=== PATIENT | male | born 1970 | race Caucasian/White ===

== ENCOUNTER 2020-02-24 09:17 | Inpatient (IN) | payer OTHER ==
[~2020-02-24] VITALS: Ht 185.5 cm; Wt 88.5 kg
[2020-02-24] MEDS ORDERED: ONDANSETRON 4 MG (ZOFRAN) ORAL DISSOLVE TAB PO PRN (09:45)
[2020-02-24] MEDS ORDERED: FLEET ENEMA ADULT 1 EA BTL PR PRN (09:45)
[2020-02-24] MEDS ORDERED: diphenhydrAMINE 25 MG TAB (BENADRYL) PO PRN (09:45)
[2020-02-24] MEDS ORDERED: DOCUSATE SODIUM 100 MG (COLACE) CAP PO PRN (09:45)
[2020-02-24] MEDS ORDERED: LACTULOSE SYRUP 10GM/15ML (ENULOSE) 30ML UDC PO PRN (09:45)
[2020-02-24] MEDS ORDERED: LOPERAMIDE 2 MG (IMODIUM) TABLET PO PRN (09:45)
[2020-02-24] MEDS ORDERED: ALPRAZolam 0.25 MG (XANAX) TAB PO PRN (09:45)
[2020-02-24] MEDS ORDERED: MELATONIN 3 MG TABLET PO PRN (09:45)
[2020-02-24] MEDS ORDERED: CALCIUM CARBONATE 500 MG (TUMS) TAB.CHEW PO PRN (09:45)
[2020-02-24] MEDS ORDERED: BISACODYL 10 MG SUPP (DULCOLAX) PR PRN (09:45)
--- NOTE | 2020-02-24 10:20 | NUR ---
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 JOSELIN BECK introduced to surroundings, call light, bed controls, phone, TV, temperature control, lights, meal times, smoking policy, visitor policy, side rail policy, bathrooms and showers. Patient Rights given to patient in the handbook. JOSELIN BECK verbalizes understanding that [facility] is not responsible for the loss or damage to any personal effects or valuables that are kept in the patient's possession during their hospitalization. The following Patient Care Plans were discussed with the PATIENT: Discharge Planning, IMPAIRED MOBILITY, HIGH RISK: IMPAIRED SKIN INTEGRITY, HIGH RISK: INJURY, and KNOWLEDGE DEFICIT. JOSELIN BECK verbalizes understanding of Interdisciplinary Patient Education. Patient received Patient Rights Booklet, which includes Privacy Act Statement and Data Collection Information Summary.
[2020-02-24 10:43] VITALS: BP 128/83
[2020-02-24] MEDS ORDERED: PRD20T PO (10:48)
[2020-02-24] MEDS ORDERED: FAMO20TA5 PO (10:48)
[2020-02-24] MEDS ORDERED: IPRA3AMP31 IH (10:48)
[2020-02-24] MEDS ORDERED: METO100T12 PO (10:48)
[2020-02-24] MEDS ORDERED: ENOX40DI8 SQ (10:48)
--- NOTE | 2020-02-24 10:49 | NUR ---
MED REC WAS ENTERED USING THE DISCHARGE ORDER FROM [facility] Addendum: 02/25/20 at 1340 by KATHERINE CHINO CPhT SPOKE WITH THE PT TO COMPLETE THE MED REC ACCORDING TO THE PT HE DOES NOT TAKE ANY PRESCRIPTION OR OTC MEDS
--- NOTE | 2020-02-24 11:06 | PM&R Post Admission Assessment ---
PM&R HP Date of Visit: Feb 24, 2020 Time of Visit: 12:00 History of Present Illness CC: Debility following Covid pneumonia HPI: This is a 49yo male clinic Pt of Dr. Tadeo Bhakta who suffered from Covid-19 pneumonia 12/23 with acute hypoxic, hypercapneic, respiratory failure secondary to ARDS and pneumonia. He was placed on a ventilator, trach was removed, has a history of HTN, acute kidney injury, hemorrhage of trach stoma, hypernatremia, anemia and leukocytosis. 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 He is currently dependent in most activities due to desaturation and severe debility. His plan is to go home with his significant other girlfriend. Corinna Oliver is a previously healthy 49yoBM admitted to [facility] rehab on 02/24/20 from [facility] and prior to that from [facility] for respiratory failure due to COVID-19. Pt was diagnosed with COVID-19 on 12/24/19 and was treating himself at home when he got progressively fatigued and short of breath which prompted him to visit the ED at [facility] on 01/04/20 where his respiratory status worsened with O2 sats 57% on 5 L NC. In the ED, he was placed on 100% non-rebreather, given Levophed for hypotension, and sent to ICU where his breathing continued to decline. In [facility] ICU, treatment escalated from BiPAP with no improvement to intubation and placement on mechanical ventilation with sedation by Propofol and Precedex. Pt unable to be weaned from vent so trach and PEG placed. To treat COVID pt received convalescent plasma, Remdesivir, a course of Decadron. He also received a 10-day course of Vancomycin and Zosyn. On 01/29/20 pt transferred to [facility] from [facility] to continue management and weaning of mechanical ventilation. At [facility] patient remained on the vent and sedated for over a week and suffered a bleed from his tracheostomy stoma requiring transfusion of 1 unit PRBC and epinephrine to control. He developed PNA due to Proteus mirabilis which was treated with 7 days of Zosyn. He began weaning off sedation on 02/05/21 and graduated to CPAP by 02/08/21 with continued improvement culminating with trach capped and toleration of room air only by 02/17/20. Patient presents today at [facility] with significant decline in functional ability and will require intensive rehabilitation to return home. JE ZHANG STUDENT Patient was admitted to the ARU during this COVID-19 emergency. The ARU is the best and most appropriate post-acute care setting for this patient at this current time. Patient meets IRF admission criteria, however will be unable to tolerate 3 hours of therapy/5 days per week. Provide specific plan, such as: This patients individualized intensive rehabilitation plan is to receive 2 hours of therapy per day, by receiving 1 hour of PT and 1 hour of OT 5 out of 7 days per the patients week. As an interdisciplinary team, we will discuss this patients ability to tolerate an increase in the intensity of therapy to be provided throughout the patients stay. Past Fyuigsn-Zspjdt-Qcabxi Hx Past Med/Social Hx: Reviewed Nursing Past Med/Soc Hx, Reviewed and Corrections made Patient Social History Marrital Status: cohabiting Employed/Student: employed ([employer]) Alcohol Use: Denies Use Smoking Status: Never a Smoker Recent Foreign Travel: No Contact w/other who traveled: No Past Medical History Respiratory: Pneumonia COVID-19 PNA PM&R Allergy/Meds/Data Review Allergies Coded Allergies: No Known Drug Allergies (Unverified , 02/24/20) Home Medications Scheduled Enoxaparin Sodium (Enoxaparin Sodium), 40 MG SQ DAILY, (Reported) Famotidine (Famotidine), 20 MG PO DAILY, (Reported) Metoprolol Tartrate (Metoprolol Tartrate), 100 MG PO BID, (Reported) Prednisone (Prednisone), 20 MG PO DAILY, (Reported) Scheduled PRN Ipratropium/Albuterol Sulfate (Iprat-Albut 0.5-3(2.5) mg/3 ml), 3 ML IH Q6H PRN for SHORTNESS OF BREATH, (Reported) Current Medications Current Medications Reviewed Review of Systems Constitutional: see HPI, malaise, weakness EENTM: no symptoms reported Respiratory: cough, dyspnea on exertion, short of breath, wheezing Cardiovascular: no symptoms reported Gastrointestinal: no symptoms reported Genitourinary: no symptoms reported Musculoskeletal: back pain Skin: no symptoms reported Psychiatric/Neurological: No Symptoms Reported Physical Exam Physical Exam Vital Signs Vital Signs - First Documented 02/24/20 10:43 Temp 36.6 Pulse 98 Resp 18 B/P (MAP) 128/83 (98) Pulse Ox 92 O2 Delivery Room Air Capillary Refill : Height, Weight, BMI Height: '" Weight: lbs. oz. kg; BMI Method: General Appearance: No Apparent Distress, WD/WN, Anxious, Thin Eyes: Bilateral Eye Normal Inspection, Bilateral Eye PERRL HEENT: PERRL/EOMI, Normal ENT Inspection, Pharynx Normal Neck: Full Range of Motion, Normal Inspection, Non Tender, Supple, Carotid Bruit Respiratory: Chest Non Tender, Lungs Clear, No Accessory Muscle Use, No Respiratory Distress, Decreased Breath Sounds Cardiovascular: Regular Rate, Rhythm, No Edema, No Gallop, No JVD, No Murmur, Normal Peripheral Pulses Gastrointestinal: Normal Bowel Sounds, No Organomegaly, No Pulsatile Mass, Non Tender, Soft Back: Normal Inspection, No CVA Tenderness, No Vertebral Tenderness Extremity: Normal Capillary Refill, Normal Inspection, Normal Range of Motion, Non Tender, No Calf Tenderness, No Pedal Edema Neurologic/Psychiatric: Alert, Oriented x3, No Motor/Sensory Deficits, Abnormal Gait, Depressed Affect, Motor Weakness (generalized all extremities) Skin: Normal Color, Warm/Dry Lymphatic: No Adenopathy PM&R Medical Assessment & Plan REHAB/MEDICAL ASSESSMENT AND PLAN: REHAB IMPAIRMENT GROUP: 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 ETIOLOGIC DIAGNOSIS: 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 The comorbidities that impact the patients function and/or functional outcome by:frail status, poor reserve, catastrophic lung dysfunction REHAB PLAN: The patient is being admitted to our comprehensive inpatient rehabilitation facility and can tolerate the intensity of service consisting of at least: 180 minutes of therapy a day, 5 out of 7 days a week Rehab treatment will consist of: PT OT will focus on regaining strength and ambulatory skills along with increase in ADL independence in order to return to live independently The patient/family has a good understanding of our discharge process and will benefit from an interdisciplinary inpatient rehabilitation program. The patient has potential to make improvement and is in need of at least two of the following multidisciplinary therapies including but not limited to physical, occupational, speech, and prosthetics and orthotics. Additionally the patient will need services from respiratory, nutritional services, wound care, psychology, etc. (Customize this to each patient). Given the patients complex condition and risk of further medical complications, rehabilitation services cannot be safely or effectively provided at a lower level of care such as a group home facility. BARRIERS TO DISCHARGE: Severe myopathy from COVID-19 ESTIMATED LOS: 10 days DISPOSITION: Home RELEVANT CHANGES SINCE PREADMISSION SCREENING: I have compared the patients medical and functional status at the time of the preadmission screening and there are: no changes PROGNOSIS: Good REHABILITATION GOALS: 1. PT OT will focus on regaining strength and ambulatory skills along with increase in ADL independence in order to return to live independently All the above goals were reviewed with the patient and he/she is in agreement. By signing this document, I acknowledge that I have personally performed a full physical examination on this patient within 24 hours of admission to this inpatient rehabilitation facility and have determined the patient to be able to tolerate the above course of treatment at an intensive level for a reasonable period of time. I will be completing a detailed individualized Plan of Care for this patient by day #4 of the patients stay based upon the Preadmission Screen, the Post-Admission Evaluation, and the therapy evaluations. 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
[2020-02-24] MEDS ORDERED: ACETAMINOPHEN 325 MG TABLET PO PRN (11:15)
[2020-02-24] MEDS ORDERED: RT-ALBUTEROL/IPRATROPIUM 3 ML (DUONEB) VIAL IH PRN (11:15)
--- NOTE | 2020-02-24 11:55 | Progress Note ---
JE ZHANG MED STUDENT 02/24/20 1155: Progress Note Corinna Oliver is a previously healthy 49yoBM admitted to [facility] rehab on 02/24/20 from [facility] and prior to that from [facility] for respiratory failure due to COVID-19. Pt was diagnosed with COVID-19 on 12/24/19 and was treating himself at home when he got progressively fatigued and short of breath which prompted him to visit the ED at [facility] on 01/04/20 where his respiratory status worsened with O2 sats 57% on 5 L NC. In the ED, he was placed on 100% non-rebreather, given Levophed for hypotension, and sent to ICU where his breathing continued to decline. In [facility] ICU, treatment escalated from BiPAP with no improvement to intubation and placement on mechanical ventilation with sedation by Propofol and Precedex. Pt unable to be weaned from vent so trach and PEG placed. To treat COVID pt received convalescent plasma, Remdesivir, a course of Decadron. He also received a 10-day course of Vancomysin and Zosyn. On 01/29/20 pt transferred to [facility] from [facility] to continue management and weaning of mechanical ventilation. At [facility] patient remained on the vent and sedated for over a week and suffered a bleed from his tracheostomy stoma requiring transfusion of 1 unit PRBC and epinephrine to control. He developed PNA due to Proteus mirabilis which was treated with 7 days of Zosyn. He began weaning off sedation on 02/05/21 and graduated to CPAP by 02/08/21 with continued improvement culminating with trach capped and toleration of room air only by 02/17/20. Patient presents today at [facility] with significant decline in functional ability and will require intensive rehabilitation to return home. PEG MAGALLON DO 02/25/20 0607: Supervisory-Addendum Brief Verification & Attestation Participated in pt care: history, MDM, physical Personally performed: exam, history, MDM, supervision of care Care discussed with: Medical Student Procedures: n/a Results interpretation: Verified all documentation Verification and Attestation of Medical Student E/M Service A medical student performed and documented this service in my presence. I reviewed and verified all information documented by the medical student and made modifications to such information, when appropriate. I personally performed the physical exam and medical decision making. Peg Magallon, Feb 25, 2020,06:07 JE ZHANG MED STUDENT Feb 24, 2020 11:55 PEG MAGALLON DO Feb 25, 2020 06:07
[2020-02-24] MEDS ORDERED: PHARMACY TO DOSE PO SCH (13:00)
--- NOTE | 2020-02-24 14:20 | Occupational Ther Daily Note ---
OT Current Status-Daily Note Subjective Pt AxO, does not rate pain. Pleasant throughout. Pt agrees to OT tx, though denies OOB. Mental Status/Objective Patient Orientation: Person, Place, Situation ADL-Treatment Therapy Code Descriptions/Definitions Functional [place] Measure: 0=Not Assessed/NA 4=Minimal Assistance 1=Total Assistance 5=Supervision or Setup 2=Maximal Assistance 6=Modified [place] 3=Moderate Assistance 7=Complete IndependenceSCALE: Activities may be completed with or without assistive devices. 1-Kqqiyxatpe-zstvjcj completes the activity by him/herself with no assistance from a helper. 5-Set-up or Clean-up Assistance-helper sets up or cleans up; patient completes activity. Spade assists only prior to or following the activity. 4-Supervision or Touching Assistance-helper provides verbal cues and/or touch ing/steadying and/or contact guard assistance as patient completes activity. Assistance may be provided throughout the activity or intermittently. 3-Partial/Moderate Assistance-helper does LESS THAN HALF the effort. Spade lifts, holds or supports trunk or limbs, but provides less than half the effort. 2-Substantial/Maximal Assistance-helper does MORE THAN HALF the effort. Spade lifts or holds trunk or limbs and provides more than half the effort. 9-Nntnrobia-ptolgj does ALL the effort. Patient does none of the effort to complete the activity. Or, the assistance of 2 or more helpers is required for the patient to complete the activity. If activity was not attempted, code reason: 7-Patient Refused. 9-Not Applicable-not attempted and the patient did not perform the activity before the current illness, exacerbation or injury. 10-Not Attempted due to Environmental Limitations-(lack of equipment, weather restraints, etc.). 88-Not Attempted due to Medical Conditions or Safety Concerns. Other Treatment Pt agrees to bed ex. HEP given and each activity demonstrated/ minimal cues for proper placement. Pt able to complete the following ex (10-15 reps) with resistance band with RUE: bicep curls, shoulder external/ internal rotation. Com pletes the following against gravity with RUE: shoulder flexion to 90*. LUE completes the following against gravity with noted shaking during full motion: shoulder flexion with assist for reaching 90*, able to stabilize in this position 3-4 seconds, x 5 trials. Pt able to utilize back/ triceps to push LUE into bedding on way down. Pt completes the following with theraband LUE: bicep curls, shoulder internal/ external rotation. Skilled modifications of activity per pt tolerance. Pt's LUE ranged to full range in shoulder flexion and abduction. All needs met, call light in reach, pt left with PT end of session. Education OT Patient Education: Exercise program, Home exercise program, Purpose of tx/functional activities, Safety issues Teaching Recipient: Patient Teaching Methods: Demonstration, Handout, Discussion Response to Teaching: Verbalize Understanding, Return Demonstration, Reinforcement Needed OT Imaging System Administrator Goals [facility] Goals Eating (QC): 6 Oral Hygiene (QC): 6 Toileting Hygiene (QC): 6 Shower/Bathe Self (QC): 6 Upper Body Dressing (QC): 6 Lower Body Dressing (QC): 6 On/Off Footwear (QC): 6 1=Demonstrate adherence to instructed precautions during ADL tasks. 2=Patient will verbalize/demonstrate understanding of assistive devices/mod ifications for ADL. 3=Patient will improve strength/tolerance for activity to enable patient to perform ADL's. OT Education/Plan Problem List/Assessment Assessment: Decreased Activ Tolerance, Decreased UE Strength, Dependent Transfers, Edema, Impaired Bed Mobility, Impaired Funct Balance, Impaired I ADL's, Impaired Self-Care Skills, Restricted Funct UE ROM Discharge Recommendations Plan/Recommendations: Continue POC Therapy Discharge Recommendati: Home & Family, Post Acute OT Treatment Plan/Plan of Care Treatment,Training & Education: Yes Patient would benefit from OT for education, treatment and training to promote independence in ADL's, mobility, safety and/or upper extremity function for ADL's. Plan of Care: ADL Retraining, Caregiver Training, Concurrent Therapy, Functional Mobility, Group Exercise/Act as Ind, UE Funct Exercise/Act, UE Neuromus Re-Ed/Coord Treatment Duration: Mar 09, 2020 Frequency: At least 5 of 7 days/Wk (IRF) Estimated Hrs Per Day: 1.5 hours per day Agreement: Yes Rehab Potential: Fair Time/GCodes Start Time: 13:55 Stop Time: 14:15 Total Time Billed (hr/min): 20 Billed Treatment Time 1, EX (20) MONA CASTRO OTAlicia Feb 24, 2020 14:20
--- NOTE | 2020-02-24 14:34 | Physical Therapy Evaluation ---
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 He presented to the hospital for admission on 01/04/20 due to respiratory failure. Sats were noted to be 57% on 5L in the ER. Eventually intubated and placed on ventilator. Initially unable to be weaned from vent, had trach and PEG tube placement. Pt has since weaned to RA, transferred to ARU this date from [facility]. Reviewed History: Yes Social History Home: Single Level Current Living Status: Significant Other Entry Into Home: Stairs Without Railing PT Steps Into Home: 3 Prior Prior Level of Function SCALE: Activities may be completed with or without assistive devices. 8-Sxaxlumxgl-qkhypsy completes the activity by him/herself with no assistance from a helper. 5-Set-up or Clean-up Assistance-helper sets up or cleans up; patient completes activity. [place] assists only prior to or following the activity. 4-Supervision or Touching Assistance-helper provides verbal cues and/or touching/steadying and/or contact guard assistance as patient completes activit y. Assistance may be provided throughout the activity or intermittently. 3-Partial/Moderate Assistance-helper does LESS THAN HALF the effort. [place] lifts, holds or supports trunk or limbs, but provides less than half the effort. 2-Substantial/Maximal Assistance-helper does MORE THAN HALF the effort. [place] lifts or holds trunk or limbs and provides more than half the effort. 9-Zxekidqcm-hqlurn does ALL the effort. Patient does none of the effort to complete the activity. Or, the assistance of 2 or more helpers is required for the patient to complete the activity. If activity was not attempted, code reason: 7-Patient Refused. 9-Not Applicable-not attempted and the patient did not perform the activity before the current illness, exacerbation or injury. 10-Not Attempted due to Environmental Limitations-(lack of equipment, weather restraints, etc.). 88-Not Attempted due to Medical Conditions or Safety Concerns. 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 Denies pain but reports fatigue. Pain Numeric Pain Scale: 0-No Pain Pt/Family Goals Home Objective Patient Orientation: Person, Place, Time, Situation ROM/Strength ROM Upper Extremities See OT ROM Lower Extremities Grossly WFL for functional mobility Strength Upper Extremities See OT Strength Lower Extremities (B) DF grossly 3+/5, PF 2/5 (B) knee flexion and extension: 3-/5 (B) hips grossly: 3-/5 Integumentary/Posture Integumentary See nurses' notes Posture Pt very weak, sits EOB with posterior pelvic tilt, flexed posture. Difficulty maintaining upright posture over time, frequently hanging his head. Neuromuscular (Tone, Coordination, Reflexes) Tremors with exertion in (B) UE and LE Sensory Vision: Functional Hearing: Functional Hand Dominance: Right Sensation Right Lower Extremit: Intact Sensation Left Lower Extremity: Intact Transfers Roll Left & Right (QC): 6 Sit to Lying (QC): 3 Lying to Sitting/Side of Bed(Q: 3 Sit to Stand (QC): 1 Chair/Fhs-jg-Gjdsw Xfer(QC): 88 Toilet Transfer (QC): 88 Car Transfer (QC): 88 Pt sat EOB x 30' with VCS for posture. Good sitting balance but demonstrates postural fatigue. Pt only able to maintain standing at FWW for roughly 15" before needing to sit due to LE fatigue. Gait Does the Patient Walk?: No and Walking Goal IS indicated Mode of Locomotion: Walk Anticipated Mode of Locomotion: Walk Walk 10 feet (QC): 88 Walk 50 ft with 2 Turns(QC): 88 Walk 150 ft (QC): 88 Walking 10ft/uneven surface-QC: 88 Gait Assistive Device: FWW Comments/Gait Description Pt only able to stand roughly 15" before returning to sit due to poor functional activity tolerance. Wheelchair Training Does the Pt Use a Wheelchair?: No Wheel 50 ft with 2 turns (QC): 9 Wheel 150 ft (QC): 9 Type of Wheelchair: N/A Stairs 1 Step (curb) (QC): 88 4 Steps (QC): 88 12 Steps (QC): 88 Pt with poor functional activity tolerance; only able to tolerate static standing for roughly 15" this date. Balance Sitting Static: Good Sitting Dynamic: Good Standing Static: Fair Standing Dynamic: Fair Picking up an Object (QC): 88 Treatment Eval. Sitting EOB with VCS for posture, reviewed supine postural exercises. At EOB with OT at end of treatment. Assessment/Needs Pt is a 49 y.o. male with debility s/p Covid 19 hospitalization. Pt would benefit from skilled PT to improve functional activity tolerance, functional strength and (I) with functional mobility to allow safe return home with S.O. with decreased caregiver burden. Rehab Potential: Good PT Short Term Goals Short Term Goals Time Frame: Mar 09, 2020 Roll Left & Right: 6 Sit to lyin Lying to sitting on side of be: 6 Sit to stand: 6 Chair/vfe-sc-bvdlt transfer: 6 PT Home Theater Expert Goals Home Theater Expert Goals PT Home Theater Expert Goals Time Frame: Mar 16, 2020 Roll Left & Right (QC): 6 Sit to Lying (QC): 6 Lying-Sitting on Side/Bed(QC): 6 Sit to Stand (QC): 6 Chair/Uoq-vb-Lljer Xfer(QC): 6 Toilet Transfer (QC): 6 Car Transfer (QC): 5 Does the Patient Walk: No and Walking Goal IS indicated Walk 10 feet (QC): 6 Walk 50ft with 2 Turns (QC): 6 Walk 150 ft (QC): 6 Walking 10ft on Uneven Surface: 6 1 Step (curb) (QC): 6 4 Steps (QC): 5 12 Steps (QC): 5 Picking up an Object (QC): 6 Does the Pt use WC or Scooter?: No Wheel 50 feet with 2 turns (QC: 9 Type: N/A Wheel 150 feet: 9 Type: N/A PT LTGs established to allow safe return home with S.O. with decreased caregiver burden. PT Plan Problem List Problem List: Activity Tolerance, Functional Strength, Safety, Balance, Gait, Transfer, Bed Mobility Treatment/Plan Treatment Plan: Continue Plan of Care Treatment Plan: Bed Mobility, Education, Functional Activity Day, Functional Strength, Group Therapy, Gait, Safety, Therapeutic Exercise, Transfers Treatment Duration: Mar 16, 2020 Frequency: Modified Program (IRF) Estimated Hrs Per Day: Other Patient and/or Family Agrees t: Yes Due to a COVID-19 viral infection, the patient has deficits that warrant inpatie nt Acute Rehab. The patient will clearly benefit from intensive PT and OT, however, due to patient's observed endurance and therapy considerations, he may not be able to tolerate the full 3 hours of scheduled therapy. Therefore, he will be scheduled for as much therapy as he can tolerate with intentional rest breaks, shortened sessions, including providing therapy across 6 to 7 days. As the patient tolerates, the intensity, frequency, and duration of his therapy program will be increased. Safety Risks/Education Teaching Recipient: Patient Teaching Methods: Discussion Response to Teaching: Verbalize Understanding Role of PT, POC Discharge Recommendations Barriers to Progress poor functional activity tolerance Time/GCodes Time In: 1020 Time Out: 1100 Total Billed Treatment Time: 30 Total Billed Treatment 1, EVHIGH x 10', FA x 20' [id number] EVHIGH [id number] OT eval [id number] Co-treat with OT Co-treat with OT due level of assist required and poor functional activity tolerance. PT addressing posture, LE's and transfers; OT addressing UE and ADLs. PILY MERAZ DPT Feb 24, 2020 14:33
--- NOTE | 2020-02-24 14:59 | ST Cognitive Linguistic Eval ---
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 Language Eval: Auditory Comprehends Simple Yes/No Ques: Functional Indent/Objects Multiple Lara: Functional Ident/Pics in Multiple Lara: Functional Follows 1-Step Commands: Functional Follows Complex Directions: Functional Follows General Conversations: Functional Language Eval: Verbal Language Completes Spontaneous Greeting: Functional Produces Auto, Serial Info: Functional Imitates Simple Words/Phrases: Functional Word Finding: Functional Requests Basic Needs: Functional States Basic Personal Info: Functional Expresses Complex Ideas: Functional Objective Cognitive Domain Attention: WNL Memory: WNL Problem Solving: Functional Executive Functions: WNL Visuospatial Skills: WNL Composite Severity Rating: WNL Clock Drawing Severity Rating: WNL Objective Formal/Standardized Tests [facility] Mental Status ([facility]) Results 28/30, within normal limits of function Oral Motor/Speech Production Within Normal Limits Impression Patient is a 49 y/o male who was admitted to the ARU s/p COVID. Patient was given the SLUMS at bedside with a score of 28/30 obtained. This score is within normal limits and does not warrant further ST services. Speech Patient Assess Expression of Ideas/Wants: Expression (4) Understanding Verbal Content: Understands (4) Brief Interview-Mental Status: Yes Repetition of Three Words: Three (3) Temporal Orientation: Year: Correct (3) Temporal Orientation: Month: Accurate within 5 days(2) Temporal Orientation: Day: Correct (1) Recall : Wear to say "Sock": Yes, no cue required (2) Recall : Color: Yes, no cue required (2) Recall : Bed: Yes,after cueing (1) Memory/Recall Ability: Current season, That he or she is in a hsp/hsp unit Speech-Plan Patient/Family Goals Patient/Family Goals: Patient plans on returning to his home upon discharge from ARU. Treatment Plan Speech Therapy Treatment Plan: Discontinue ST Treatment Duration: Feb 24, 2020 Frequency: 1 time per week Estimated Hrs Per Day: .25 hour per day Rehab Potential: Good Barriers to Learning: None identified Pt/Family Agrees to Plan: Yes Safety Risks/Education Teaching Recipient: Patient Teaching Methods: Discussion Response to Teaching: Verbalize Understanding Education Topics Provided: Safety within his room, communication of wants/needs Time Speech Therapy Time In: 14:50 Speech Therapy Time Out: 15:05 Total Billed Time: 15 Billed Treatment Time 1, SPSNDCOMP WILLARD Singleton Feb 24, 2020 14:59
--- NOTE | 2020-02-24 15:38 | Physical Therapy Daily Note ---
PT Daily Note-Current Subjective Pt laying Supine in bed after finishing with OT upon arrival. Pt agrees to PT. Pain Location Body Site: Abdomen Pain Description: Ache Mental Status Patient Orientation: Person, Place, Situation Attachments: PEG Tube Transfers SCALE: Activities may be completed with or without assistive devices. 4-Lkypofvwqm-dgjssto completes the activity by him/herself with no assistance from a helper. 5-Set-up or Clean-up Assistance-helper sets up or cleans up; patient completes activity. [place] assists only prior to or following the activity. 4-Supervision or Touching Assistance-helper provides verbal cues and/or touching/steadying and/or contact guard assistance as patient completes activity. Assistance may be provided throughout the activity or intermittently. 3-Partial/Moderate Assistance-helper does LESS THAN HALF the effort. [place] lifts, holds or supports trunk or limbs, but provides less than half the effort. 2-Substantial/Maximal Assistance-helper does MORE THAN HALF the effort. [place] lifts or holds trunk or limbs and provides more than half the effort. 2-Smvdbsygy-dfabzl does ALL the effort. Patient does none of the effort to complete the activity. Or, the assistance of 2 or more helpers is required for the patient to complete the activity. If activity was not attempted, code reason: 7-Patient Refused. 9-Not Applicable-not attempted and the patient did not perform the activity before the current illness, exacerbation or injury. 10-Not Attempted due to Environmental Limitations-(lack of equipment, weather restraints, etc.). 88-Not Attempted due to Medical Conditions or Safety Concerns. Weight Bearing Right Lower Extremity: Right Full Weight Bearing Left Lower Extremity: Left Full Weight Bearing Exercises Supine Ex: Ankle pumps, Quad Set, Glut sets, Heel Slides, Straight leg raise, Hip abd/add Supine Reps: 15 Treatments Pt completes Supine Ex with RB as needed. Pt resting Supine in bed as ST a rrives. All needs met, call light in hand. Assessment Current Status: Good Progress Pt is motivated and continues to push self throughout tx. PT Short Term Goals Short Term Goals Time Frame: Mar 09, 2020 Roll Left & Right: 6 Sit to lyin Lying to sitting on side of be: 6 Sit to stand: 6 Chair/lgu-dk-fioja transfer: 6 PT Assisted Goals Salvage Clerk Goals PT Assisted Goals Time Frame: Mar 16, 2020 Roll Left & Right (QC): 6 Sit to Lying (QC): 6 Lying-Sitting on Side/Bed(QC): 6 Sit to Stand (QC): 6 Chair/Mqv-hv-Urfcw Xfer(QC): 6 Toilet Transfer (QC): 6 Car Transfer (QC): 5 Does the Patient Walk: No and Walking Goal IS indicated Walk 10 feet (QC): 6 Walk 50ft with 2 Turns (QC): 6 Walk 150 ft (QC): 6 Walking 10ft on Uneven Surface: 6 1 Step (curb) (QC): 6 4 Steps (QC): 5 12 Steps (QC): 5 Picking up an Object (QC): 6 Does the Pt use WC or Scooter?: No Wheel 50 feet with 2 turns (QC: 9 Type: N/A Wheel 150 feet: 9 Type: N/A PT Plan Problem List Problem List: Activity Tolerance, Functional Strength Treatment/Plan Treatment Plan: Continue Plan of Care Treatment Plan: Bed Mobility, Education, Functional Activity Day, Functional Strength, Group Therapy, Gait, Safety, Therapeutic Exercise, Transfers Treatment Duration: Mar 16, 2020 Frequency: Modified Program (IRF) Estimated Hrs Per Day: Other Patient and/or Family Agrees t: Yes Safety Risks/Education Patient Education: Correct Positioning, Safety Issues Teaching Recipient: Patient Teaching Methods: Discussion Response to Teaching: Verbalize Understanding Time/GCodes Time In: 1420 Time Out: 1450 Total Billed Treatment Time: 30 Total Billed Treatment 1, EX x2 (30m) ALLISON CASTELLANOS PTA Feb 24, 2020 15:38
--- NOTE | 2020-02-24 15:46 | Occupational Therapy Eval ---
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 admitted on 01-04-20 with respiratory failure. Diagnosed with Covid on 12-24-19. Intubated and trach/PEG tube placed. Reviewed History: Yes Social History Home: Single Level Current Living Status: Significant Other Entry Into Home: Stairs Without Railing Steps Into Home: 3 ADL-Prior Level of Function SCALE: Activities may be completed with or without assistive devices. 4-Mrbafwypzm-tqwmypz completes the activity by him/herself with no assistance from a helper. 5-Set-up or Clean-up Assistance-helper sets up or cleans up; patient completes activity. [place] assists only prior to or following the activity. 4-Supervision or Touching Assistance-helper provides verbal cues and/or touching /steadying and/or contact guard assistance as patient completes activity. Assistance may be provided throughout the activity or intermittently. 3-Partial/Moderate Assistance-helper does LESS THAN HALF the effort. [place] lifts, holds or supports trunk or limbs, but provides less than half the effort. 2-Substantial/Maximal Assistance-helper does MORE THAN HALF the effort. [place] lifts or holds trunk or limbs and provides more than half the effort. 2-Jtjvdcuag-tsnpni does ALL the effort. Patient does none of the effort to complete the activity. Or, the assistance of 2 or more helpers is required for the patient to complete the activity. If activity was not attempted, code reason: 7-Patient Refused. 9-Not Applicable-not attempted and the patient did not perform the activity before the current illness, exacerbation or injury. 10-Not Attempted due to Environmental Limitations-(lack of equipment, weather restraints, etc.). 88-Not Attempted due to Medical Conditions or Safety Concerns. ADL PLOF Comments Pt. was independent with all daily skills. 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 Pt. does report that he feels very fatigued. Mental Status/Objective Patient Orientation: Person, Place, Time, Situation Attachments: PEG Tube Current Hand Dominance: Right Upper Extremity ROM Pt. has limited shoulder AROM. He is able to flex bilateral shoulders to approximately 30 degrees. WFL in all other joints. Upper Extremity Strength 2+/5 bilateral elbows flexion, approximately 3/5 bilateral hands. Pt. verbalizes that he has tremors in bilateral hands. He states that he had them mildly before becoming sick, but they are more pronounced now after being ill. ADL-Treatment Eating (QC): 4 (Pt. issued weighted utensils to assist with tremors when feeding self.) Oral Hygiene (QC): 7 Shower/Bathe Self (QC): 88 Upper Body Dressing (QC): 2 (Pt. reports that today was the first day he has had street clothing on. Nursing at previous location donned shirt for him.) Lower Body Dressing (QC): 2 On/Off Footwear (QC): 2 Toileting Hygiene (QC): 2 (Pt. reports that he requires max assist for toileting tasks.) Other Treatments Pt. admitted this date via EMS. Pt. seen for co-treatment by PT/OT due to need of skilled assistance x 2 for weakness, severe debility, and skill acquisition. OT assessed ADL skills and UE strength while PT focused on LE strengthening and transfers/mobility. Pt. requires mod assist for supine-sit, and min x 2 for sit-stand. Pt. had on street clothing, and reports that the nursing staff assisted him prior to discharge from acute facility. Pt. verbalizes that he just started to feed self several days ago, as he required assistance due to weakness and tremors. OT issues pt. hand therapy sponge for continued strengthening, as well as heavy utensils. Pt. requests diet sprite. OT obtains this for him, and pt. is unable to open the bottle on his own. Pt. able to sit on side of bed with appropriate posture, but has difficulty keeping head upright due to weakness. Pt. is able to stand several more times at walker with min assistance x 2. He is unable to stand for very long, (Please see PT note). Pt. transfers sit-supine with mod assistance. All needs are met at bed level. Education OT Patient Education: Correct positioning, Exercise program, Modified ADL techniques, Progress toward Goal/Update tx plan, Purpose of tx/functional activities, Reviewed precautions, Rehab process, Transfer techniques Teaching Recipient: Patient Teaching Methods: Demonstration, Discussion Response to Teaching: Verbalize Understanding, Return Demonstration OT Short Term Goals Short Term Goals Time Frame: Mar 09, 2020 Eatin Oral hygiene: 5 Toileting hygiene: 4 Shower/bathe self: 4 Upper body dressin Lower body dressin Putting on/taking off footwear: 4 OT [employer] Supervisor Goals [facility] Goals Time Frame: Mar 23, 2020 Eating (QC): 6 Oral Hygiene (QC): 6 Toileting Hygiene (QC): 6 Shower/Bathe Self (QC): 4 Upper Body Dressing (QC): 6 Lower Body Dressing (QC): 6 On/Off Footwear (QC): 6 Additional Goals: 1-Demonstrate ADL Tasks, 2-Verbalize Understanding, 3- ImproveStrength/Day 1=Demonstrate adherence to instructed precautions during ADL tasks. 2=Patient will verbalize/demonstrate understanding of assistive devices/modifications for ADL. 3=Patient will improve strength/tolerance for activity to enable patient to perform ADL's. OT Education/Plan Problem List/Assessment Assessment: Decreased Activ Tolerance, Decreased UE Strength, Dependent Transfers, Impaired Bed Mobility, Impaired Funct Balance, Impaired I ADL's, Impaired Self-Care Skills, Restricted Funct UE ROM Discharge Recommendations Plan/Recommendations: Continue POC Therapy Discharge Recommendati: Home & Family, Post Acute OT Treatment Plan/Plan of Care Treatment,Training & Education: Yes Patient would benefit from OT for education, treatment and training to promote independence in ADL's, mobility, safety and/or upper extremity function for ADL's. Plan of Care: ADL Retraining, Caregiver Training, Concurrent Therapy, Fun ctional Mobility, Group Exercise/Act as Ind, UE Funct Exercise/Act, UE Neuromus Re-Ed/Coord Treatment Duration: Mar 09, 2020 Frequency: Modified Program (IRF) Estimated Hrs Per Day: 1 hour per day Agreement: Yes Rehab Potential: Good Due to a COVID-19 viral infection, the patient has deficits that warrant inpatient Acute Rehab. The patient will clearly benefit from intensive PT and OT, however, due to patient's observed endurance and therapy considerations, he may not be able to tolerate the full 3 hours of scheduled therapy. Therefore, he will be scheduled for as much therapy as he can tolerate with intentional rest breaks, shortened sessions, including providing therapy across 6 to 7 days. As the patient tolerates, the intensity, frequency, and duration of his therapy program will be increased. Time/GCodes Start Time: 10:20 Stop Time: 11:15 Total Time Billed (hr/min): 45 Billed Treatment Time 2541-5963 PT eval, no charge [id number] 1, EVH x 10minutes [id number] FA x 35minutes. Co-treatment with PT. Please see above note for designated roles. SIMON WHITLEY OT Feb 24, 2020 15:46
[2020-02-24 17:26] VITALS: BP 126/84
[2020-02-24] MEDS: meTOprolol TARTRATE 50 MG (LOPRESSOR) TAB PO SCH (20:33)
[2020-02-24] MEDS: DOCUSATE SODIUM 100 MG (COLACE) CAP PO SCH (20:36)
[2020-02-24] MEDS: polyethylene glycoL POWDER 17 GM (MIRALAX) PACK PO SCH (20:36)
[2020-02-24] MEDS: SENNA W/DOCUSATE (SENOKOT S) TABLET PO SCH (20:36)
[2020-02-25 05:57] LABS: BASOPHILS # (AUTO) 0.1 10^3/uL (0.0-0.1); BASOPHILS % (AUTO) 1 % (0-10); EOSINOPHILS # (AUTO) 0.5 10^3/uL (0.0-0.3); EOSINOPHILS % (AUTO) 5 % (0-10); HEMATOCRIT 33 % (40-54); HEMOGLOBIN 10.3 g/dL (13.3-17.7); LYMPHOCYTES # (AUTO) 2.4 10^3/uL (1.0-4.0); LYMPHOCYTES % (AUTO) 26 % (12-44); MEAN CORPUSCULAR HEMOGLOBIN 30 pg (25-34); MEAN CORPUSCULAR HGB CONC 31 g/dL (32-36); MEAN CORPUSCULAR VOLUME 95 fL (80-99); MONOCYTES # (AUTO) 0.8 10^3/uL (0.0-1.0); MONOCYTES % (AUTO) 9 % (0-12); NEUTROPHILS # (AUTO) 5.4 10^3/uL (1.8-7.8); NEUTROPHILS % (AUTO) 59 % (42-75); PLATELET COUNT 198 10^3/uL (130-400); WHITE BLOOD COUNT 9.2 10^3/uL (4.3-11.0)
[2020-02-25 06:00] VITALS: BP 119/71
[2020-02-25 06:05] LABS: ALBUMIN 3.2 GM/DL (3.2-4.5); CHLORIDE 103 MMOL/L (98-107); POTASSIUM 3.7 MMOL/L (3.6-5.0); SODIUM 138 MMOL/L (135-145)
[2020-02-25 06:07] LABS: CALCIUM 8.5 MG/DL (8.5-10.1)
[2020-02-25 06:08] LABS: GLUCOSE 92 MG/DL (70-105); TOTAL PROTEIN 6.1 GM/DL (6.4-8.2)
[2020-02-25 06:09] LABS: BILIRUBIN,TOTAL 0.4 MG/DL (0.1-1.0); CARBON DIOXIDE 25 MMOL/L (21-32)
[2020-02-25 06:11] LABS: ALKALINE PHOSPHATASE 97 U/L (40-136); GFR ESTIMATED > 60
[2020-02-25 06:12] LABS: BUN/CREATININE RATIO 13
[2020-02-25 06:14] LABS: ALANINE AMINOTRANSFERASE 79 U/L (0-55)
[2020-02-25] MEDS: meTOprolol TARTRATE 50 MG (LOPRESSOR) TAB PO SCH ×2 (09:07→20:22)
[2020-02-25] MEDS: FAMOTIDINE 20 MG (PEPCID) TABLET PO SCH (09:07)
[2020-02-25] MEDS: ENOXAPARIN 40 MG/0.4 ML (LOVENOX) SYR SQ SCH (09:09)
[2020-02-25] MEDS: DOCUSATE SODIUM 100 MG (COLACE) CAP PO SCH ×2 (09:10→20:21)
[2020-02-25] MEDS: SENNA W/DOCUSATE (SENOKOT S) TABLET PO SCH ×2 (09:10→20:22)
[2020-02-25] MEDS: polyethylene glycoL POWDER 17 GM (MIRALAX) PACK PO SCH ×2 (09:10→20:22)
[2020-02-25] MEDS: predniSONE 20 MG TAB PO SCH (09:15)
--- NOTE | 2020-02-25 10:33 | PM&R Progress Note ---
Subjective HPI/CC On Admission Date Seen by Provider: Feb 25, 2020 Time Seen by Provider: 10:30 Subjective/Events-last exam 02/25/20: Wants PEG tube removed History of placement 01/27/20 No issues Up in chair today Tachycardia noted and on BB NO pain Review of Systems General: Fatigue, Malaise Neurological: Weakness, Incoordination Objective Exam Vital Signs Vital Signs Date Time Temp Pulse Resp B/P (MAP) Pulse Ox O2 Delivery O2 Flow Rate FiO2 02/25/20 21:36 Room Air 02/25/20 20:22 105 120/80 (93) 02/25/20 18:00 37.2 18 97 Capillary Refill : General Appearance: No Apparent Distress, WD/WN, Anxious, Thin HEENT: PERRL/EOMI, Normal ENT Inspection, Pharynx Normal Neck: Full Range of Motion, Normal Inspection, Non Tender, Supple, Carotid Bruit Respiratory: Chest Non Tender, Lungs Clear, No Accessory Muscle Use, No Respiratory Distress, Decreased Breath Sounds Cardiovascular: Regular Rate, Rhythm, No Edema, No Gallop, No JVD, No Murmur, Normal Peripheral Pulses Gastrointestinal: Normal Bowel Sounds, No Organomegaly, No Pulsatile Mass, Non Tender, Soft Back: Normal Inspection, No CVA Tenderness, No Vertebral Tenderness Extremity: Normal Capillary Refill, Normal Inspection, Normal Range of Motion, Non Tender, No Calf Tenderness, No Pedal Edema Neurologic/Psychiatric: Alert, Oriented x3, No Motor/Sensory Deficits, Abnormal Gait, Depressed Affect, Motor Weakness (generalized all extremities) Skin: Normal Color, Warm/Dry Lymphatic: No Adenopathy Results/Procedures Lab Laboratory Tests 02/25/20 05:45 Patient resulted labs reviewed. FIM Transfers Therapy Code Descriptions/Definitions Functional [place] Measure: 0=Not Assessed/NA 4=Minimal Assistance 1=Total Assistance 5=Supervision or Setup 2=Maximal Assistance 6=Modified [place] 3=Moderate Assistance 7=Complete IndependenceSCALE: Activities may be completed with or without assistive devices. 1-Oxslizbjjt-zxbpeav completes the activity by him/herself with no assistance from a helper. 5-Set-up or Clean-up Assistance-helper sets up or cleans up; patient completes activity. [place] assists only prior to or following the activity. 4-Supervision or Touching Assistance-helper provides verbal cues and/or touching/steadying and/or contact guard assistance as patient completes activity. Assistance may be provided throughout the activity or intermittently. 3-Partial/Moderate Assistance-helper does LESS THAN HALF the effort. [place] lifts, holds or supports trunk or limbs, but provides less than half the effort. 2-Substantial/Maximal Assistance-helper does MORE THAN HALF the effort. [place] lifts or holds trunk or limbs and provides more than half the effort. 2-Lygrlosev-hxrgut does ALL the effort. Patient does none of the effort to complete the activity. Or, the assistance of 2 or more helpers is required for the patient to complete the activity. If activity was not attempted, code reason: 7-Patient Refused. 9-Not Applicable-not attempted and the patient did not perform the activity before the current illness, exacerbation or injury. 10-Not Attempted due to Environmental Limitations-(lack of equipment, weather restraints, etc.). 88-Not Attempted due to Medical Conditions or Safety Concerns. Roll Left to Right (QC): 6 Sit to Lying (QC): 3 Sit to Stand (QC): 1 Chair/Ftw-ac-Zqiwa Xfer(QC): 88 Car Transfer (QC): 88 Gait Training Does the Patient Walk?: No and Walking Goal IS indicated Walk 10 feet (QC): 88 Walk 50 ft with 2 Turns(QC): 88 Walk 150 ft (QC): 88 Walking 10ft/uneven surface-QC: 88 Gait Assistive Device: FWW Wheelchair Training Does the Pt Use a Wheelchair?: No Wheel 50 ft with 2 turns (QC): 9 Wheel 150 ft (QC): 9 Type of Wheelchair: N/A Stair Training 1 Step (curb) (QC): 88 4 Steps (QC): 88 12 Steps (QC): 88 Balance Picking up an Object (QC): 88 ADL-Treatment Eating (QC): 4 (Pt. issued weighted utensils to assist with tremors when feeding self.) Oral Hygiene (QC): 7 Shower/Bathe Self (QC): 88 Upper Body Dressing (QC): 2 (Pt. reports that today was the first day he has h ad street clothing on. Nursing at previous location donned shirt for him.) Lower Body Dressing (QC): 2 On/Off Footwear (QC): 2 Toileting Hygiene (QC): 2 (Pt. 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
--- NOTE | 2020-02-25 10:34 | Individualized Plan of Care ---
Individualized Plan of Care Rehab Nursing IPOC Order Admission Date Feb 24, 2020 at 10:19 Current Orders Orders Admission Order(Inpt,Obs,Sdc) (02/24/20 09:33) Vital Signs: Per Unit Policy ( 08,16,00 (02/24/20 09:33) Allen Alvarado (02/24/20 09:33) Sequential Compression Device Q4H (02/24/20 09:33) Profile Trimmer-Inpt Rehab Con (02/24/20 09:33) Rehab Nursing Orders-Ipoc (02/24/20 09:33) Physical Therapy Rehab Orders (02/24/20 09:33) Occupational Therapy Rehab Ord (02/24/20 09:33) Speech Therapy Rehab Orders (02/24/20 09:33) Cbc With Automated Diff (02/25/20 06:00) Comprehensive Metabolic Panel (02/25/20 06:00) General/Regular (02/24/20 Lunch) Intake & Output ,14, (02/24/20 09:33) Precautions (Aru) (02/24/20 09:33) Rehab-Intensity Of Therapy (02/24/20 09:33) Initiate Admission Nursing Pro .admission (02/24/20 09:33) Alprazolam Tablet (Xanax Tablet) (02/24/20 09:45) Calcium Carbonate Chew Tablet (Antacid C (02/24/20 09:45) Diphenhydramine Tablet (Benadryl Tablet) (02/24/20 09:45) Docusate Sodium Capsule (Colace Capsule) (02/24/20 21:00) Docusate Sodium Capsule (Colace Capsule) (02/24/20 09:45) Bisacodyl Suppository (Dulcolax Supposit (02/24/20 09:45) Lactulose Oral Solution (Enulose Oral So (02/24/20 09:45) Na Phos/Na Biphos Enema (Fleet Enema Chuck (02/24/20 09:45) Guaifenesin/Codeine Syrup (Robitussin Ac (02/24/20 09:45) Loperamide Tablet (Imodium Tablet) (02/24/20 09:45) Melatonin Tablet (Melatonin Tablet) (02/24/20 09:45) Polyethylene Glycol Powder Pkt (Miralax (02/24/20 21:00) Ondansetron Oral Dissolve Tab (Zofran (02/24/20 09:45) Senna S Tablet (Senokot S Tablet) (02/24/20 21:00) Sequential Compression Device Q4H (02/24/20 09:33) Initiate Admission Nursing Pro .admission (02/24/20 09:33) Admission Arrival Bed Request (02/24/20 10:18) Acetaminophen Tablet/Caplet (Tylenol T (02/24/20 11:15) Enoxaparin Injection (Lovenox Injection) (02/25/20 09:00) Famotidine Tablet (Pepcid Tablet) (02/25/20 09:00) Albuterol/Ipra Inhalation Soln (Duoneb I (02/24/20 11:15) Prednisone Tablet (Deltasone Tablet) (02/25/20 09:00) Metoprolol Tartrate (Ir) Tab (Lopressor (02/24/20 21:00) Patient Visit (02/24/20 ) Pt Eval High Complexity (02/24/20 ) Functional Activities, Ea 15 (02/24/20 ) Pharmacy To Dose (Pharmacy To Dose) (02/24/20 13:00) Patient Visit (02/24/20 ) Exercise Therap, Ea 15 Min (02/24/20 ) Patient Visit (02/24/20 ) Speech Sound Lang Comp (02/24/20 ) Patient Visit (02/25/20 ) Functional Activities, Ea 15 (02/25/20 ) Exercise Therap, Ea 15 Min (02/25/20 ) Patient Visit (02/25/20 ) Exercise Therap, Ea 15 Min (02/25/20 ) Rehab Nursing Orders: Ongoing Assess. of Cognitive Status, Ongoing Assess. of Function Status, Bladder Management, Bladder Scan, Bladder Training, Bowel Management, Bowel Training, Disease Management & Educaiton, DVT Prophylaxis, Fall Prevention, Fluid/Electrolyte/Nutrition Mgmt, Infection Prevention, Medication Management & Education, Management of Risks & Complications, Management of Skin Intergrity, Nutrition Management, Pain Management, Patient/Family Support, Safety Management Intensity of Therapy to be met Patient to be seen: Min.3h per day/5 of 7d PT IPOC Problem List: Activity Tolerance, Functional Strength Treatment Plan: Continue Plan of Care Bed Mobility, Education, Functional Activity Day, Functional Strength, Group Therapy, Gait, Safety, Therapeutic Exercise, Transfers Treatment Duration: Mar 16, 2020 Frequency: Modified Program (IRF) Estimated Hrs Per Day: Other OT IPOC Problems: Decreased Activ Tolerance, Decreased UE Strength, Dependent Transfers, Impaired Bed Mobility, Impaired Funct Balance, Impaired I ADL's, Impaired Self-Care Skills, Restricted Funct UE ROM OT Treatment, Training and Edu: Yes Plan of Care: ADL Retraining, Caregiver Training, Concurrent Therapy, Functional Mobility, Group Exercise/Act as Ind, UE Funct Exercise/Act, UE Neuromus Re-Ed/Coord Treatment Duration: Mar 09, 2020 Frequency: Modified Program (IRF) Estimated Hrs Per Day: [address] IPOC Speech Therapy Treatment Plan: Discontinue ST Treatment Duration: Feb 24, 2020 Frequency: 1 time per week Estimated Hrs Per Day: .25 hour per day Profile Trimmer/Case Mgmt Profile Trimmer/Case Managemen: Discharge Planning Dietitian/Cable Ferryboat Operator Dietitian/Cable Ferryboat Operator to monitor nutritional status and make changes and/or recommendations as needed and work with speech pathology on dietary upgrades as the occur. Physician IPOC Medical Issues being managed closely and that require the 24 hour availability of a physician: Recent catastrophic critical illness with COVID and subsequent lengthy ventilator status will be at high risk for decompensation Medical Issues: Bowel/Bladder Function, DVT Prophylaxis, Falls Precautions, Fluid/Electrolyte/Nutrition Balance, Infection Protection, Pain Management, Swallowing Precautions Brief Synthesis of Preadmission Screen, Post-Admission Evaluation, and Therapy Evaluations: PT OT will focus on regaining strength to severe myopathic muscles of all extremities and will help increase ADL independence Medical Prognosis: Good Anticipated Length of Stay: 10 days REGIS MAGALLON DO Feb 25, 2020 10:33
--- NOTE | 2020-02-25 13:17 | Occupational Ther Daily Note ---
OT Current Status-Daily Note Subjective Pt agreed to PT/OT cotreat. After activity, pt reminded to breath in through nose and out through mouth, as well as taking deep breaths. Mental Status/Objective Patient Orientation: Person, Place, Time, Situation ADL-Treatment Therapy Code Descriptions/Definitions Functional [place] Measure: 0=Not Assessed/NA 4=Minimal Assistance 1=Total Assistance 5=Supervision or Setup 2=Maximal Assistance 6=Modified [place] 3=Moderate Assistance 7=Complete IndependenceSCALE: Activities may be completed with or without assistive devices. 1-Msihbrikka-vfqlvls completes the activity by him/herself with no assistance from a helper. 5-Set-up or Clean-up Assistance-helper sets up or cleans up; patient completes activity. [place] assists only prior to or following the activity. 4-Supervision or Touching Assistance-helper provides verbal cues and/or touching/steadying and/or contact guard assistance as patient completes activi ty. Assistance may be provided throughout the activity or intermittently. 3-Partial/Moderate Assistance-helper does LESS THAN HALF the effort. [place] lifts, holds or supports trunk or limbs, but provides less than half the effort. 2-Substantial/Maximal Assistance-helper does MORE THAN HALF the effort. [place] lifts or holds trunk or limbs and provides more than half the effort. 7-Bmwissadi-cpwxjs does ALL the effort. Patient does none of the effort to complete the activity. Or, the assistance of 2 or more helpers is required for the patient to complete the activity. If activity was not attempted, code reason: 7-Patient Refused. 9-Not Applicable-not attempted and the patient did not perform the activity before the current illness, exacerbation or injury. 10-Not Attempted due to Environmental Limitations-(lack of equipment, weather restraints, etc.). 88-Not Attempted due to Medical Conditions or Safety Concerns. Oral Hygiene (QC): 4 (SBA, pt required assistance opening package prior to task.) Shower/Bathe Self (QC): 1 (pt able to wash trunk, BUE, and thighs. Assistance x2 needed for standing while washing buttocks.) Upper Body Dressing (QC): 2 (MaxA, pt able to thread arms through shirt, assist managing up past elbow. Assist threading overhead and adjustment down trunk) Lower Body Dressing (QC): 1 (Assist x2 in stand for pant hike. Pt required assistance threading BLEs into pants.) On/Off Footwear: 1 (Pt attempted to doff socks but unsuccessful, assist to doff and don bilateral gripper socks.) Other Treatment OT/PT cotreat due to skill of 2 clinicians required which a rehabilitation team lead could not perform in order to coordinate UE/LEs with tasks due to pt's limitations in strength, endurance, functional mobility, and transfers. OT focused on ADLS, UE placement, cues for sequencing and safety while PT focused on LE placement, gross overall movements, transfers and mobility. Pt transferred supine to sit EOB. Then completed sponge bath adn dressing. Assistance needed to wash feet and apply lotion to pt skin. Pt stood with assistance x2 for washing buttocks and doff pants due to decreased standing balance. OT assisted with threading unde rwear and pants. Pt stood again for pants hike. Pt brushed teeth at EOB, assist to open toothbrush packet. Pt transferred from bed to recliner using FWW. In recliner, pt participated in UE exercises of active R shoulder flexion and passive L shoulder flexion. Pt was left in recliner with call light in reach and all needs met. Education OT Patient Education: Correct positioning, Energy conservation, Modified ADL techniques, Progress toward Goal/Update tx plan, Purpose of tx/functional activities, Transfer techniques Teaching Recipient: Patient Teaching Methods: Demonstration, Discussion Response to Teaching: Verbalize Understanding, Return Demonstration OT Short Term Goals Short Term Goals Time Frame: Mar 09, 2020 Eatin Oral hygiene: 5 Toileting hygiene: 4 Shower/bathe self: 4 Upper body dressin Lower body dressin Putting on/taking off footwear: 4 OT Medication Technician Goals Medication Technician Goals Time Frame: Mar 23, 2020 Eating (QC): 6 Oral Hygiene (QC): 6 Toileting Hygiene (QC): 6 Shower/Bathe Self (QC): 6 Upper Body Dressing (QC): 6 Lower Body Dressing (QC): 6 On/Off Footwear (QC): 6 Additional Goals: 1-Demonstrate ADL Tasks, 2-Verbalize Understanding, 3- ImproveStrength/Day 1=Demonstrate adherence to instructed precautions during ADL tasks. 2=Patient will verbalize/demonstrate understanding of assistive devices/modifications for ADL. 3=Patient will improve strength/tolerance for activity to enable patient to perform ADL's. OT Education/Plan Problem List/Assessment Assessment: Decreased Activ Tolerance, Decreased UE Strength, Impaired Bed Mobility, Impaired Coordination, Impaired Funct Balance, Impaired I ADL's, Impaired Self-Care Skills, Restricted Funct UE ROM Discharge Recommendations Plan/Recommendations: Continue POC Treatment Plan/Plan of Care Patient would benefit from OT for education, treatment and training to promote independence in ADL's, mobility, safety and/or upper extremity function for AD L's. Plan of Care: ADL Retraining, Caregiver Training, Concurrent Therapy, Functional Mobility, Group Exercise/Act as Ind, UE Funct Exercise/Act, UE Neuromus Re-Ed/Coord Treatment Duration: Mar 09, 2020 Frequency: Modified Program (IRF) Estimated Hrs Per Day: 1 hour per day Agreement: Yes Rehab Potential: Good Time/GCodes Start Time: 10:00 Stop Time: 11:00 Total Time Billed (hr/min): 60 Billed Treatment Time 1, ADL 3 (45'), EX (15') FLOYD SPAIN OT Feb 25, 2020 13:17
--- NOTE | 2020-02-25 14:58 | Physical Therapy Daily Note ---
PT Daily Note-Current Subjective Pt presents supine in bed upon arrival to room, agreeable to supine LE exercises at this time. No reports of pain. Appearance Pt supine in bed upon arrival to room, call light and tray within reach, All needs met at this time. Mental Status Patient Orientation: Person, Place, Situation Transfers SCALE: Activities may be completed with or without assistive devices. 1-Jnkcnpvrmr-pfqnded completes the activity by him/herself with no assistance from a helper. 5-Set-up or Clean-up Assistance-helper sets up or cleans up; patient completes activity. [place] assists only prior to or following the activity. 4-Supervision or Touching Assistance-helper provides verbal cues and/or touching/steadying and/or contact guard assistance as patient completes activity. Assistance may be provided throughout the activity or intermittently. 3-Partial/Moderate Assistance-helper does LESS THAN HALF the effort. [place] lifts, holds or supports trunk or limbs, but provides less than half the effort. 2-Substantial/Maximal Assistance-helper does MORE THAN HALF the effort. [place] lifts or holds trunk or limbs and provides more than half the effort. 4-Hhjsckmgd-hgzhry does ALL the effort. Patient does none of the effort to complete the activity. Or, the assistance of 2 or more helpers is required for the patient to complete the activity. If activity was not attempted, code reason: 7-Patient Refused. 9-Not Applicable-not attempted and the patient did not perform the activity before the current illness, exacerbation or injury. 10-Not Attempted due to Environmental Limitations-(lack of equipment, weather restraints, etc.). 88-Not Attempted due to Medical Conditions or Safety Concerns. Weight Bearing Right Lower Extremity: Right Full Weight Bearing Left Lower Extremity: Left Full Weight Bearing Exercises Supine Ex: Bridging, Ankle pumps, Quad Set, Heel Slides, Hip abd/add Supine Reps: 20 Treatments Supine LE strengthening Assessment Current Status: Fair Progress Pt tolerated LE strengthening exercises well, no SOB noted. Pt RLE with increased weakness compared to LLE this date. PT Short Term Goals Short Term Goals Time Frame: Mar 09, 2020 Roll Left & Right: 6 Sit to lyin Lying to sitting on side of be: 6 Sit to stand: 6 Chair/srp-sy-unxmq transfer: 6 PT Mcfp Goals Mcfp Goals PT Mcfp Goals Time Frame: Mar 16, 2020 Roll Left & Right (QC): 6 Sit to Lying (QC): 6 Lying-Sitting on Side/Bed(QC): 6 Sit to Stand (QC): 6 Chair/Vja-kj-Fhlvc Xfer(QC): 6 Toilet Transfer (QC): 6 Car Transfer (QC): 5 Does the Patient Walk: No and Walking Goal IS indicated Walk 10 feet (QC): 6 Walk 50ft with 2 Turns (QC): 6 Walk 150 ft (QC): 6 Walking 10ft on Uneven Surface: 6 1 Step (curb) (QC): 6 4 Steps (QC): 5 12 Steps (QC): 5 Picking up an Object (QC): 6 Does the Pt use WC or Scooter?: No Wheel 50 feet with 2 turns (QC: 9 Type: N/A Wheel 150 feet: 9 Type: N/A PT Plan Problem List Problem List: Activity Tolerance, Functional Strength, Safety, Balance, Gait, Transfer, Bed Mobility, ROM Treatment/Plan Treatment Plan: Continue Plan of Care Treatment Plan: Bed Mobility, Education, Functional Activity Day, Functional Strength, Group Therapy, Gait, Safety, Therapeutic Exercise, Transfers Treatment Duration: Mar 16, 2020 Frequency: Modified Program (IRF) Estimated Hrs Per Day: Other Patient and/or Family Agrees t: Yes Time/GCodes Time In: 1405 Time Out: 1435 Total Billed Treatment Time: 30 Total Billed Treatment 1 visit EX (30') JULISSA MURPHY PT Feb 25, 2020 14:58
--- NOTE | 2020-02-25 15:18 | Physical Therapy Daily Note ---
PT Daily Note-Current Subjective Agreeable to PT. Expresses that he really wants to increase his exercises. Notes he needs frequent rest breaks. Mental Status Patient Orientation: Person, Place, Time, Situation Transfers SCALE: Activities may be completed with or without assistive devices. 3-Hubqsqgiuv-bcdhohj completes the activity by him/herself with no assistance from a helper. 5-Set-up or Clean-up Assistance-helper sets up or cleans up; patient completes activity. [place] assists only prior to or following the activity. 4-Supervision or Touching Assistance-helper provides verbal cues and/or touching/steadying and/or contact guard assistance as patient completes activity. Assistance may be provided throughout the activity or intermittently. 3-Partial/Moderate Assistance-helper does LESS THAN HALF the effort. [place] lifts, holds or supports trunk or limbs, but provides less than half the effort. 2-Substantial/Maximal Assistance-helper does MORE THAN HALF the effort. [place] lifts or holds trunk or limbs and provides more than half the effort. 0-Xxipdshok-zqdvmd does ALL the effort. Patient does none of the effort to complete the activity. Or, the assistance of 2 or more helpers is required for the patient to complete the activity. If activity was not attempted, code reason: 7-Patient Refused. 9-Not Applicable-not attempted and the patient did not perform the activity before the current illness, exacerbation or injury. 10-Not Attempted due to Environmental Limitations-(lack of equipment, weather restraints, etc.). 88-Not Attempted due to Medical Conditions or Safety Concerns. Roll Left & Right (QC): 3 Lying to Sitting/Side of Bed(Q: 3 (min assist to sit up and takes extra effort. Skilled cues to sequence.) Sit to Stand (QC): 2 (mod assist to come to a stand and mod assist initially to gain balacne with skilled cues for upright posture. ) Chair/Kiw-kx-Vddsn Xfer(QC): 3 (min assist with assist for the walker and skilled cues to sequence. ) Weight Bearing Right Lower Extremity: Right Full Weight Bearing Left Lower Extremity: Left Full Weight Bearing Exercises Seated Therapy Exercises: Ankle pumps, Long arc quads, Hip flexion, Hip abd/add Seated Reps: 10 (LE strength for transfer progression) Treatments Co treat with OT, as pt requires the skill of 2 clinicians to successfully complete ADL tasks and perform core strength, seated balance, transitional sit to stand and transfers. OT addressed ADL care as PT addressed the balance, si tting activity and standing/transfers. Assessment Current Status: Good Progress Tires quickly and requires rest breaks. Poor quad control in standing with limited functional activity [place]. Pt very motivated and pushes himself. PT Short Term Goals Short Term Goals Time Frame: Mar 09, 2020 Roll Left & Right: 6 Sit to lyin Lying to sitting on side of be: 6 Sit to stand: 6 Chair/pfz-vh-cuexe transfer: 6 PT Retirement Goals Seasonal Sales Associate Goals PT Retirement Goals Time Frame: Mar 16, 2020 Roll Left & Right (QC): 6 Sit to Lying (QC): 6 Lying-Sitting on Side/Bed(QC): 6 Sit to Stand (QC): 6 Chair/Eet-nl-Qytkv Xfer(QC): 6 Toilet Transfer (QC): 6 Car Transfer (QC): 5 Does the Patient Walk: No and Walking Goal IS indicated Walk 10 feet (QC): 6 Walk 50ft with 2 Turns (QC): 6 Walk 150 ft (QC): 6 Walking 10ft on Uneven Surface: 6 1 Step (curb) (QC): 6 4 Steps (QC): 5 12 Steps (QC): 5 Picking up an Object (QC): 6 Does the Pt use WC or Scooter?: No Wheel 50 feet with 2 turns (QC: 9 Type: N/A Wheel 150 feet: 9 Type: N/A PT Plan Problem List Problem List: Activity Tolerance, Functional Strength, Safety, Balance, Gait, Transfer, Bed Mobility Treatment/Plan Treatment Plan: Continue Plan of Care Treatment Plan: Bed Mobility, Education, Functional Activity Day, Functional Strength, Group Therapy, Gait, Safety, Therapeutic Exercise, Transfers Treatment Duration: Mar 16, 2020 Frequency: Modified Program (IRF) Estimated Hrs Per Day: Other Patient and/or Family Agrees t: Yes Safety Risks/Education Patient Education: Transfer Techniques, Safety Issues Teaching Recipient: Patient Teaching Methods: Demonstration, Discussion Response to Teaching: Reinforcement Needed Discharge Recommendations Therapy Discharge Recommendati: Post Acute PT Time/GCodes Time In: 1000 Time Out: 1100 Total Billed Treatment Time: 60 Total Billed Treatment visit FA 45 EX 15 Co treat 60 MILES MEZA PT Feb 25, 2020 15:18
--- NOTE | 2020-02-25 15:58 | NUR ---
CM/SS ADMISSION Patient was admitted to ARU 02/24/20 from [facility] for Critical Illness Myopathy. Patient was Covid positive 12/24/19 and was treating at home when he progressively worsened. He went to [facility] ED with O2 sats 57% on 5L. His care escalated from BiPAP to intubation and because wean was unsuccessful he had trach and PEG was placed. He transferred to [facility] 01/29/20 with further complications during that stay including bleed from tracheostomy stoma and PNA. 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 His SO/Amaris Waite resides with him and her parents live in the same block. Patient shared he was quite an athlete historically and could run a 5 min. mile. He is very thankful for his recovery from this devastating journey with Covid at 8 weeks now. PCP: Dr. Tadeo Bhakta [facility] [address] [place] [address] PH: [phone] PHARMACY: [facility] INSURANCE: [employer] DME: None. His family/friends are putting in grab bars in the bathroom and adding hand rails to the deck entrance. Patient indicates he has 3 steps into his home. BARRIERS TO DISCHARGE PLANNING. Nothing monumental noted. Patient has commercial insurance which will likely require in-network services/equipment. Patient very determined to ambulate and not require wheelchair. CONTACTS: Amaris Waite, Significant Other [address] [place] [address] Patient has 4 children and has grandchildren who call him "Granddad". Patient understands the purpose and process of the weekly patient care conference and that his first review is Monday, March 02, 2020.
[2020-02-25 18:00] VITALS: BP 127/83
--- NOTE | 2020-02-25 18:10 | NUR ---
"RD ASSESSMENT PMHx: pneumonia; COVID-19 PT INTERACTION: Pt was awake and pleasant during consult for MST score. Pt states current appetite is good. Note avg PO intake 100% x1d, per chart review. Pt states following a regular diet at home, and has no issues with chewing/swallowing food. Pt states no recent issues with n/v/c/d, and that his last BM was 02/22. Note pt currently on bowel regimen of colace BID, senna BID, and miralax BID, per chart review. Pt states recent 36-40# wt loss, but did not know timeframe. Note unable to determine recent wt hx, per chart review. Upon visual assessment, pt appears to be adequately nourished with no visible signs of muscle/fat wasting, and a BMI of 26.0 (Normal BMI for age). Given visual assessment, PO intake, and wt hx, pt does not meet criteria for malnutrition per ASPEN guidelines. Est. kcal needs: [id number] kcal | 25-30 kcal/kg Est. Pro needs: 90-108 g Pro | 1.0-1.2 g Pro/kg PES STATEMENT: Given current PO intake, no nutrition diagnosis at this time (NO-1.1). INTERVENTION: Continue with current diet order of Regular diet. Will continue to follow and reassess as pt needs, intake, and status change. Caitlyn LANIER MS RD LD [phone] cell"
[2020-02-25 20:22] VITALS: BP 120/80
[2020-02-26 06:07] VITALS: BP 128/72
[2020-02-26] MEDS: predniSONE 20 MG TAB PO SCH (09:18)
[2020-02-26] MEDS: FAMOTIDINE 20 MG (PEPCID) TABLET PO SCH (09:18)
[2020-02-26] MEDS: meTOprolol TARTRATE 50 MG (LOPRESSOR) TAB PO SCH ×2 (09:19→20:18)
[2020-02-26] MEDS: DOCUSATE SODIUM 100 MG (COLACE) CAP PO SCH ×2 (09:21→20:11)
[2020-02-26] MEDS: SENNA W/DOCUSATE (SENOKOT S) TABLET PO SCH ×2 (09:21→20:11)
[2020-02-26] MEDS: polyethylene glycoL POWDER 17 GM (MIRALAX) PACK PO SCH ×2 (09:21→20:11)
[2020-02-26] MEDS: ENOXAPARIN 40 MG/0.4 ML (LOVENOX) SYR SQ SCH (09:21)
--- NOTE | 2020-02-26 09:52 | PM&R Progress Note ---
Subjective HPI/CC On Admission Date Seen by Provider: Feb 26, 2020 Time Seen by Provider: 10:30 Subjective/Events-last exam 02/26/20: Pastoral care notified Family members 3 of them have within 2 months Tremors noted Heels sore PEG 01/26 placed 02/25/20: Wants PEG tube removed History of placement 01/27/20 No issues Up in chair today Tachycardia noted and on BB NO pain Review of Systems General: Fatigue, Malaise Objective Exam Vital Signs Vital Signs Date Time Temp Pulse Resp B/P (MAP) Pulse Ox O2 Delivery O2 Flow Rate FiO2 02/26/20 16:20 37.0 93 16 115/72 (86) 92 02/26/20 08:36 Room Air Capillary Refill : General Appearance: No Apparent Distress, WD/WN, Anxious, Thin HEENT: PERRL/EOMI, Normal ENT Inspection, Pharynx Normal Neck: Full Range of Motion, Normal Inspection, Non Tender, Supple, Carotid Bruit Respiratory: Chest Non Tender, Lungs Clear, No Accessory Muscle Use, No Respiratory Distress, Decreased Breath Sounds Cardiovascular: Regular Rate, Rhythm, No Edema, No Gallop, No JVD, No Murmur, Normal Peripheral Pulses Gastrointestinal: Normal Bowel Sounds, No Organomegaly, No Pulsatile Mass, Non Tender, Soft Back: Normal Inspection, No CVA Tenderness, No Vertebral Tenderness Extremity: Normal Capillary Refill, Normal Inspection, Normal Range of Motion, Non Tender, No Calf Tenderness, No Pedal Edema Neurologic/Psychiatric: Alert, Oriented x3, No Motor/Sensory Deficits, Abnormal Gait, Depressed Affect, Motor Weakness (generalized all extremities) Skin: Normal Color, Warm/Dry Lymphatic: No Adenopathy Results/Procedures Lab Patient resulted labs reviewed. FIM Transfers Therapy Code Descriptions/Definitions Functional [place] Measure: 0=Not Assessed/NA 4=Minimal Assistance 1=Total Assistance 5=Supervision or Setup 2=Maximal Assistance 6=Modified [place] 3=Moderate Assistance 7=Complete IndependenceSCALE: Activities may be completed with or without assistive devices. 2-Oizbdmkyyy-ywdicsg completes the activity by him/herself with no assistance from a helper. 5-Set-up or Clean-up Assistance-helper sets up or cleans up; patient completes activity. [place] assists only prior to or following the activity. 4-Supervision or Touching Assistance-helper provides verbal cues and/or touching/steadying and/or contact guard assistance as patient completes activity. Assistance may be provided throughout the activity or intermittently. 3-Partial/Moderate Assistance-helper does LESS THAN HALF the effort. [place] lifts, holds or supports trunk or limbs, but provides less than half the effort. 2-Substantial/Maximal Assistance-helper does MORE THAN HALF the effort. [place] lifts or holds trunk or limbs and provides more than half the effort. 6-Gpoqsszsz-zbhleb does ALL the effort. Patient does none of the effort to complete the activity. Or, the assistance of 2 or more helpers is required for the patient to complete the activity. If activity was not attempted, code reason: 7-Patient Refused. 9-Not Applicable-not attempted and the patient did not perform the activity before the current illness, exacerbation or injury. 10-Not Attempted due to Environmental Limitations-(lack of equipment, weather restraints, etc.). 88-Not Attempted due to Medical Conditions or Safety Concerns. Roll Left to Right (QC): 3 Sit to Lying (QC): 3 Sit to Stand (QC): 2 (mod assist to come to a stand and mod assist initially to gain balacne with skilled cues for upright posture. ) Chair/Pyo-ef-Gyxvw Xfer(QC): 3 (min assist with assist for the walker and skilled cues to sequence. ) Car Transfer (QC): 88 Gait Training Does the Patient Walk?: No and Walking Goal IS indicated Walk 10 feet (QC): 88 Walk 50 ft with 2 Turns(QC): 88 Walk 150 ft (QC): 88 Walking 10ft/uneven surface-QC: 88 Gait Assistive Device: FWW Wheelchair Training Does the Pt Use a Wheelchair?: No Wheel 50 ft with 2 turns (QC): 9 Wheel 150 ft (QC): 9 Type of Wheelchair: N/A Stair Training 1 Step (curb) (QC): 88 4 Steps (QC): 88 12 Steps (QC): 88 Balance Picking up an Object (QC): 88 ADL-Treatment Eating (QC): 4 (Pt. issued weighted utensils to assist with tremors when feeding self.) Oral Hygiene (QC): 4 (SBA, pt required assistance opening package prior to task.) Shower/Bathe Self (QC): 1 (pt able to wash trunk, BUE, and thighs. Assistance x2 needed for standing while washing buttocks.) Upper Body Dressing (QC): 2 (MaxA, pt able to thread arms through shirt, assist managing up past elbow. Assist threading overhead and adjustment down trunk) Lower Body Dressing (QC): 1 (Assist x2 in stand for pant hike. Pt required assistance threading BLEs into pants.) On/Off Footwear (QC): 1 (Pt attempted to doff socks but unsuccessful, assist to doff and don bilateral gripper socks.) Toileting Hygiene (QC): 2 (Pt. reports that he requires max assist for toileting tasks.) Assessment/Plan Assessment and Plan Assess & Plan/Chief Complaint Assessment: 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 Anemia s/p trach now DC Steroid maintenance Plan: IRF protocol Increase ADL independence Ambulate O2 monitoring 02/25/20: PEG tube when able to DC will DC Monitor BP and HR Monitor O2 02/26/20: Supportive care Monitor closely (1) Myopathy (2) History of tracheostomy (3) Frailty (4) Cough (5) Anemia (6) COVID-19 REGIS MAGALLON DO Feb 26, 2020 09:52
--- NOTE | 2020-02-26 11:46 | Occupational Ther Daily Note ---
OT Current Status-Daily Note Subjective Pt agreed to OT tx. Pt mentions not wanting to wear a gait belt because of pulling on feeding tube. OT reassures that the gait belt is needed for his safety and that she will keep the gait belt under the tube. Mental Status/Objective Patient Orientation: Person, Place, Time, Situation ADL-Treatment Therapy Code Descriptions/Definitions Functional [place] Measure: 0=Not Assessed/NA 4=Minimal Assistance 1=Total Assistance 5=Supervision or Setup 2=Maximal Assistance 6=Modified [place] 3=Moderate Assistance 7=Complete IndependenceSCALE: Activities may be completed with or without assistive devices. 6-Ulfkafhimj-wtnepaa completes the activity by him/herself with no assistance from a helper. 5-Set-up or Clean-up Assistance-helper sets up or cleans up; patient completes activity. [place] assists only prior to or following the activity. 4-Supervision or Touching Assistance-helper provides verbal cues and/or touch ing/steadying and/or contact guard assistance as patient completes activity. Assistance may be provided throughout the activity or intermittently. 3-Partial/Moderate Assistance-helper does LESS THAN HALF the effort. [place] lifts, holds or supports trunk or limbs, but provides less than half the effort. 2-Substantial/Maximal Assistance-helper does MORE THAN HALF the effort. [place] lifts or holds trunk or limbs and provides more than half the effort. 4-Lfojyagmd-epqwgc does ALL the effort. Patient does none of the effort to complete the activity. Or, the assistance of 2 or more helpers is required for the patient to complete the activity. If activity was not attempted, code reason: 7-Patient Refused. 9-Not Applicable-not attempted and the patient did not perform the activity before the current illness, exacerbation or injury. 10-Not Attempted due to Environmental Limitations-(lack of equipment, weather restraints, etc.). 88-Not Attempted due to Medical Conditions or Safety Concerns. Other Treatment Pt sat edge of bed at the beginning of tx. Pt participated in edge of bed UE exercises of the following; PROM BUE shoulder flexion, minimal resistance with theraband for biceps curls, shoulder abduction. Pt transferred from bed to w/c using FWW, min A. Pt attempted to propel self to therapy gym, but due to limited activity endurance, OT took pt in w/c to therapy gym. Pt participated in aretha exercise to increase ROM of B shoulders, x5 mins. Pt participated in minimal resistance putty activity on table to to reduce swelling in L hand, to increase fine motor strength BUEs, and to increase activity tolerance. Pt finished session with table top activity with peg board to increase activity tolerance and hand strength. Pt placed x20 pegs, 1" pegs into foam pegboard, alternating hand. Pt needed frequent rest breaks and reminded to take deep breaths in through nose and out through mouth. Post tx, pt seated in therapy gym with PT, all needs met. Education OT Patient Education: Correct positioning, Energy conservation, Exercise program, Modified ADL techniques, Progress toward Goal/Update tx plan, Purpose of tx/functional activities, Reviewed precautions, Safety issues, Transfer techniques Teaching Recipient: Patient Teaching Methods: Demonstration, Discussion Response to Teaching: Verbalize Understanding OT Short Term Goals Short Term Goals Time Frame: Mar 09, 2020 Eatin Oral hygiene: 5 Toileting hygiene: 4 Shower/bathe self: 4 Upper body dressin Lower body dressin Putting on/taking off footwear: 4 OT Infantry Operations Specialist Goals Fpc Goals Time Frame: Mar 23, 2020 Eating (QC): 6 Oral Hygiene (QC): 6 Toileting Hygiene (QC): 6 Shower/Bathe Self (QC): 6 Upper Body Dressing (QC): 6 Lower Body Dressing (QC): 6 On/Off Footwear (QC): 6 Additional Goals: 1-Demonstrate ADL Tasks, 2-Verbalize Understanding, 3- ImproveStrength/Day 1=Demonstrate adherence to instructed precautions during ADL tasks. 2=Patient will verbalize/demonstrate understanding of assistive devices/modifications for ADL. 3=Patient will improve strength/tolerance for activity to enable patient to perform ADL's. OT Education/Plan Problem List/Assessment Assessment: Decreased Activ Tolerance, Decreased UE Strength, Impaired I ADL's, Impaired Self-Care Skills, Restricted Funct UE ROM Discharge Recommendations Plan/Recommendations: Continue POC Treatment Plan/Plan of Care Patient would benefit from OT for education, treatment and training to promote independence in ADL's, mobility, safety and/or upper extremity function for ADL's. Plan of Care: ADL Retraining, Caregiver Training, Concurrent Therapy, Functional Mobility, Group Exercise/Act as Ind, UE Funct Exercise/Act, UE Neuromus Re-Ed/Coord Treatment Duration: Mar 09, 2020 Frequency: Modified Program (IRF) Estimated Hrs Per Day: 1 hour per day Agreement: Yes Rehab Potential: Good Time/GCodes Start Time: 10:00 Stop Time: 11:00 Total Time Billed (hr/min): 60 Billed Treatment Time 1, EX (20'), FA 3 (40') FLOYD SPAIN OT Feb 26, 2020 11:45
--- NOTE | 2020-02-26 12:00 | Physical Therapy Daily Note ---
PT Daily Note-Current Subjective Pt finished with OT and moved directly into working with PT. Pt eager to begin therapy today. Transfers SCALE: Activities may be completed with or without assistive devices. 9-Salsbxyjzv-yqqfdkx completes the activity by him/herself with no assistance from a helper. 5-Set-up or Clean-up Assistance-helper sets up or cleans up; patient completes activity. [place] assists only prior to or following the activity. 4-Supervision or Touching Assistance-helper provides verbal cues and/or touching/steadying and/or contact guard assistance as patient completes activity. Assistance may be provided throughout the activity or intermittently. 3-Partial/Moderate Assistance-helper does LESS THAN HALF the effort. [place] lifts, holds or supports trunk or limbs, but provides less than half the effort. 2-Substantial/Maximal Assistance-helper does MORE THAN HALF the effort. [place] lifts or holds trunk or limbs and provides more than half the effort. 4-Lmgplgqbi-vlhbut does ALL the effort. Patient does none of the effort to complete the activity. Or, the assistance of 2 or more helpers is required for the patient to complete the activity. If activity was not attempted, code reason: 7-Patient Refused. 9-Not Applicable-not attempted and the patient did not perform the activity before the current illness, exacerbation or injury. 10-Not Attempted due to Environmental Limitations-(lack of equipment, weather restraints, etc.). 88-Not Attempted due to Medical Conditions or Safety Concerns. Weight Bearing Right Lower Extremity: Right Full Weight Bearing Left Lower Extremity: Left Full Weight Bearing Gait Training Does the Patient Walk?: Yes Distance: 3ft Gait Persons Needed: 1 Gait Assistive Device: FWW max assist for ambulation due to (B) LE weakness. Wheelchair Training Does the Pt Use a Wheelchair?: Yes Wheel 50 ft with 2 turns (QC): 3 Type of Wheelchair: Manual Exercises Seated Therapy Exercises: LE Protocol Seated Reps: [address] Ex=Flex, Abd, Ext Standing Reps: 10 Max assist during all standing ex, with pt requiring assist under the arms due to feeding tube in abdomen. NuStep Minutes: 10 NuStep Workload: 1 Treatments Sit to stand training to work on glute firing and knee extension upon standing. Assessment Current Status: Fair Progress Pt fatigues rapidly and oxygen monitoring shows a low of 83% after standing for 1 minute, with a return to 93% within 2 minutes. Able to maintain a 92%-95% saturation during NuStep and supine ex. PT Short Term Goals Short Term Goals Time Frame: Mar 09, 2020 Roll Left & Right: 6 Sit to lyin Lying to sitting on side of be: 6 Sit to stand: 6 Chair/lxg-jc-bzxqj transfer: 6 PT Senior Care Goals Senior Care Goals PT Hand Presser Goals Time Frame: Mar 16, 2020 Roll Left & Right (QC): 6 Sit to Lying (QC): 6 Lying-Sitting on Side/Bed(QC): 6 Sit to Stand (QC): 6 Chair/Rcz-qt-Kyoxx Xfer(QC): 6 Toilet Transfer (QC): 6 Car Transfer (QC): 5 Does the Patient Walk: No and Walking Goal IS indicated Walk 10 feet (QC): 6 Walk 50ft with 2 Turns (QC): 6 Walk 150 ft (QC): 6 Walking 10ft on Uneven Surface: 6 1 Step (curb) (QC): 6 4 Steps (QC): 5 12 Steps (QC): 5 Picking up an Object (QC): 6 Does the Pt use WC or Scooter?: No Wheel 50 feet with 2 turns (QC: 9 Type: N/A Wheel 150 feet: 9 Type: N/A PT Plan Treatment/Plan Treatment Plan: Continue Plan of Care Treatment Plan: Bed Mobility, Education, Functional Activity Day, Functional Strength, Group Therapy, Gait, Safety, Therapeutic Exercise, Transfers Treatment Duration: Mar 16, 2020 Frequency: Modified Program (IRF) Estimated Hrs Per Day: Other Patient and/or Family Agrees t: Yes Time/GCodes Time In: 1102 Time Out: 1202 Total Billed Treatment Time: 60 Total Billed Treatment 1, ex x3 (45), gt (15) MAGI THAKKAR PT Feb 26, 2020 12:00
--- NOTE | 2020-02-26 15:02 | NUR ---
Blueprint Maker responded to referral from physician to assist pt in grief process. he has lost 3 close family members in the past 2 months. Timing for this visit was not the best. Pt had finished therapy and was tired. he preferred to take a nap before the next therapy session. Blueprint Maker will continue to seek opportunities to deepen trusting relationship and facilitate the grief process through reminiscence to the degree pt desires.
[2020-02-26 16:20] VITALS: BP 115/72
--- NOTE | 2020-02-26 16:37 | Physical Therapy Daily Note ---
PT Daily Note-Current Subjective Pt reports significant (B) LE fatigue from the morning therapy. Mental Status Patient Orientation: Person, Place, Time, Situation Transfers SCALE: Activities may be completed with or without assistive devices. 7-Kkaisrrjoi-ngpsmpn completes the activity by him/herself with no assistance from a helper. 5-Set-up or Clean-up Assistance-helper sets up or cleans up; patient completes activity. [place] assists only prior to or following the activity. 4-Supervision or Touching Assistance-helper provides verbal cues and/or touching/steadying and/or contact guard assistance as patient completes activity. Assistance may be provided throughout the activity or intermittently. 3-Partial/Moderate Assistance-helper does LESS THAN HALF the effort. [place] l ifts, holds or supports trunk or limbs, but provides less than half the effort. 2-Substantial/Maximal Assistance-helper does MORE THAN HALF the effort. [place] lifts or holds trunk or limbs and provides more than half the effort. 9-Svivhikkk-pfhvzt does ALL the effort. Patient does none of the effort to complete the activity. Or, the assistance of 2 or more helpers is required for t he patient to complete the activity. If activity was not attempted, code reason: 7-Patient Refused. 9-Not Applicable-not attempted and the patient did not perform the activity before the current illness, exacerbation or injury. 10-Not Attempted due to Environmental Limitations-(lack of equipment, weather restraints, etc.). 88-Not Attempted due to Medical Conditions or Safety Concerns. Roll Left & Right (QC): 5 Weight Bearing Right Lower Extremity: Right Full Weight Bearing Left Lower Extremity: Left Full Weight Bearing Gait Training Does the Patient Walk?: No and Walking Goal IS indicated Exercises Supine Ex: LE Protocol Supine Reps: 20 Performed supine ex with 2# on (R) and 3# on (L). Assessment Current Status: Good Progress Pt has significant (B) quad weakness. Difficulty fully extending the knees for SAQ with and without wts. PT Short Term Goals Short Term Goals Time Frame: Mar 09, 2020 Roll Left & Right: 6 Sit to lyin Lying to sitting on side of be: 6 Sit to stand: 6 Chair/xhq-bh-tlram transfer: 6 PT Mink Rancher Goals Mink Rancher Goals PT Mcc Goals Time Frame: Mar 16, 2020 Roll Left & Right (QC): 6 Sit to Lying (QC): 6 Lying-Sitting on Side/Bed(QC): 6 Sit to Stand (QC): 6 Chair/Scl-zx-Eklkc Xfer(QC): 6 Toilet Transfer (QC): 6 Car Transfer (QC): 5 Does the Patient Walk: No and Walking Goal IS indicated Walk 10 feet (QC): 6 Walk 50ft with 2 Turns (QC): 6 Walk 150 ft (QC): 6 Walking 10ft on Uneven Surface: 6 1 Step (curb) (QC): 6 4 Steps (QC): 5 12 Steps (QC): 5 Picking up an Object (QC): 6 Does the Pt use WC or Scooter?: No Wheel 50 feet with 2 turns (QC: 9 Type: N/A Wheel 150 feet: 9 Type: N/A PT Plan Treatment/Plan Treatment Plan: Continue Plan of Care Treatment Plan: Bed Mobility, Education, Functional Activity Day, Functional Strength, Group Therapy, Gait, Safety, Therapeutic Exercise, Transfers Treatment Duration: Mar 16, 2020 Frequency: Modified Program (IRF) Estimated Hrs Per Day: Other Patient and/or Family Agrees t: Yes Time/GCodes Time In: 1545 Time Out: 1615 Total Billed Treatment Time: 30 Total Billed Treatment 1, ex x2 MAGI THAKKAR PT Feb 26, 2020 16:36
--- NOTE | 2020-02-27 05:16 | PM&R Progress Note ---
Subjective HPI/CC On Admission Date Seen by Provider: Feb 27, 2020 Time Seen by Provider: 08:00 Subjective/Events-last exam 02/27/20: Pastoral care visited him and that was helpful given 3 immediate family members have in the past 1 month Trach and PEG dressing changes Aleven on heels Gaining strength 02/26/20: Pastoral care notified Family members 3 of them have within 2 months Tremors noted Heels sore PEG 01/26 placed 02/25/20: Wants PEG tube removed History of placement 01/27/20 No issues Up in chair today Tachycardia noted and on BB NO pain Review of Systems General: Fatigue, Malaise Neurological: Weakness Objective Exam Vital Signs Vital Signs Date Time Temp Pulse Resp B/P (MAP) Pulse Ox O2 Delivery O2 Flow Rate FiO2 02/28/20 05:45 36.7 96 17 120/77 (91) 92 Room Air Capillary Refill : General Appearance: No Apparent Distress, WD/WN, Anxious, Thin HEENT: PERRL/EOMI, Normal ENT Inspection, Pharynx Normal Neck: Full Range of Motion, Normal Inspection, Non Tender, Supple, Carotid Bruit Respiratory: Chest Non Tender, Lungs Clear, No Accessory Muscle Use, No Respiratory Distress, Decreased Breath Sounds Cardiovascular: Regular Rate, Rhythm, No Edema, No Gallop, No JVD, No Murmur, Normal Peripheral Pulses Gastrointestinal: Normal Bowel Sounds, No Organomegaly, No Pulsatile Mass, Non Tender, Soft Back: Normal Inspection, No CVA Tenderness, No Vertebral Tenderness Extremity: Normal Capillary Refill, Normal Inspection, Normal Range of Motion, Non Tender, No Calf Tenderness, No Pedal Edema Neurologic/Psychiatric: Alert, Oriented x3, No Motor/Sensory Deficits, Abnormal Gait, Depressed Affect, Motor Weakness (generalized all extremities) Skin: Normal Color, Warm/Dry Lymphatic: No Adenopathy Results/Procedures Lab Patient resulted labs reviewed. FIM Transfers Therapy Code Descriptions/Definitions Functional [place] Measure: 0=Not Assessed/NA 4=Minimal Assistance 1=Total Assistance 5=Supervision or Setup 2=Maximal Assistance 6=Modified [place] 3=Moderate Assistance 7=Complete IndependenceSCALE: Activities may be completed with or without assistive devices. 2-Xhnqfoafkr-uvwwhfi completes the activity by him/herself with no assistance from a helper. 5-Set-up or Clean-up Assistance-helper sets up or cleans up; patient completes activity. [place] assists only prior to or following the activity. 4-Supervision or Touching Assistance-helper provides verbal cues and/or touching/steadying and/or contact guard assistance as patient completes activity. Assistance may be provided throughout the activity or intermittently. 3-Partial/Moderate Assistance-helper does LESS THAN HALF the effort. [place] lifts, holds or supports trunk or limbs, but provides less than half the effort. 2-Substantial/Maximal Assistance-helper does MORE THAN HALF the effort. [place] lifts or holds trunk or limbs and provides more than half the effort. 3-Aovghnbdx-lagohn does ALL the effort. Patient does none of the effort to complete the activity. Or, the assistance of 2 or more helpers is required for the patient to complete the activity. If activity was not attempted, code reason: 7-Patient Refused. 9-Not Applicable-not attempted and the patient did not perform the activity before the current illness, exacerbation or injury. 10-Not Attempted due to Environmental Limitations-(lack of equipment, weather restraints, etc.). 88-Not Attempted due to Medical Conditions or Safety Concerns. Roll Left to Right (QC): 5 Sit to Lying (QC): 3 Sit to Stand (QC): 2 (mod assist to come to a stand and mod assist initially to gain balacne with skilled cues for upright posture. ) Chair/Xzr-xg-Hpwrx Xfer(QC): 3 (min assist with assist for the walker and skilled cues to sequence. ) Car Transfer (QC): 88 Gait Training Does the Patient Walk?: No and Walking Goal IS indicated Distance: 3ft Walk 10 feet (QC): 88 Walk 50 ft with 2 Turns(QC): 88 Walk 150 ft (QC): 88 Walking 10ft/uneven surface-QC: 88 Gait Persons Needed: 1 Gait Assistive Device: FWW Wheelchair Training Does the Pt Use a Wheelchair?: Yes Wheel 50 ft with 2 turns (QC): 3 Wheel 150 ft (QC): 9 Type of Wheelchair: Manual Stair Training 1 Step (curb) (QC): 88 4 Steps (QC): 88 12 Steps (QC): 88 Balance Picking up an Object (QC): 88 ADL-Treatment Eating (QC): 4 (Pt. issued weighted utensils to assist with tremors when feeding self.) Oral Hygiene (QC): 4 (SBA, pt required assistance opening package prior to task.) Shower/Bathe Self (QC): 1 (pt able to wash trunk, BUE, and thighs. Assistance x2 needed for standing while washing buttocks.) Upper Body Dressing (QC): 2 (MaxA, pt able to thread arms through shirt, assist managing up past elbow. Assist threading overhead and adjustment down trunk) Lower Body Dressing (QC): 1 (Assist x2 in stand for pant hike. Pt required assistance threading BLEs into pants.) On/Off Footwear (QC): 1 (Pt attempted to doff socks but unsuccessful, assist to doff and don bilateral gripper socks.) Toileting Hygiene (QC): 2 (Pt. reports that he requires max assist for toileting tasks.) Assessment/Plan Assessment and Plan Assess & Plan/Chief Complaint Assessment: 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 Anemia s/p trach now DC Steroid maintenance Plan: IRF protocol Increase ADL independence Ambulate O2 monitoring 02/25/20: PEG tube when able to DC will DC Monitor BP and HR Monitor O2 02/26/20: Supportive care Monitor closely 02/27/20: Monitor closely BP stable Pastoral care visit (1) Myopathy (2) History of tracheostomy (3) Frailty (4) Cough (5) Anemia (6) COVID-19 REGIS MAGALLON DO Feb 27, 2020 05:16
[2020-02-27 06:40] VITALS: BP 120/73
[2020-02-27] MEDS: meTOprolol TARTRATE 50 MG (LOPRESSOR) TAB PO SCH ×2 (09:55→21:29)
[2020-02-27] MEDS: predniSONE 20 MG TAB PO SCH (09:55)
[2020-02-27] MEDS: FAMOTIDINE 20 MG (PEPCID) TABLET PO SCH (09:55)
[2020-02-27] MEDS: ENOXAPARIN 40 MG/0.4 ML (LOVENOX) SYR SQ SCH (09:56)
[2020-02-27] MEDS: polyethylene glycoL POWDER 17 GM (MIRALAX) PACK PO SCH ×2 (10:43→21:30)
[2020-02-27] MEDS: DOCUSATE SODIUM 100 MG (COLACE) CAP PO SCH ×2 (10:43→21:30)
[2020-02-27] MEDS: SENNA W/DOCUSATE (SENOKOT S) TABLET PO SCH ×2 (10:44→21:30)
--- NOTE | 2020-02-27 12:04 | Physical Therapy Daily Note ---
PT Daily Note-Current Subjective Pt in bed upon arrival; agrees to PT. Pain Numeric Pain Scale: 0-No Pain Location: No Pain Reported Mental Status Patient Orientation: Person, Place, Time, Situation Transfers SCALE: Activities may be completed with or without assistive devices. 5-Bfcrfvmdrh-qdcfxik completes the activity by him/herself with no assistance from a helper. 5-Set-up or Clean-up Assistance-helper sets up or cleans up; patient completes activity. [place] assists only prior to or following the activity. 4-Supervision or Touching Assistance-helper provides verbal cues and/or touching/steadying and/or contact guard assistance as patient completes activity. Assistance may be provided throughout the activity or intermittently. 3-Partial/Moderate Assistance-helper does LESS THAN HALF the effort. [place] lifts, holds or supports trunk or limbs, but provides less than half the effort. 2-Substantial/Maximal Assistance-helper does MORE THAN HALF the effort. [place] lifts or holds trunk or limbs and provides more than half the effort. 6-Runtuxxre-outoty does ALL the effort. Patient does none of the effort to complete the activity. Or, the assistance of 2 or more helpers is required for the patient to complete the activity. If activity was not attempted, code reason: 7-Patient Refused. 9-Not Applicable-not attempted and the patient did not perform the activity before the current illness, exacerbation or injury. 10-Not Attempted due to Environmental Limitations-(lack of equipment, weather restraints, etc.). 88-Not Attempted due to Medical Conditions or Safety Concerns. Weight Bearing Right Lower Extremity: Right Full Weight Bearing Left Lower Extremity: Left Full Weight Bearing Exercises Supine Ex: Ankle pumps, Heel Slides, Short Arc Quads, Straight leg raise, Hip abd/add Supine Reps: 10 (x2) Treatments Supine ex completed w/ ankle wts (2lb & 3lb). Pt remains in bed w/ call light and bed side table w/in reach and all needs met, at end of tx. Assessment Current Status: Fair Progress Pt struggles w/ certain supine ex's; needs rest breaks d/t SOB and fatigue. PT Short Term Goals Short Term Goals Time Frame: Mar 09, 2020 Roll Left & Right: 6 Sit to lyin Lying to sitting on side of be: 6 Sit to stand: 6 Chair/ycz-ej-ynltm transfer: 6 PT Nursing Home Goals Nursing Home Goals PT Nursing Home Goals Time Frame: Mar 16, 2020 Roll Left & Right (QC): 6 Sit to Lying (QC): 6 Lying-Sitting on Side/Bed(QC): 6 Sit to Stand (QC): 6 Chair/Xcr-re-Hrqnz Xfer(QC): 6 Toilet Transfer (QC): 6 Car Transfer (QC): 5 Does the Patient Walk: No and Walking Goal IS indicated Walk 10 feet (QC): 6 Walk 50ft with 2 Turns (QC): 6 Walk 150 ft (QC): 6 Walking 10ft on Uneven Surface: 6 1 Step (curb) (QC): 6 4 Steps (QC): 5 12 Steps (QC): 5 Picking up an Object (QC): 6 Does the Pt use WC or Scooter?: No Wheel 50 feet with 2 turns (QC: 9 Type: N/A Wheel 150 feet: 9 Type: N/A PT Plan Problem List Problem List: Activity Tolerance, Functional Strength, Safety, Balance, Gait, Transfer, Bed Mobility, ROM Treatment/Plan Treatment Plan: Continue Plan of Care Treatment Plan: Bed Mobility, Education, Functional Activity Day, Functional Strength, Group Therapy, Gait, Safety, Therapeutic Exercise, Transfers Treatment Duration: Mar 16, 2020 Frequency: Modified Program (IRF) Estimated Hrs Per Day: Other Patient and/or Family Agrees t: Yes Safety Risks/Education Patient Education: Correct Positioning Teaching Recipient: Patient Teaching Methods: Discussion Response to Teaching: Verbalize Understanding Time/GCodes Time In: 1019 Time Out: 1034 Total Billed Treatment Time: 15 Total Billed Treatment 1, EX(15m) TIFFANIE HI EMB[employer]ED SYSTEMS ENGINEER Feb 27, 2020 12:04
[2020-02-27 17:55] VITALS: BP 133/88
[2020-02-28 05:45] VITALS: BP 120/77
--- NOTE | 2020-02-28 08:10 | PM&R Progress Note ---
Subjective HPI/CC On Admission Date Seen by Provider: Feb 28, 2020 Time Seen by Provider: 12:30 Subjective/Events-last exam 02/28/20: Did not sleep well so willing to try Remeron 15mg and Melatonin Motivated Scoliosis noted Ankle weights provided to help strengthening 02/27/20: Pastoral care visited him and that was helpful given 3 immediate family members have in the past 1 month Trach and PEG dressing changes Aleven on heels Gaining strength 02/26/20: Pastoral care notified Family members 3 of them have within 2 months Tremors noted Heels sore PEG 01/26 placed 02/25/20: Wants PEG tube removed History of placement 01/27/20 No issues Up in chair today Tachycardia noted and on BB NO pain Review of Systems Neurological: Weakness, Incoordination Objective Exam Vital Signs Vital Signs Date Time Temp Pulse Resp B/P (MAP) Pulse Ox O2 Delivery O2 Flow Rate FiO2 02/28/20 17:40 36.6 97 16 128/75 (92) 93 Room Air Capillary Refill : General Appearance: No Apparent Distress, WD/WN, Anxious, Thin HEENT: PERRL/EOMI, Normal ENT Inspection, Pharynx Normal Neck: Full Range of Motion, Normal Inspection, Non Tender, Supple, Carotid Bruit Respiratory: Chest Non Tender, Lungs Clear, No Accessory Muscle Use, No Respiratory Distress, Decreased Breath Sounds Cardiovascular: Regular Rate, Rhythm, No Edema, No Gallop, No JVD, No Murmur, Normal Peripheral Pulses Gastrointestinal: Normal Bowel Sounds, No Organomegaly, No Pulsatile Mass, Non Tender, Soft Back: Normal Inspection, No CVA Tenderness, No Vertebral Tenderness Extremity: Normal Capillary Refill, Normal Inspection, Normal Range of Motion, Non Tender, No Calf Tenderness, No Pedal Edema Neurologic/Psychiatric: Alert, Oriented x3, No Motor/Sensory Deficits, Abnormal Gait, Depressed Affect, Motor Weakness (generalized all extremities) Skin: Normal Color, Warm/Dry Lymphatic: No Adenopathy Results/Procedures Lab Patient resulted labs reviewed. FIM Transfers Therapy Code Descriptions/Definitions Functional [place] Measure: 0=Not Assessed/NA 4=Minimal Assistance 1=Total Assistance 5=Supervision or Setup 2=Maximal Assistance 6=Modified [place] 3=Moderate Assistance 7=Complete IndependenceSCALE: Activities may be completed with or without assistive devices. 8-Mtomzsceas-raceodp completes the activity by him/herself with no assistance from a helper. 5-Set-up or Clean-up Assistance-helper sets up or cleans up; patient completes activity. [place] assists only prior to or following the activity. 4-Supervision or Touching Assistance-helper provides verbal cues and/or touching/steadying and/or contact guard assistance as patient completes activity. Assistance may be provided throughout the activity or intermittently. 3-Partial/Moderate Assistance-helper does LESS THAN HALF the effort. [place] lifts, holds or supports trunk or limbs, but provides less than half the effort. 2-Substantial/Maximal Assistance-helper does MORE THAN HALF the effort. [place] lifts or holds trunk or limbs and provides more than half the effort. 5-Wcbjzopes-fbjcwz does ALL the effort. Patient does none of the effort to complete the activity. Or, the assistance of 2 or more helpers is required for the patient to complete the activity. If activity was not attempted, code reason: 7-Patient Refused. 9-Not Applicable-not attempted and the patient did not perform the activity before the current illness, exacerbation or injury. 10-Not Attempted due to Environmental Limitations-(lack of equipment, weather restraints, etc.). 88-Not Attempted due to Medical Conditions or Safety Concerns. Roll Left to Right (QC): 5 Sit to Lying (QC): 3 Sit to Stand (QC): 2 (mod assist to come to a stand and mod assist initially to gain balacne with skilled cues for upright posture. ) Chair/Cli-pm-Msobz Xfer(QC): 3 (min assist with assist for the walker and skilled cues to sequence. ) Car Transfer (QC): 88 Gait Training Does the Patient Walk?: No and Walking Goal IS indicated Distance: 3ft Walk 10 feet (QC): 88 Walk 50 ft with 2 Turns(QC): 88 Walk 150 ft (QC): 88 Walking 10ft/uneven surface-QC: 88 Gait Persons Needed: 1 Gait Assistive Device: FWW Wheelchair Training Does the Pt Use a Wheelchair?: Yes Wheel 50 ft with 2 turns (QC): 3 Wheel 150 ft (QC): 9 Type of Wheelchair: Manual Stair Training 1 Step (curb) (QC): 88 4 Steps (QC): 88 12 Steps (QC): 88 Balance Picking up an Object (QC): 88 ADL-Treatment Eating (QC): 4 (Pt. issued weighted utensils to assist with tremors when feeding self.) Oral Hygiene (QC): 4 (SBA, pt required assistance opening package prior to task.) Shower/Bathe Self (QC): 1 (pt able to wash trunk, BUE, and thighs. Assistance x2 needed for standing while washing buttocks.) Upper Body Dressing (QC): 2 (MaxA, pt able to thread arms through shirt, assist managing up past elbow. Assist threading overhead and adjustment down trunk) Lower Body Dressing (QC): 1 (Assist x2 in stand for pant hike. Pt required assistance threading BLEs into pants.) On/Off Footwear (QC): 1 (Pt attempted to doff socks but unsuccessful, assist to doff and don bilateral gripper socks.) Toileting Hygiene (QC): 2 (Pt. reports that he requires max assist for toileting tasks.) Assessment/Plan Assessment and Plan Assess & Plan/Chief Complaint Assessment: 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 Anemia s/p trach now DC Steroid maintenance Plan: IRF protocol Increase ADL independence Ambulate O2 monitoring 02/25/20: PEG tube when able to DC will DC Monitor BP and HR Monitor O2 02/26/20: Supportive care Monitor closely 02/27/20: Monitor closely BP stable Pastoral care visit 02/28/20: Insomnia treatment Monitor closely Pain management (1) Myopathy (2) History of tracheostomy (3) Frailty (4) Cough (5) Anemia (6) COVID-19 REGIS MAGALLON DO Feb 28, 2020 08:10
[2020-02-28] MEDS: FAMOTIDINE 20 MG (PEPCID) TABLET PO SCH (08:31)
[2020-02-28] MEDS: meTOprolol TARTRATE 50 MG (LOPRESSOR) TAB PO SCH ×2 (08:32→21:09)
[2020-02-28] MEDS: predniSONE 20 MG TAB PO SCH (08:32)
[2020-02-28] MEDS: ENOXAPARIN 40 MG/0.4 ML (LOVENOX) SYR SQ SCH (08:34)
[2020-02-28] MEDS: polyethylene glycoL POWDER 17 GM (MIRALAX) PACK PO SCH ×2 (08:36→21:00)
[2020-02-28] MEDS: SENNA W/DOCUSATE (SENOKOT S) TABLET PO SCH ×2 (08:36→21:00)
[2020-02-28] MEDS: DOCUSATE SODIUM 100 MG (COLACE) CAP PO SCH ×2 (08:36→21:00)
[2020-02-28] MEDS: TRIAMCINOLONE 0.5% CR (KENALOG) 15 GM TUBE TOP SCH ×2 (13:26→21:10)
[2020-02-28 17:40] VITALS: BP 128/75
[2020-02-28] MEDS: MIRTAZAPINE 15 MG (REMERON) TAB PO SCH (21:09)
[2020-02-28] MEDS: MELATONIN 3 MG TABLET PO PRN (21:09)
[2020-02-29 06:12] LABS: BASOPHILS # (AUTO) 0.1 10^3/uL (0.0-0.1); BASOPHILS % (AUTO) 1 % (0-10); EOSINOPHILS # (AUTO) 0.3 10^3/uL (0.0-0.3); EOSINOPHILS % (AUTO) 4 % (0-10); HEMATOCRIT 34 % (40-54); HEMOGLOBIN 10.6 g/dL (13.3-17.7); LYMPHOCYTES # (AUTO) 2.7 10^3/uL (1.0-4.0); LYMPHOCYTES % (AUTO) 32 % (12-44); MEAN CORPUSCULAR HEMOGLOBIN 30 pg (25-34); MEAN CORPUSCULAR HGB CONC 31 g/dL (32-36); MEAN CORPUSCULAR VOLUME 96 fL (80-99); MEAN PLATELET VOLUME 9.9 fL (9.0-12.2); MONOCYTES # (AUTO) 0.7 10^3/uL (0.0-1.0); MONOCYTES % (AUTO) 8 % (0-12); NEUTROPHILS # (AUTO) 4.7 10^3/uL (1.8-7.8); NEUTROPHILS % (AUTO) 55 % (42-75); PLATELET COUNT 190 10^3/uL (130-400); WHITE BLOOD COUNT 8.6 10^3/uL (4.3-11.0)
[2020-02-29 06:22] LABS: ALBUMIN 3.3 GM/DL (3.2-4.5)
[2020-02-29 06:23] LABS: CHLORIDE 105 MMOL/L (98-107); POTASSIUM 3.8 MMOL/L (3.6-5.0); SODIUM 141 MMOL/L (135-145)
[2020-02-29 06:24] LABS: CALCIUM 8.6 MG/DL (8.5-10.1)
[2020-02-29 06:25] LABS: GLUCOSE 88 MG/DL (70-105); TOTAL PROTEIN 6.1 GM/DL (6.4-8.2)
[2020-02-29 06:26] LABS: CARBON DIOXIDE 28 MMOL/L (21-32)
[2020-02-29 06:27] LABS: BILIRUBIN,TOTAL 0.4 MG/DL (0.1-1.0)
[2020-02-29 06:28] LABS: ALKALINE PHOSPHATASE 82 U/L (40-136)
[2020-02-29 06:29] LABS: CREATININE SERUM 0.99 MG/DL (0.60-1.30); GFR ESTIMATED > 60
[2020-02-29 06:30] LABS: BUN/CREATININE RATIO 9
[2020-02-29 06:31] LABS: ALANINE AMINOTRANSFERASE 73 U/L (0-55)
[2020-02-29 06:44] VITALS: BP 118/76
--- NOTE | 2020-02-29 08:47 | PM&R Progress Note ---
Subjective HPI/CC On Admission Date Seen by Provider: Feb 29, 2020 Time Seen by Provider: 08:30 Subjective/Events-last exam 02/29/20: Pt slept really well Doing well No pain Getting stronger Monitoring closely 02/28/20: Did not sleep well so willing to try Remeron 15mg and Melatonin Motivated Scoliosis noted Ankle weights provided to help strengthening 02/27/20: Pastoral care visited him and that was helpful given 3 immediate family members have in the past 1 month Trach and PEG dressing changes Aleven on heels Gaining strength 02/26/20: Pastoral care notified Family members 3 of them have within 2 months Tremors noted Heels sore PEG 01/26 placed 02/25/20: Wants PEG tube removed History of placement 01/27/20 No issues Up in chair today Tachycardia noted and on BB NO pain Review of Systems General: Fatigue, Malaise Neurological: Weakness Objective Exam Vital Signs Vital Signs Date Time Temp Pulse Resp B/P (MAP) Pulse Ox O2 Delivery O2 Flow Rate FiO2 02/29/20 20:40 Room Air 02/29/20 18:36 36.8 91 16 111/77 (88) 94 Capillary Refill : General Appearance: No Apparent Distress, WD/WN, Anxious, Thin HEENT: PERRL/EOMI, Normal ENT Inspection, Pharynx Normal Neck: Full Range of Motion, Normal Inspection, Non Tender, Supple, Carotid Bruit Respiratory: Chest Non Tender, Lungs Clear, No Accessory Muscle Use, No Respiratory Distress, Decreased Breath Sounds Cardiovascular: Regular Rate, Rhythm, No Edema, No Gallop, No JVD, No Murmur, Normal Peripheral Pulses Gastrointestinal: Normal Bowel Sounds, No Organomegaly, No Pulsatile Mass, Non Tender, Soft Back: Normal Inspection, No CVA Tenderness, No Vertebral Tenderness Extremity: Normal Capillary Refill, Normal Inspection, Normal Range of Motion, Non Tender, No Calf Tenderness, No Pedal Edema Neurologic/Psychiatric: Alert, Oriented x3, No Motor/Sensory Deficits, Abnormal Gait, Depressed Affect, Motor Weakness (generalized all extremities) Skin: Normal Color, Warm/Dry Lymphatic: No Adenopathy Results/Procedures Lab Laboratory Tests 02/29/20 06:00 Patient resulted labs reviewed. FIM Transfers Therapy Code Descriptions/Definitions Functional [place] Measure: 0=Not Assessed/NA 4=Minimal Assistance 1=Total Assistance 5=Supervision or Setup 2=Maximal Assistance 6=Modified [place] 3=Moderate Assistance 7=Complete IndependenceSCALE: Activities may be completed with or without assistive devices. 7-Amrgduvlsp-pfuewuo completes the activity by him/herself with no assistance from a helper. 5-Set-up or Clean-up Assistance-helper sets up or cleans up; patient completes activity. [place] assists only prior to or following the activity. 4-Supervision or Touching Assistance-helper provides verbal cues and/or touching/steadying and/or contact guard assistance as patient completes ac tivity. Assistance may be provided throughout the activity or intermittently. 3-Partial/Moderate Assistance-helper does LESS THAN HALF the effort. [place] lifts, holds or supports trunk or limbs, but provides less than half the effort. 2-Substantial/Maximal Assistance-helper does MORE THAN HALF the effort. [place] lifts or holds trunk or limbs and provides more than half the effort. 7-Icmuoeexi-xgzzlc does ALL the effort. Patient does none of the effort to complete the activity. Or, the assistance of 2 or more helpers is required for the patient to complete the activity. If activity was not attempted, code reason: 7-Patient Refused. 9-Not Applicable-not attempted and the patient did not perform the activity before the current illness, exacerbation or injury. 10-Not Attempted due to Environmental Limitations-(lack of equipment, weather restraints, etc.). 88-Not Attempted due to Medical Conditions or Safety Concerns. Roll Left to Right (QC): 5 Sit to Lying (QC): 3 Sit to Stand (QC): 2 (mod assist to come to a stand and mod assist initially to gain balacne with skilled cues for upright posture. ) Chair/Zcu-ku-Rncrt Xfer(QC): 3 (min assist with assist for the walker and skilled cues to sequence. ) Car Transfer (QC): 88 Gait Training Does the Patient Walk?: No and Walking Goal IS indicated Distance: 3ft Walk 10 feet (QC): 88 Walk 50 ft with 2 Turns(QC): 88 Walk 150 ft (QC): 88 Walking 10ft/uneven surface-QC: 88 Gait Persons Needed: 1 Gait Assistive Device: FWW Wheelchair Training Does the Pt Use a Wheelchair?: Yes Wheel 50 ft with 2 turns (QC): 3 Wheel 150 ft (QC): 9 Type of Wheelchair: Manual Stair Training 1 Step (curb) (QC): 88 4 Steps (QC): 88 12 Steps (QC): 88 Balance Picking up an Object (QC): 88 ADL-Treatment Eating (QC): 4 (Pt. issued weighted utensils to assist with tremors when feeding self.) Oral Hygiene (QC): 4 (SBA, pt required assistance opening package prior to task.) Shower/Bathe Self (QC): 1 (pt able to wash trunk, BUE, and thighs. Assistance x2 needed for standing while washing buttocks.) Upper Body Dressing (QC): 2 (MaxA, pt able to thread arms through shirt, assist managing up past elbow. Assist threading overhead and adjustment down trunk) Lower Body Dressing (QC): 1 (Assist x2 in stand for pant hike. Pt required assistance threading BLEs into pants.) On/Off Footwear (QC): 1 (Pt attempted to doff socks but unsuccessful, assist to doff and don bilateral gripper socks.) Toileting Hygiene (QC): 2 (Pt. reports that he requires max assist for toileting tasks.) Assessment/Plan Assessment and Plan Assess & Plan/Chief Complaint Assessment: 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 Anemia s/p trach now DC Steroid maintenance Plan: IRF protocol Increase ADL independence Ambulate O2 monitoring 02/25/20: PEG tube when able to DC will DC Monitor BP and HR Monitor O2 02/26/20: Supportive care Monitor closely 02/27/20: Monitor closely BP stable Pastoral care visit 02/28/20: Insomnia treatment Monitor closely Pain management 02/29/20: Monitor insomnia Therapy Wean O2 (1) Myopathy (2) History of tracheostomy (3) Frailty (4) Cough (5) Anemia (6) COVID-19 REGIS MAGALLON DO Feb 29, 2020 08:47
[2020-02-29] MEDS: DOCUSATE SODIUM 100 MG (COLACE) CAP PO SCH ×2 (10:02→20:36)
[2020-02-29] MEDS: SENNA W/DOCUSATE (SENOKOT S) TABLET PO SCH ×2 (10:02→20:36)
[2020-02-29] MEDS: polyethylene glycoL POWDER 17 GM (MIRALAX) PACK PO SCH ×2 (10:02→20:36)
[2020-02-29] MEDS: ENOXAPARIN 40 MG/0.4 ML (LOVENOX) SYR SQ SCH (10:02)
[2020-02-29] MEDS: meTOprolol TARTRATE 50 MG (LOPRESSOR) TAB PO SCH ×2 (10:02→20:46)
[2020-02-29] MEDS: FAMOTIDINE 20 MG (PEPCID) TABLET PO SCH (10:02)
[2020-02-29] MEDS: TRIAMCINOLONE 0.5% CR (KENALOG) 15 GM TUBE TOP SCH ×2 (10:03→20:46)
[2020-02-29] MEDS: predniSONE 5 MG TAB PO SCH (10:05)
--- NOTE | 2020-02-29 10:50 | Occupational Ther Daily Note ---
OT Current Status-Daily Note Subjective Pt laying in bed, agreeable to OT tx. Pt declines showering on this date as he completed a sponge bath yesterday. Pt agreeable to going to therapy gym. Mental Status/Objective Patient Orientation: Person, Place, Time, Situation ADL-Treatment Therapy Code Descriptions/Definitions Functional [place] Measure: 0=Not Assessed/NA 4=Minimal Assistance 1=Total Assistance 5=Supervision or Setup 2=Maximal Assistance 6=Modified [place] 3=Moderate Assistance 7=Complete IndependenceSCALE: Activities may be completed with or without assistive devices. 9-Eiljlwlprn-corclwz completes the activity by him/herself with no assistance from a helper. 5-Set-up or Clean-up Assistance-helper sets up or cleans up; patient completes activity. [place] assists only prior to or following the activity. 4-Supervision or Touching Assistance-helper provides verbal cues and/or touching/steadying and/or contact guard assistance as patient completes activity. Assistance may be provided throughout the activity or intermittently. 3-Partial/Moderate Assistance-helper does LESS THAN HALF the effort. [place] lifts, holds or supports trunk or limbs, but provides less than half the effort. 2-Substantial/Maximal Assistance-helper does MORE THAN HALF the effort. [place] lifts or holds trunk or limbs and provides more than half the effort. 7-Mxycykdew-ysqxhw does ALL the effort. Patient does none of the effort to complete the activity. Or, the assistance of 2 or more helpers is required for the patient to complete the activity. If activity was not attempted, code reason: 7-Patient Refused. 9-Not Applicable-not attempted and the patient did not perform the activity before the current illness, exacerbation or injury. 10-Not Attempted due to Environmental Limitations-(lack of equipment, weather restraints, etc.). 88-Not Attempted due to Medical Conditions or Safety Concerns. Eating (QC): 5 (Assist opening lemonade packet, pouring into container, and filling cup with tea. Pt then able to take a drink independently.) On/Off Footwear: 6 (Assist donning bilateral gripper socks.) Other Treatment Pt laying in bed using urinal, agreeable to OT tx. Pt transferred supine to sit EOB with SBA. Pt transferred from EOB to w/c, using FWW with CGA. Pt self- propelled w/c to doorway. OT took pt to therapy gym. In order to increase BUE strength and functional endurance and to increase UE ROM, pt completed x5 mins on arm aretha. In order to increase fine motor strength, pt completed fine motor activity, removing x10 beads from moderate resistance red theraputty. Pt then completed fine motor task of peg dominoes to increase fine motor coordination. Pt taken back to his room, transferring to recliner using FWW, CGA. Pt required extensive rest breaks throughout tx. Post tx, pt seated in recliner, call light in reach and all needs met. Education OT Patient Education: Correct positioning, Energy conservation, Exercise program, Modified ADL techniques, Progress toward Goal/Update tx plan, Purpose of tx/functional activities Teaching Recipient: Patient Teaching Methods: Discussion Response to Teaching: Verbalize Understanding, Return Demonstration OT Short Term Goals Short Term Goals Time Frame: Mar 09, 2020 Eatin Oral hygiene: 5 Toileting hygiene: 4 Shower/bathe self: 4 Upper body dressin Lower body dressin Putting on/taking off footwear: 4 OT Mcfp Goals Mcfp Goals Time Frame: Mar 23, 2020 Eating (QC): 6 Oral Hygiene (QC): 6 Toileting Hygiene (QC): 6 Shower/Bathe Self (QC): 6 Upper Body Dressing (QC): 6 Lower Body Dressing (QC): 6 On/Off Footwear (QC): 6 Additional Goals: 1-Demonstrate ADL Tasks, 2-Verbalize Understanding, 3-Improve Strength/Day 1=Demonstrate adherence to instructed precautions during ADL tasks. 2=Patient will verbalize/demonstrate understanding of assistive devices/modifications for ADL. 3=Patient will improve strength/tolerance for activity to enable patient to pe rform ADL's. OT Education/Plan Problem List/Assessment Assessment: Decreased Activ Tolerance, Decreased UE Strength, Impaired I ADL's, Impaired Self-Care Skills, Restricted Funct UE ROM Discharge Recommendations Plan/Recommendations: Continue POC Treatment Plan/Plan of Care Patient would benefit from OT for education, treatment and training to promote independence in ADL's, mobility, safety and/or upper extremity function for ADL's. Plan of Care: ADL Retraining, Caregiver Training, Concurrent Therapy, Functiona l Mobility, Group Exercise/Act as Ind, UE Funct Exercise/Act, UE Neuromus Re- Ed/Coord Treatment Duration: Mar 09, 2020 Frequency: Modified Program (IRF) Estimated Hrs Per Day: 1 hour per day Agreement: Yes Rehab Potential: Good Time/GCodes Start Time: 09:30 Stop Time: 10:30 Total Time Billed (hr/min): 60 Billed Treatment Time 1, EX (10'), FA 3 (45') FLOYD SPAIN OT Feb 29, 2020 10:50
--- NOTE | 2020-02-29 12:12 | Physical Therapy Daily Note ---
PT Daily Note-Current Subjective Pt. agrees to Rx, states x 3 during Rx that he feels SOA. O2 sats monitored during Rx. "I'll do whatever it takes" Pain Numeric Pain Scale: 3 Location: Left Location Body Site: Chest (tubes) Pain Description: Burning Mental Status Patient Orientation: Normal For Age Attachments: Drains Transfers SCALE: Activities may be completed with or without assistive devices. 4-Hdufqyhmvo-xfnebpm completes the activity by him/herself with no assistance from a helper. 5-Set-up or Clean-up Assistance-helper sets up or cleans up; patient completes activity. [place] assists only prior to or following the activity. 4-Supervision or Touching Assistance-helper provides verbal cues and/or touching/steadying and/or contact guard assistance as patient completes activity. Assistance may be provided throughout the activity or intermittently. 3-Partial/Moderate Assistance-helper does LESS THAN HALF the effort. [place] lifts, holds or supports trunk or limbs, but provides less than half the effort. 2-Substantial/Maximal Assistance-helper does MORE THAN HALF the effort. [place] lifts or holds trunk or limbs and provides more than half the effort. 1-Qrquyemku-tqaymv does ALL the effort. Patient does none of the effort to complete the activity. Or, the assistance of 2 or more helpers is required for the patient to complete the activity. If activity was not attempted, code reason: 7-Patient Refused. 9-Not Applicable-not attempted and the patient did not perform the activity before the current illness, exacerbation or injury. 10-Not Attempted due to Environmental Limitations-(lack of equipment, weather restraints, etc.). 88-Not Attempted due to Medical Conditions or Safety Concerns. Roll Left & Right (QC): 6 Sit to Lying (QC): 6 Lying to Sitting/Side of Bed(Q: 6 Sit to Stand (QC): 4 Chair/Mwp-ms-Xroxi Xfer(QC): 4 Weight Bearing Right Lower Extremity: Right Full Weight Bearing Left Lower Extremity: Left Full Weight Bearing Gait Training Does the Patient Walk?: Yes Walk 10 feet (QC): 4 Gait Persons Needed: 1 Gait Assistive Device: FWW 10ft, 4ftx2 FWW slow, small steps, w/c close Wheelchair Training Does the Pt Use a Wheelchair?: Yes Wheel 50 ft with 2 turns (QC): 5 Type of Wheelchair: Manual pt. very fatigued and SOB with w/c mobility Exercises Supine Ex: Bridging, Ankle pumps, Rolling, Glut sets, Heel Slides, Scooting, Straight leg raise, Hip abd/add (sup and side) Supine Reps: 8 (x2) Treatments sit to stands, sitting LE exercises, SPTs, short bout of gait, on room air O2 sats 95% at rest, 82% with activity at one check point, after breathing exercises and instruction O2 sats 90% > with activity Assessment Current Status: Good Progress fatigues and requires rest breaks frequently PT Short Term Goals Short Term Goals Time Frame: Mar 09, 2020 Roll Left & Right: 6 Sit to lyin Lying to sitting on side of be: 6 Sit to stand: 6 Chair/ett-zx-kzapt transfer: 6 PT Jail Goals Jail Goals PT Exercise Physiologist Goals Time Frame: Mar 16, 2020 Roll Left & Right (QC): 6 Sit to Lying (QC): 6 Lying-Sitting on Side/Bed(QC): 6 Sit to Stand (QC): 6 Chair/Cxl-oy-Erlue Xfer(QC): 6 Toilet Transfer (QC): 6 Car Transfer (QC): 5 Does the Patient Walk: No and Walking Goal IS indicated Walk 10 feet (QC): 6 Walk 50ft with 2 Turns (QC): 6 Walk 150 ft (QC): 6 Walking 10ft on Uneven Surface: 6 1 Step (curb) (QC): 6 4 Steps (QC): 5 12 Steps (QC): 5 Picking up an Object (QC): 6 Does the Pt use WC or Scooter?: No Wheel 50 feet with 2 turns (QC: 9 Type: N/A Wheel 150 feet: 9 Type: N/A PT Plan Treatment/Plan Treatment Plan: Continue Plan of Care Treatment Plan: Bed Mobility, Education, Functional Activity Day, Functional Strength, Group Therapy, Gait, Safety, Therapeutic Exercise, Transfers Treatment Duration: Mar 16, 2020 Frequency: Modified Program (IRF) Estimated Hrs Per Day: Other Patient and/or Family Agrees t: Yes Safety Risks/Education Patient Education: Gait Training, Transfer Techniques, Correct Positioning, W/C Management, Disease Process, Safety Issues Teaching Recipient: Patient Teaching Methods: Demonstration, Discussion Response to Teaching: Verbalize Understanding, Return Demonstration, Reinforcement Needed Time/GCodes Time In: 1100 Time Out: 1200 Total Billed Treatment Time: 60 Total Billed Treatment 1,EX25m,FA35m GAURI MCNAIR CLINICAL WRITER Feb 29, 2020 12:12
--- NOTE | 2020-02-29 14:04 | Physical Therapy Daily Note ---
PT Daily Note-Current Subjective Pt. feels he has made progress, wants some exercises he can do in room himself Pain Location: No Pain Reported Mental Status Patient Orientation: Normal For Age Attachments: [place] Transfers SCALE: Activities may be completed with or without assistive devices. 5-Oxkmndwytx-finhsqi completes the activity by him/herself with no assistance from a helper. 5-Set-up or Clean-up Assistance-helper sets up or cleans up; patient completes activity. [place] assists only prior to or following the activity. 4-Supervision or Touching Assistance-helper provides verbal cues and/or touching/steadying and/or contact guard assistance as patient completes activity. Assistance may be provided throughout the activity or intermittently. 3-Partial/Moderate Assistance-helper does LESS THAN HALF the effort. [place] lifts, holds or supports trunk or limbs, but provides less than half the effort. 2-Substantial/Maximal Assistance-helper does MORE THAN HALF the effort. [place] lifts or holds trunk or limbs and provides more than half the effort. 8-Sbamzlpje-xyorqg does ALL the effort. Patient does none of the effort to complete the activity. Or, the assistance of 2 or more helpers is required for the patient to complete the activity. If activity was not attempted, code reason: 7-Patient Refused. 9-Not Applicable-not attempted and the patient did not perform the activity before the current illness, exacerbation or injury. 10-Not Attempted due to Environmental Limitations-(lack of equipment, weather restraints, etc.). 88-Not Attempted due to Medical Conditions or Safety Concerns. sit to stand and sit to supine all CGA Weight Bearing Right Lower Extremity: Right Full Weight Bearing Left Lower Extremity: Left Full Weight Bearing Gait Training Gait Assistive Device: FWW 6-7 feet chair to bed with FWW CGA slow Exercises Supine Ex: Bridging, Ankle pumps, Quad Set, Straight leg raise Supine Reps: 10 (x2) Treatments TRRF chair , short walk to bed , LE exercises pt. can do in room after Rx at his leisure ie, Qsets, Gsets, bridges, SLRs Assessment Current Status: Good Progress steady progress PT Short Term Goals Short Term Goals Time Frame: Mar 09, 2020 Roll Left & Right: 6 Sit to lyin Lying to sitting on side of be: 6 Sit to stand: 6 Chair/ewi-cz-vxuhg transfer: 6 PT Longterm Goals Vault Mechanic Goals PT Longterm Goals Time Frame: Mar 16, 2020 Roll Left & Right (QC): 6 Sit to Lying (QC): 6 Lying-Sitting on Side/Bed(QC): 6 Sit to Stand (QC): 6 Chair/Klm-rz-Mspoj Xfer(QC): 6 Toilet Transfer (QC): 6 Car Transfer (QC): 5 Does the Patient Walk: No and Walking Goal IS indicated Walk 10 feet (QC): 6 Walk 50ft with 2 Turns (QC): 6 Walk 150 ft (QC): 6 Walking 10ft on Uneven Surface: 6 1 Step (curb) (QC): 6 4 Steps (QC): 5 12 Steps (QC): 5 Picking up an Object (QC): 6 Does the Pt use WC or Scooter?: No Wheel 50 feet with 2 turns (QC: 9 Type: N/A Wheel 150 feet: 9 Type: N/A PT Plan Treatment/Plan Treatment Plan: Continue Plan of Care Treatment Plan: Bed Mobility, Education, Functional Activity Day, Functional Strength, Group Therapy, Gait, Safety, Therapeutic Exercise, Transfers Treatment Duration: Mar 16, 2020 Frequency: Modified Program (IRF) Estimated Hrs Per Day: Other Patient and/or Family Agrees t: Yes Safety Risks/Education Patient Education: Gait Training, Transfer Techniques, Correct Positioning, Disease Process, Safety Issues Teaching Recipient: Patient Teaching Methods: Demonstration, Discussion Response to Teaching: Verbalize Understanding, Return Demonstration, Reinforcement Needed Time/GCodes Time In: 1335 Time Out: 1400 Total Billed Treatment Time: 25 Total Billed Treatment 1,FA10m,EX15m GAURI MCNAIR MANUFACTURING LEAD Feb 29, 2020 14:04
[2020-02-29 18:36] VITALS: BP 111/77
[2020-02-29] MEDS: MIRTAZAPINE 15 MG (REMERON) TAB PO SCH (20:46)
[2020-02-29] MEDS: MELATONIN 3 MG TABLET PO PRN (20:46)
[2020-03-01 06:18] VITALS: BP 117/73
--- NOTE | 2020-03-01 08:47 | PM&R Progress Note ---
Subjective HPI/CC On Admission Date Seen by Provider: Mar 01, 2020 Time Seen by Provider: 08:30 Subjective/Events-last exam 03/01/20: Pt doing pretty well Slept well Denies any significant new issues Participating in therapy 02/29/20: Pt slept really well Doing well No pain Getting stronger Monitoring closely 02/28/20: Did not sleep well so willing to try Remeron 15mg and Melatonin Motivated Scoliosis noted Ankle weights provided to help strengthening 02/27/20: Pastoral care visited him and that was helpful given 3 immediate family members have in the past 1 month Trach and PEG dressing changes Aleven on heels Gaining strength 02/26/20: Pastoral care notified Family members 3 of them have within 2 months Tremors noted Heels sore PEG 01/26 placed 02/25/20: Wants PEG tube removed History of placement 01/27/20 No issues Up in chair today Tachycardia noted and on BB NO pain Review of Systems Pulmonary: Dyspnea Neurological: Weakness, Incoordination Objective Exam Vital Signs Vital Signs Date Time Temp Pulse Resp B/P (MAP) Pulse Ox O2 Delivery O2 Flow Rate FiO2 03/01/20 21:05 Room Air 03/01/20 17:55 36.9 91 18 123/71 (88) 94 Capillary Refill : General Appearance: No Apparent Distress, WD/WN, Anxious, Thin HEENT: PERRL/EOMI, Normal ENT Inspection, Pharynx Normal Neck: Full Range of Motion, Normal Inspection, Non Tender, Supple, Carotid Bruit Respiratory: Chest Non Tender, Lungs Clear, No Accessory Muscle Use, No Respiratory Distress, Decreased Breath Sounds Cardiovascular: Regular Rate, Rhythm, No Edema, No Gallop, No JVD, No Murmur, Normal Peripheral Pulses Gastrointestinal: Normal Bowel Sounds, No Organomegaly, No Pulsatile Mass, Non Tender, Soft Back: Normal Inspection, No CVA Tenderness, No Vertebral Tenderness Extremity: Normal Capillary Refill, Normal Inspection, Normal Range of Motion, Non Tender, No Calf Tenderness, No Pedal Edema Neurologic/Psychiatric: Alert, Oriented x3, No Motor/Sensory Deficits, Abnormal Gait, Depressed Affect, Motor Weakness (generalized all extremities) Skin: Normal Color, Warm/Dry Lymphatic: No Adenopathy Results/Procedures Lab Patient resulted labs reviewed. FIM Transfers Therapy Code Descriptions/Definitions Functional [place] Measure: 0=Not Assessed/NA 4=Minimal Assistance 1=Total Assistance 5=Supervision or Setup 2=Maximal Assistance 6=Modified [place] 3=Moderate Assistance 7=Complete IndependenceSCALE: Activities may be completed with or without assistive devices. 2-Ngmssptkuj-dxksdam completes the activity by him/herself with no assistance from a helper. 5-Set-up or Clean-up Assistance-helper sets up or cleans up; patient completes activity. [place] assists only prior to or following the activity. 4-Supervision or Touching Assistance-helper provides verbal cues and/or touching/steadying and/or contact guard assistance as patient completes activity. Assistance may be provided throughout the activity or intermittently. 3-Partial/Moderate Assistance-helper does LESS THAN HALF the effort. [place] lifts, holds or supports trunk or limbs, but provides less than half the effort. 2-Substantial/Maximal Assistance-helper does MORE THAN HALF the effort. [place] lifts or holds trunk or limbs and provides more than half the effort. 9-Wzulgymgf-hcjeik does ALL the effort. Patient does none of the effort to complete the activity. Or, the assistance of 2 or more helpers is required for the patient to complete the activity. If activity was not attempted, code reason: 7-Patient Refused. 9-Not Applicable-not attempted and the patient did not perform the activity before the current illness, exacerbation or injury. 10-Not Attempted due to Environmental Limitations-(lack of equipment, weather restraints, etc.). 88-Not Attempted due to Medical Conditions or Safety Concerns. Roll Left to Right (QC): 6 Sit to Lying (QC): 6 Sit to Stand (QC): 4 Chair/Uax-op-Aapcc Xfer(QC): 4 Car Transfer (QC): 88 Gait Training Does the Patient Walk?: Yes Distance: 3ft Walk 10 feet (QC): 4 Walk 50 ft with 2 Turns(QC): 88 Walk 150 ft (QC): 88 Walking 10ft/uneven surface-QC: 88 Gait Persons Needed: 1 Gait Assistive Device: FWW Wheelchair Training Does the Pt Use a Wheelchair?: Yes Wheel 50 ft with 2 turns (QC): 5 Wheel 150 ft (QC): 9 Type of Wheelchair: Manual Stair Training 1 Step (curb) (QC): 88 4 Steps (QC): 88 12 Steps (QC): 88 Balance Picking up an Object (QC): 88 ADL-Treatment Eating (QC): 5 (Assist opening lemonade packet, pouring into container, and filling cup with tea. Pt then able to take a drink independently.) Oral Hygiene (QC): 4 (SBA, pt required assistance opening package prior to task.) Shower/Bathe Self (QC): 1 (pt able to wash trunk, BUE, and thighs. Assistance x2 needed for standing while washing buttocks.) Upper Body Dressing (QC): 2 (MaxA, pt able to thread arms through shirt, assist managing up past elbow. Assist threading overhead and adjustment down trunk) Lower Body Dressing (QC): 1 (Assist x2 in stand for pant hike. Pt required assistance threading BLEs into pants.) On/Off Footwear (QC): 6 (Assist donning bilateral gripper socks.) Toileting Hygiene (QC): 2 (Pt. 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
--- NOTE | 2020-03-01 08:53 | Physical Therapy Daily Note ---
PT Daily Note-Current Subjective Patient in bed pre tx, agrees to PT, has no complaints of pain. Appearance Patient in recliner post tx with nurse call, phone, tray, all needs met. Mental Status Patient Orientation: Person, Place, Situation Transfers SCALE: Activities may be completed with or without assistive devices. 7-Kapsrekuwc-odusbar completes the activity by him/herself with no assistance from a helper. 5-Set-up or Clean-up Assistance-helper sets up or cleans up; patient completes activity. [place] assists only prior to or following the activity. 4-Supervision or Touching Assistance-helper provides verbal cues and/or touching /steadying and/or contact guard assistance as patient completes activity. Assistance may be provided throughout the activity or intermittently. 3-Partial/Moderate Assistance-helper does LESS THAN HALF the effort. [place] lifts, holds or supports trunk or limbs, but provides less than half the effort. 2-Substantial/Maximal Assistance-helper does MORE THAN HALF the effort. [place] lifts or holds trunk or limbs and provides more than half the effort. 3-Dkzugqwct-vqlnms does ALL the effort. Patient does none of the effort to complete the activity. Or, the assistance of 2 or more helpers is required for the patient to complete the activity. If activity was not attempted, code reason: 7-Patient Refused. 9-Not Applicable-not attempted and the patient did not perform the activity before the current illness, exacerbation or injury. 10-Not Attempted due to Environmental Limitations-(lack of equipment, weather restraints, etc.). 88-Not Attempted due to Medical Conditions or Safety Concerns. Roll Left & Right (QC): 6 Lying to Sitting/Side of Bed(Q: 6 Sit to Stand (QC): 4 Chair/Jos-gq-Xondz Xfer(QC): 4 Weight Bearing Right Lower Extremity: Right Full Weight Bearing Left Lower Extremity: Left Full Weight Bearing Gait Training Distance: 20'x3 Walk 10 feet (QC): 4 Gait Persons Needed: 1 Gait Assistive Device: FWW WC follow, narrow FARSHAD, slow ambulation, very SOB afterward Wheelchair Training Does the Pt Use a Wheelchair?: Yes Wheel 50 ft with 2 turns (QC): 4 Type of Wheelchair: Manual 120', SBA, many rest breaks due to SOB Exercises NuStep Minutes: 15 NuStep Workload: 3 Treatments bed mobility and transfers, ambulation, WC mobility, LE strengthening Assessment Current Status: Fair Progress slowly improving endurance PT Short Term Goals Short Term Goals Time Frame: Mar 09, 2020 Roll Left & Right: 6 Sit to lyin Lying to sitting on side of be: 6 Sit to stand: 6 Chair/cco-xu-kpkgg transfer: 6 PT Care Home Goals Architectural Practice Manager Goals PT Care Home Goals Time Frame: Mar 16, 2020 Roll Left & Right (QC): 6 Sit to Lying (QC): 6 Lying-Sitting on Side/Bed(QC): 6 Sit to Stand (QC): 6 Chair/Mys-bi-Iisjz Xfer(QC): 6 Toilet Transfer (QC): 6 Car Transfer (QC): 5 Does the Patient Walk: No and Walking Goal IS indicated Walk 10 feet (QC): 6 Walk 50ft with 2 Turns (QC): 6 Walk 150 ft (QC): 6 Walking 10ft on Uneven Surface: 6 1 Step (curb) (QC): 6 4 Steps (QC): 5 12 Steps (QC): 5 Picking up an Object (QC): 6 Does the Pt use WC or Scooter?: No Wheel 50 feet with 2 turns (QC: 9 Type: N/A Wheel 150 feet: 9 Type: N/A PT Plan Problem List Problem List: Activity Tolerance, Functional Strength, Safety, Balance, Gait, Transfer, Bed Mobility, ROM Treatment/Plan Treatment Plan: Continue Plan of Care Treatment Plan: Bed Mobility, Education, Functional Activity Day, Functional Strength, Group Therapy, Gait, Safety, Therapeutic Exercise, Transfers Treatment Duration: Mar 16, 2020 Frequency: Modified Program (IRF) Estimated Hrs Per Day: Other Patient and/or Family Agrees t: Yes Safety Risks/Education Patient Education: Gait Training, Transfer Techniques, Correct Positioning, W/C Management, Safety Issues Teaching Recipient: Patient Teaching Methods: Demonstration, Discussion Response to Teaching: Reinforcement Needed Time/GCodes Time In: 0800 Time Out: 0900 Total Billed Treatment Time: 60 Total Billed Treatment 1 visit GT 30' EX 15' FA 15' AYSHA BLACKBURN PT Mar 01, 2020 08:53
[2020-03-01] MEDS: polyethylene glycoL POWDER 17 GM (MIRALAX) PACK PO SCH ×2 (09:00→21:09)
[2020-03-01] MEDS: SENNA W/DOCUSATE (SENOKOT S) TABLET PO SCH ×2 (09:00→21:09)
[2020-03-01] MEDS: DOCUSATE SODIUM 100 MG (COLACE) CAP PO SCH ×2 (09:00→21:09)
[2020-03-01] MEDS: predniSONE 5 MG TAB PO SCH (09:02)
[2020-03-01] MEDS: meTOprolol TARTRATE 50 MG (LOPRESSOR) TAB PO SCH ×2 (09:02→21:05)
[2020-03-01] MEDS: FAMOTIDINE 20 MG (PEPCID) TABLET PO SCH (09:02)
[2020-03-01] MEDS: TRIAMCINOLONE 0.5% CR (KENALOG) 15 GM TUBE TOP SCH ×2 (09:02→21:09)
[2020-03-01] MEDS: ENOXAPARIN 40 MG/0.4 ML (LOVENOX) SYR SQ SCH (09:02)
--- NOTE | 2020-03-01 10:00 | Occupational Ther Daily Note ---
OT Current Status-Daily Note Subjective Pt agreed to OT tx. Pt mentioned pain in stomach area and lower back pain at the end of tx, does not provide pain rating. Mental Status/Objective Patient Orientation: Person, Place, Time, Situation ADL-Treatment Therapy Code Descriptions/Definitions Functional [place] Measure: 0=Not Assessed/NA 4=Minimal Assistance 1=Total Assistance 5=Supervision or Setup 2=Maximal Assistance 6=Modified [place] 3=Moderate Assistance 7=Complete IndependenceSCALE: Activities may be completed with or without assistive devices. 2-Uugdqczgfx-sbbctdv completes the activity by him/herself with no assistance from a helper. 5-Set-up or Clean-up Assistance-helper sets up or cleans up; patient completes activity. [place] assists only prior to or following the activity. 4-Supervision or Touching Assistance-helper provides verbal cues and/or touching/steadying and/or contact guard assistance as patient completes activity. Assistance may be provided throughout the activity or intermittently. 3-Partial/Moderate Assistance-helper does LESS THAN HALF the effort. [place] lifts, holds or supports trunk or limbs, but provides less than half the effort. 2-Substantial/Maximal Assistance-helper does MORE THAN HALF the effort. [place] lifts or holds trunk or limbs and provides more than half the effort. 0-Jlqxzvuws-qkewtq does ALL the effort. Patient does none of the effort to complete the activity. Or, the assistance of 2 or more helpers is required for the patient to complete the activity. If activity was not attempted, code reason: 7-Patient Refused. 9-Not Applicable-not attempted and the patient did not perform the activity before the current illness, exacerbation or injury. 10-Not Attempted due to Environmental Limitations-(lack of equipment, weather restraints, etc.). 88-Not Attempted due to Medical Conditions or Safety Concerns. Oral Hygiene (QC): 5 (Set up sitting edge of bed) Shower/Bathe Self (QC): 4 (Pt able to reach all areas for sponge bath, CGA for standing to wash buttocks) Upper Body Dressing (QC): 3 (Sergei, assistance needed to pull shirt overhead due to weakness in BUE. Pt able to thread arms through shirt and adjust over trunk) Lower Body Dressing (QC): 4 (CGA, pt able to thread pants and perform pants hike. CGA needed while standing) Other Treatment Seated in recliner, pt participated in sponge bath. Pt able to reach all body parts and doffed/donned shirt at Sergei and pants at [facility] for standing. Pt transferred from recliner to EOB to perform oral care at set up. Pt performed UE exercises of the following; R shoulder flexion, L passive shoulder flexion, with minimal resistance B bicep curls and triceps. Pt participated in putty fine motor activity at medium resistance and graded clothes pin activity (1-5lb) to work on activity tolerance and hand strengthening. pt transferred sit to supine independently, with call light in reach and all needs met. Education OT Patient Education: Correct positioning, Exercise program, Modified ADL techniques, Progress toward Goal/Update tx plan, Purpose of tx/functional activities, Reviewed precautions, Safety issues Teaching Recipient: Patient Teaching Methods: Demonstration Response to Teaching: Verbalize Understanding OT Short Term Goals Short Term Goals Time Frame: Mar 09, 2020 Eatin Oral hygiene: 5 Toileting hygiene: 4 Shower/bathe self: 4 Upper body dressin Lower body dressin Putting on/taking off footwear: 4 OT Election Supervisor Goals Nursing Home Goals Time Frame: Mar 23, 2020 Eating (QC): 6 Oral Hygiene (QC): 6 Toileting Hygiene (QC): 6 Shower/Bathe Self (QC): 6 Upper Body Dressing (QC): 6 Lower Body Dressing (QC): 6 On/Off Footwear (QC): 6 Additional Goals: 1-Demonstrate ADL Tasks, 2-Verbalize Understanding, 3- ImproveStrength/Day 1=Demonstrate adherence to instructed precautions during ADL tasks. 2=Patient will verbalize/demonstrate understanding of assistive devices/ modifications for ADL. 3=Patient will improve strength/tolerance for activity to enable patient to perform ADL's. OT Education/Plan Problem List/Assessment Assessment: Decreased Activ Tolerance, Decreased UE Strength, Impaired Funct Balance, Impaired I ADL's, Impaired Self-Care Skills, Restricted Funct UE ROM Discharge Recommendations Plan/Recommendations: Continue POC Treatment Plan/Plan of Care Patient would benefit from OT for education, treatment and training to promote independence in ADL's, mobility, safety and/or upper extremity function for ADL's. Plan of Care: ADL Retraining, Caregiver Training, Concurrent Therapy, Functional Mobility, Group Exercise/Act as Ind, UE Funct Exercise/Act, UE Neuromus Re-Ed/Coord Treatment Duration: Mar 09, 2020 Frequency: Modified Program (IRF) Estimated Hrs Per Day: 1 hour per day Agreement: Yes Rehab Potential: Good Time/GCodes Start Time: 09:00 Stop Time: 10:00 Total Time Billed (hr/min): 60 Billed Treatment Time 1, ADL 2 (30'), FA (20'), EX (10') FLOYD SPAIN OT Mar 01, 2020 10:00
[2020-03-01 17:55] VITALS: BP 123/71
[2020-03-01] MEDS: MIRTAZAPINE 15 MG (REMERON) TAB PO SCH (21:05)
[2020-03-01] MEDS: MELATONIN 3 MG TABLET PO PRN (21:05)
[2020-03-02 06:25] VITALS: BP 116/79
--- NOTE | 2020-03-02 08:33 | Occupational Ther Daily Note ---
OT Current Status-Daily Note Subjective Pt laying in bed sleeping, easily awoken and agreeable to OT tx. Pt reports pain in his back 05/21. Mental Status/Objective Patient Orientation: Person, Place, Time, Situation ADL-Treatment Therapy Code Descriptions/Definitions Functional [place] Measure: 0=Not Assessed/NA 4=Minimal Assistance 1=Total Assistance 5=Supervision or Setup 2=Maximal Assistance 6=Modified [place] 3=Moderate Assistance 7=Complete IndependenceSCALE: Activities may be completed with or without assistive devices. 3-Ubchyqlrxn-cpjiowx completes the activity by him/herself with no assistance from a helper. 5-Set-up or Clean-up Assistance-helper sets up or cleans up; patient completes activity. [place] assists only prior to or following the activity. 4-Supervision or Touching Assistance-helper provides verbal cues and/or touching/steadying and/or contact guard assistance as patient completes activity. Assistance may be provided throughout the activity or intermittently. 3-Partial/Moderate Assistance-helper does LESS THAN HALF the effort. [place] lifts, holds or supports trunk or limbs, but provides less than half the effort. 2-Substantial/Maximal Assistance-helper does MORE THAN HALF the effort. [place] lifts or holds trunk or limbs and provides more than half the effort. 3-Inpzslzou-ydgwxu does ALL the effort. Patient does none of the effort to complete the activity. Or, the assistance of 2 or more helpers is required for the patient to complete the activity. If activity was not attempted, code reason: 7-Patient Refused. 9-Not Applicable-not attempted and the patient did not perform the activity before the current illness, exacerbation or injury. 10-Not Attempted due to Environmental Limitations-(lack of equipment, weather restraints, etc.). 88-Not Attempted due to Medical Conditions or Safety Concerns. Toileting Hygiene (QC): 2 (Pt able to manage clothing down, assist with hygiene and pant hike.) Toilet Transfer (QC): 4 (CGA on/off BSC.) Other Treatment Pt laying in bed, transferred supine to sit EOB with SBA. Pt then stood at FWW and took a few steps with SBA, pt had LOB requiring him to sit abruptly into w/c. Pt taken to therapy gym. In order to increase BUE Strength and endurance, and UE ROM, pt completed pulleys x5 mins, with a rest break after. Pt then completed fine motor task, removing beads from moderate resistance red theraputty in order to increase fine motor strength/coordination. Pt also completed pegboard, placing 1" pegs into foam pegboard to increase activity tolerance and fine motor strength. Pt able to place x40 pegs, alternating hands. Pt required rest breaks between each activity. Pt states need to have BM, OT took pt back to his room, transferred to [facility] using FWW with CGA. Pt completed toileting, then used FWW to transfer to EOB, CGA. Pt transferred supine to sit EOB, SBA. Post tx, pt laying in bed, call light in reach and all needs met. Education OT Patient Education: Correct positioning, Modified ADL techniques, Progress toward Goal/Update tx plan, Purpose of tx/functional activities Teaching Recipient: Patient Teaching Methods: Discussion Response to Teaching: Verbalize Understanding OT Short Term Goals Short Term Goals Time Frame: Mar 09, 2020 Eatin Oral hygiene: 5 Toileting hygiene: 4 Shower/bathe self: 4 Upper body dressin Lower body dressin Putting on/taking off footwear: 4 OT Senior Care Goals Model Maker Apprentice Goals Time Frame: Mar 23, 2020 Eating (QC): 6 Oral Hygiene (QC): 6 Toileting Hygiene (QC): 6 Shower/Bathe Self (QC): 6 Upper Body Dressing (QC): 6 Lower Body Dressing (QC): 6 On/Off Footwear (QC): 6 Additional Goals: 1-Demonstrate ADL Tasks, 2-Verbalize Understanding, 3-Im proveStrength/Day 1=Demonstrate adherence to instructed precautions during ADL tasks. 2=Patient will verbalize/demonstrate understanding of assistive devices/modifications for ADL. 3=Patient will improve strength/tolerance for activity to enable patient to perform ADL's. OT Education/Plan Problem List/Assessment Assessment: Decreased Activ Tolerance, Decreased UE Strength, Impaired Funct Balance, Impaired I ADL's, Impaired Self-Care Skills Discharge Recommendations Plan/Recommendations: Continue POC Treatment Plan/Plan of Care Patient would benefit from OT for education, treatment and training to promote independence in ADL's, mobility, safety and/or upper extremity function for ADL's. Plan of Care: ADL Retraining, Caregiver Training, Concurrent Therapy, Funct ional Mobility, Group Exercise/Act as Ind, UE Funct Exercise/Act, UE Neuromus Re-Ed/Coord Treatment Duration: Mar 09, 2020 Frequency: Modified Program (IRF) Estimated Hrs Per Day: 1 hour per day Agreement: Yes Rehab Potential: Good Time/GCodes Start Time: 08:00 Stop Time: 09:00 Total Time Billed (hr/min): 60 Billed Treatment Time 1, EX (10'), FA 2 (35'), ADL (15') FLOYD SPAIN OT Mar 02, 2020 08:33
[2020-03-02] MEDS: predniSONE 5 MG TAB PO SCH (09:16)
[2020-03-02] MEDS: meTOprolol TARTRATE 50 MG (LOPRESSOR) TAB PO SCH ×2 (09:16→20:22)
[2020-03-02] MEDS: FAMOTIDINE 20 MG (PEPCID) TABLET PO SCH (09:16)
[2020-03-02] MEDS: ENOXAPARIN 40 MG/0.4 ML (LOVENOX) SYR SQ SCH (09:16)
[2020-03-02] MEDS: DOCUSATE SODIUM 100 MG (COLACE) CAP PO SCH ×2 (09:21→20:20)
[2020-03-02] MEDS: SENNA W/DOCUSATE (SENOKOT S) TABLET PO SCH ×2 (09:22→20:20)
[2020-03-02] MEDS: polyethylene glycoL POWDER 17 GM (MIRALAX) PACK PO SCH ×2 (09:22→20:20)
[2020-03-02] MEDS: TRIAMCINOLONE 0.5% CR (KENALOG) 15 GM TUBE TOP SCH ×2 (09:23→20:22)
--- NOTE | 2020-03-02 10:39 | PM&R Progress Note ---
Subjective HPI/CC On Admission Date Seen by Provider: Mar 02, 2020 Time Seen by Provider: 09:30 Subjective/Events-last exam 03/02/20: Bowels are moving Doing very well Dramatic improvement walking Overall no significant issues 03/01/20: Pt doing pretty well Slept well Denies any significant new issues Participating in therapy 02/29/20: Pt slept really well Doing well No pain Getting stronger Monitoring closely 02/28/20: Did not sleep well so willing to try Remeron 15mg and Melatonin Motivated Scoliosis noted Ankle weights provided to help strengthening 02/27/20: Pastoral care visited him and that was helpful given 3 immediate family members have in the past 1 month Trach and PEG dressing changes [place] on heels Gaining strength 02/26/20: Pastoral care notified Family members 3 of them have within 2 months Tremors noted Heels sore PEG 01/26 placed 02/25/20: Wants PEG tube removed History of placement 01/27/20 No issues Up in chair today Tachycardia noted and on BB NO pain Review of Systems General: Fatigue Pulmonary: Dyspnea, Cough Neurological: Weakness Objective Exam Vital Signs Vital Signs Date Time Temp Pulse Resp B/P (MAP) Pulse Ox O2 Delivery O2 Flow Rate FiO2 03/02/20 20:30 94 Room Air 03/02/20 20:17 99 113/61 (78) 03/02/20 18:00 36.4 18 Capillary Refill : General Appearance: No Apparent Distress, WD/WN, Anxious, Thin HEENT: PERRL/EOMI, Normal ENT Inspection, Pharynx Normal Neck: Full Range of Motion, Normal Inspection, Non Tender, Supple, Carotid Bruit Respiratory: Chest Non Tender, Lungs Clear, No Accessory Muscle Use, No Res piratory Distress, Decreased Breath Sounds Cardiovascular: Regular Rate, Rhythm, No Edema, No Gallop, No JVD, No Murmur, Normal Peripheral Pulses Gastrointestinal: Normal Bowel Sounds, No Organomegaly, No Pulsatile Mass, Non Tender, Soft Back: Normal Inspection, No CVA Tenderness, No Vertebral Tenderness Extremity: Normal Capillary Refill, Normal Inspection, Normal Range of Motion, Non Tender, No Calf Tenderness, No Pedal Edema Neurologic/Psychiatric: Alert, Oriented x3, No Motor/Sensory Deficits, Abnormal Gait, Depressed Affect, Motor Weakness (generalized all extremities) Skin: Normal Color, Warm/Dry Lymphatic: No Adenopathy Results/Procedures Lab Patient resulted labs reviewed. FIM Transfers Therapy Code Descriptions/Definitions Functional [place] Measure: 0=Not Assessed/NA 4=Minimal Assistance 1=Total Assistance 5=Supervision or Setup 2=Maximal Assistance 6=Modified [place] 3=Moderate Assistance 7=Complete IndependenceSCALE: Activities may be completed with or without assistive devices. 1-Fyyvgqbalb-gvsewsm completes the activity by him/herself with no assistance f rom a helper. 5-Set-up or Clean-up Assistance-helper sets up or cleans up; patient completes activity. [place] assists only prior to or following the activity. 4-Supervision or Touching Assistance-helper provides verbal cues and/or touching/steadying and/or contact guard assistance as patient completes activity. Assistance may be provided throughout the activity or intermittently. 3-Partial/Moderate Assistance-helper does LESS THAN HALF the effort. [place] lifts, holds or supports trunk or limbs, but provides less than half the effort. 2-Substantial/Maximal Assistance-helper does MORE THAN HALF the effort. [place] lifts or holds trunk or limbs and provides more than half the effort. 2-Wtjztglda-xrkgbh does ALL the effort. Patient does none of the effort to complete the activity. Or, the assistance of 2 or more helpers is required for the patient to complete the activity. If activity was not attempted, code reason: 7-Patient Refused. 9-Not Applicable-not attempted and the patient did not perform the activity before the current illness, exacerbation or injury. 10-Not Attempted due to Environmental Limitations-(lack of equipment, weather restraints, etc.). 88-Not Attempted due to Medical Conditions or Safety Concerns. Roll Left to Right (QC): 6 Sit to Lying (QC): 6 Sit to Stand (QC): 4 Chair/Qqw-tb-Bitqr Xfer(QC): 4 Car Transfer (QC): 88 Gait Training Distance: 20'x3 Walk 10 feet (QC): 4 Walk 50 ft with 2 Turns(QC): 88 Walk 150 ft (QC): 88 Walking 10ft/uneven surface-QC: 88 Gait Persons Needed: 1 Gait Assistive Device: FWW Wheelchair Training Wheel 50 ft with 2 turns (QC): 4 Wheel 150 ft (QC): 9 Stair Training 1 Step (curb) (QC): 88 4 Steps (QC): 88 12 Steps (QC): 88 Balance Picking up an Object (QC): 88 ADL-Treatment Eating (QC): 5 (Assist opening lemonade packet, pouring into container, and filling cup with tea. Pt then able to take a drink independently.) Oral Hygiene (QC): 5 (Set up sitting edge of bed) Shower/Bathe Self (QC): 4 (Pt able to reach all areas for sponge bath, CGA for standing to wash buttocks) Upper Body Dressing (QC): 3 (Sergei, assistance needed to pull shirt overhead due to weakness in BUE. Pt able to thread arms through shirt and adjust over trunk) Lower Body Dressing (QC): 4 (CGA, pt able to thread pants and perform pants hike. 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 Anemia s/p trach now DC Steroid maintenance Plan: IRF protocol Increase ADL independence Ambulate O2 monitoring 02/25/20: PEG tube when able to DC will DC Monitor BP and HR Monitor O2 02/26/20: Supportive care Monitor closely 02/27/20: Monitor closely BP stable Pastoral care visit 02/28/20: Insomnia treatment Monitor closely Pain management 02/29/20: Monitor insomnia Therapy Wean O2 03/01/20: Monitor O2 during exertion Insomnia treatment Remeron also helps depression 03/02/20: Monitor insomnia Continue treatment Declines pain meds for scoliosis (1) Myopathy (2) History of tracheostomy (3) Frailty (4) Cough (5) Anemia (6) COVID-19 REGIS MAGALLON DO Mar 02, 2020 10:38
--- NOTE | 2020-03-02 12:28 | Physical Therapy Daily Note ---
PT Daily Note-Current Subjective Pt laying supine in bed upon arrival. Pt agrees to PT. Pain Location: No Pain Reported Mental Status Patient Orientation: Person, Place, Time, Situation Transfers SCALE: Activities may be completed with or without assistive devices. 8-Nfiykzfbgx-vvmbhon completes the activity by him/herself with no assistance from a helper. 5-Set-up or Clean-up Assistance-helper sets up or cleans up; patient completes activity. [place] assists only prior to or following the activity. 4-Supervision or Touching Assistance-helper provides verbal cues and/or touching/steadying and/or contact guard assistance as patient completes activity. Assistance may be provided throughout the activity or intermittently. 3-Partial/Moderate Assistance-helper does LESS THAN HALF the effort. [place] lifts, holds or supports trunk or limbs, but provides less than half the effort. 2-Substantial/Maximal Assistance-helper does MORE THAN HALF the effort. [place] lifts or holds trunk or limbs and provides more than half the effort. 9-Zneioqlyr-zakkdn does ALL the effort. Patient does none of the effort to complete the activity. Or, the assistance of 2 or more helpers is required for the patient to complete the activity. If activity was not attempted, code reason: 7-Patient Refused. 9-Not Applicable-not attempted and the patient did not perform the activity be fore the current illness, exacerbation or injury. 10-Not Attempted due to Environmental Limitations-(lack of equipment, weather restraints, etc.). 88-Not Attempted due to Medical Conditions or Safety Concerns. Sit to Lying (QC): 6 Lying to Sitting/Side of Bed(Q: 6 Sit to Stand (QC): 5 Weight Bearing Right Lower Extremity: Right Full Weight Bearing Left Lower Extremity: Left Full Weight Bearing Gait Training Does the Patient Walk?: Yes Distance: 150' Walk 10 feet (QC): 4 Walk 50 ft with 2 Turns(QC): 4 Walk 150 ft (QC): 4 Gait Persons Needed: 1 Gait Assistive Device: FWW [facility] following for fatigue. Wheelchair Training Does the Pt Use a Wheelchair?: Yes Wheel 50 ft with 2 turns (QC): 5 Wheel 150 ft (QC): 5 Type of Wheelchair: Manual Exercises Standing: Hamstring curls, Heel/toe raises, Marching, Weight shifts Standing Reps: 10 (Rest break between each) NuStep Minutes: 10 NuStep Workload: 5 Treatments TF from Supine to EOB to standing. Amb. in hallway using FWW then takes RB. Uses NuStep followed by Standing EX at //bar. Due to fatigue, pt propels WCH back to room instead of walking. TF back to Supine in bed in anticipation of lunch. All needs met, call light in hand. Assessment Current Status: Good Progress Pt has gained strength and is improving mobility although still fatiguing needing occasional RB. PT Short Term Goals Short Term Goals Time Frame: Mar 09, 2020 Roll Left & Right: 6 Sit to lyin Lying to sitting on side of be: 6 Sit to stand: 6 Chair/oby-sq-iblbb transfer: 6 PT Home Health Cna Goals Home Health Cna Goals PT Home Health Cna Goals Time Frame: Mar 16, 2020 Roll Left & Right (QC): 6 Sit to Lying (QC): 6 Lying-Sitting on Side/Bed(QC): 6 Sit to Stand (QC): 6 Chair/Ype-vu-Vynpe Xfer(QC): 6 Toilet Transfer (QC): 6 Car Transfer (QC): 5 Does the Patient Walk: No and Walking Goal IS indicated Walk 10 feet (QC): 6 Walk 50ft with 2 Turns (QC): 6 Walk 150 ft (QC): 6 Walking 10ft on Uneven Surface: 6 1 Step (curb) (QC): 6 4 Steps (QC): 5 12 Steps (QC): 5 Picking up an Object (QC): 6 Does the Pt use WC or Scooter?: No Wheel 50 feet with 2 turns (QC: 9 Type: N/A Wheel 150 feet: 9 Type: N/A PT Plan Problem List Problem List: Activity Tolerance, Functional Strength Treatment/Plan Treatment Plan: Continue Plan of Care Treatment Plan: Bed Mobility, Education, Functional Activity Day, Functional Strength, Group Therapy, Gait, Safety, Therapeutic Exercise, Transfers Treatment Duration: Mar 16, 2020 Frequency: Modified Program (IRF) Estimated Hrs Per Day: Other Patient and/or Family Agrees t: Yes Safety Risks/Education Patient Education: Correct Positioning, Safety Issues Teaching Recipient: Patient Teaching Methods: Discussion Response to Teaching: Verbalize Understanding Time/GCodes Time In: 1100 Time Out: 1200 Total Billed Treatment Time: 60 Total Billed Treatment 1, GT (15m), WCH (15m) & EX x2 (30m) ALLISON CASTELLANOS ASSOCIATE DIRECTOR DATA & ANALYTICS Mar 02, 2020 12:28
--- NOTE | 2020-03-02 16:11 | NUR ---
CM/SS PATIENT CARE CONFERENCE Presented Summary for patient to read at his leisure. Patient indicated no questions and he had signed document, charted. Patient is in agreement for continued stay for rehabilitation. Lengthy hospitalization since 01/03 and with high acuity and severe debility. Making progress, patient very pleased and encouraged.
[2020-03-02 18:00] VITALS: BP 134/71
[2020-03-02 20:17] VITALS: BP 113/61
[2020-03-02] MEDS: MELATONIN 3 MG TABLET PO PRN (20:25)
[2020-03-02] MEDS: MIRTAZAPINE 15 MG (REMERON) TAB PO SCH (20:25)
[2020-03-03 06:33] VITALS: BP 132/79
[2020-03-03] MEDS: SENNA W/DOCUSATE (SENOKOT S) TABLET PO SCH ×2 (09:57→21:05)
[2020-03-03] MEDS: predniSONE 5 MG TAB PO SCH (09:57)
[2020-03-03] MEDS: FAMOTIDINE 20 MG (PEPCID) TABLET PO SCH (09:57)
[2020-03-03] MEDS: DOCUSATE SODIUM 100 MG (COLACE) CAP PO SCH ×2 (09:57→21:05)
[2020-03-03] MEDS: meTOprolol TARTRATE 50 MG (LOPRESSOR) TAB PO SCH ×2 (09:57→21:06)
[2020-03-03] MEDS: polyethylene glycoL POWDER 17 GM (MIRALAX) PACK PO SCH ×2 (09:58→21:05)
[2020-03-03] MEDS: ENOXAPARIN 40 MG/0.4 ML (LOVENOX) SYR SQ SCH (09:58)
[2020-03-03] MEDS: TRIAMCINOLONE 0.5% CR (KENALOG) 15 GM TUBE TOP SCH ×2 (09:59→21:10)
--- NOTE | 2020-03-03 09:59 | Occupational Ther Daily Note ---
OT Current Status-Daily Note Subjective Pt is sitting in recliner, agreeable to OT tx. Mental Status/Objective Patient Orientation: Person, Place, Time, Situation ADL-Treatment Therapy Code Descriptions/Definitions Functional [place] Measure: 0=Not Assessed/NA 4=Minimal Assistance 1=Total Assistance 5=Supervision or Setup 2=Maximal Assistance 6=Modified [place] 3=Moderate Assistance 7=Complete IndependenceSCALE: Activities may be completed with or without assistive devices. 7-Koqessipqc-rtkgtbe completes the activity by him/herself with no assistance from a helper. 5-Set-up or Clean-up Assistance-helper sets up or cleans up; patient completes activity. [place] assists only prior to or following the activity. 4-Supervision or Touching Assistance-helper provides verbal cues and/or touching/steadying and/or contact guard assistance as patient completes activity. Assistance may be provided throughout the activity or intermittently. 3-Partial/Moderate Assistance-helper does LESS THAN HALF the effort. [place] lifts, holds or supports trunk or limbs, but provides less than half the effort. 2-Substantial/Maximal Assistance-helper does MORE THAN HALF the effort. [place] lifts or holds trunk or limbs and provides more than half the effort. 1-Gnwkxlpfy-kfvrux does ALL the effort. Patient does none of the effort to complete the activity. Or, the assistance of 2 or more helpers is required for the patient to complete the activity. If activity was not attempted, code reason: 7-Patient Refused. 9-Not Applicable-not attempted and the patient did not perform the activity before the current illness, exacerbation or injury. 10-Not Attempted due to Environmental Limitations-(lack of equipment, weather restraints, etc.). 88-Not Attempted due to Medical Conditions or Safety Concerns. Upper Body Dressing (QC): 3 (Sergei, Pt able to thread arms through shirt, needing assisatnce with threading overhead due to opening of shirt was small. Pt able to adjust down trunk with assistance for adjusting down back) Lower Body Dressing (QC): 4 (SBA in stand for pant hike. Pt able to complete all parts.) Other Treatment Pt completed dressing at recliner, then ambulated from recliner of pt's room to therapy gym using FWW with no rest breaks, SBA with w/c follow. Pt participated in aretha activity for 5 min with a rest break at 2min, to increase BUE ROM and activity tolerance. Pt performed ring arch activity 2x through while standing, alternating arms, to increase BUE ROM and activity tolerance. Pt took frequent rest breaks by sitting in w/c or standing and taking a break. pt was reminded constantly to take a deep breath in through nose and out through mouth. Pt then complete a medium resistance theraputty exercise while sitting, with ~20 beads to work on hand strengthening, fine motor strength/coordination, and activity tolerance. Pt was returned to room by w/c and transferred from w/c to recliner using FWW. Post tx, pt sat in recliner with call light in reach and all needs met. Education OT Patient Education: Energy conservation, Modified ADL techniques, Progress toward Goal/Update tx plan, Purpose of tx/functional activities, Safety issues, W/C management Teaching Recipient: Patient Teaching Methods: Demonstration, Discussion Response to Teaching: Verbalize Understanding OT Short Term Goals Short Term Goals Time Frame: Mar 09, 2020 Eatin Oral hygiene: 5 Toileting hygiene: 4 Shower/bathe self: 4 Upper body dressin Lower body dressin Putting on/taking off footwear: 4 OT Insurance Sales Agent Goals Mcc Goals Time Frame: Mar 23, 2020 Eating (QC): 6 Oral Hygiene (QC): 6 Toileting Hygiene (QC): 6 Shower/Bathe Self (QC): 6 Upper Body Dressing (QC): 6 Lower Body Dressing (QC): 6 On/Off Footwear (QC): 6 Additional Goals: 1-Demonstrate ADL Tasks, 2-Verbalize Understanding, 3-ImproveStrength/Day 1=Demonstrate adherence to instructed precautions during ADL tasks. 2=Patient will verbalize/demonstrate understanding of assistive devices/modifications for ADL. 3=Patient will improve strength/tolerance for activity to enable patient to perform ADL's. OT Education/Plan Problem List/Assessment Assessment: Decreased Activ Tolerance, Decreased UE Strength, Impaired I ADL's, Impaired Self-Care Skills, Restricted Funct UE ROM Discharge Recommendations Plan/Recommendations: Continue POC Treatment Plan/Plan of Care Patient would benefit from OT for education, treatment and training to promote independence in ADL's, mobility, safety and/or upper extremity function for ADL's. Plan of Care: ADL Retraining, Caregiver Training, Concurrent Therapy, Functional Mobility, Group Exercise/Act as Ind, UE Funct Exercise/Act, UE Neuromus Re-Ed/Coord Treatment Duration: Mar 09, 2020 Frequency: Modified Program (IRF) Estimated Hrs Per Day: 1 hour per day Agreement: Yes Rehab Potential: Good Time/GCodes Start Time: 09:00 Stop Time: 10:00 Total Time Billed (hr/min): 60 Billed Treatment Time 1, EX (10'), FA 3 (45') FLOYD SPAIN OT Mar 03, 2020 09:59
--- NOTE | 2020-03-03 10:53 | PM&R Progress Note ---
Subjective HPI/CC On Admission Date Seen by Provider: Mar 03, 2020 Time Seen by Provider: 11:00 Subjective/Events-last exam 03/03/20: Bowels moved today Urinating pretty well Denies any significant new concerns Gaining strength 03/02/20: Bowels are moving Doing very well Dramatic improvement walking Overall no significant issues 03/01/20: Pt doing pretty well Slept well Denies any significant new issues Participating in therapy 02/29/20: Pt slept really well Doing well No pain Getting stronger Monitoring closely 02/28/20: Did not sleep well so willing to try Remeron 15mg and Melatonin Motivated Scoliosis noted Ankle weights provided to help strengthening 02/27/20: Pastoral care visited him and that was helpful given 3 immediate family members have in the past 1 month Trach and PEG dressing changes Aleven on heels Gaining strength 02/26/20: Pastoral care notified Family members 3 of them have within 2 months Tremors noted Heels sore PEG 01/26 placed 02/25/20: Wants PEG tube removed History of placement 01/27/20 No issues Up in chair today Tachycardia noted and on BB NO pain Review of Systems General: Fatigue Pulmonary: Dyspnea, Cough Neurological: Weakness Objective Exam Vital Signs Vital Signs Date Time Temp Pulse Resp B/P (MAP) Pulse Ox O2 Delivery O2 Flow Rate FiO2 03/03/20 20:30 Room Air 03/03/20 18:20 95 03/03/20 16:31 36.4 89 16 118/80 (93) Capillary Refill : General Appearance: No Apparent Distress, WD/WN, Anxious, Thin HEENT: PERRL/EOMI, Normal ENT Inspection, Pharynx Normal Neck: Full Range of Motion, Normal Inspection, Non Tender, Supple, Carotid Bruit Respiratory: Chest Non Tender, Lungs Clear, No Accessory Muscle Use, No Respiratory Distress, Decreased Breath Sounds Cardiovascular: Regular Rate, Rhythm, No Edema, No Gallop, No JVD, No Murmur, Normal Peripheral Pulses Gastrointestinal: Normal Bowel Sounds, No Organomegaly, No Pulsatile Mass, Non Tender, Soft Back: Normal Inspection, No CVA Tenderness, No Vertebral Tenderness Extremity: Normal Capillary Refill, Normal Inspection, Normal Range of Motion, Non Tender, No Calf Tenderness, No Pedal Edema Neurologic/Psychiatric: Alert, Oriented x3, No Motor/Sensory Deficits, Abnormal Gait, Depressed Affect, Motor Weakness (generalized all extremities) Skin: Normal Color, Warm/Dry Lymphatic: No Adenopathy Results/Procedures Lab Patient resulted labs reviewed. FIM Transfers Therapy Code Descriptions/Definitions Functional [place] Measure: 0=Not Assessed/NA 4=Minimal Assistance 1=Total Assistance 5=Supervision or Setup 2=Maximal Assistance 6=Modified [place] 3=Moderate Assistance 7=Complete IndependenceSCALE: Activities may be completed with or without assistive devices. 3-Sxnolfolcp-rvdsqjh completes the activity by him/herself with no assistance from a helper. 5-Set-up or Clean-up Assistance-helper sets up or cleans up; patient completes activity. [place] assists only prior to or following the activity. 4-Supervision or Touching Assistance-helper provides verbal cues and/or touching/steadying and/or contact guard assistance as patient completes activity. Assistance may be provided throughout the activity or intermittently. 3-Partial/Moderate Assistance-helper does LESS THAN HALF the effort. [place] lifts, holds or supports trunk or limbs, but provides less than half the effort. 2-Substantial/Maximal Assistance-helper does MORE THAN HALF the effort. [place] lifts or holds trunk or limbs and provides more than half the effort. 4-Uniqjocer-ucvovg does ALL the effort. Patient does none of the effort to complete the activity. Or, the assistance of 2 or more helpers is required for the patient to complete the activity. If activity was not attempted, code reason: 7-Patient Refused. 9-Not Applicable-not attempted and the patient did not perform the activity before the current illness, exacerbation or injury. 10-Not Attempted due to Environmental Limitations-(lack of equipment, weather restraints, etc.). 88-Not Attempted due to Medical Conditions or Safety Concerns. Roll Left to Right (QC): 6 Sit to Lying (QC): 6 Sit to Stand (QC): 5 Chair/Kqt-jy-Fjwlp Xfer(QC): 4 Car Transfer (QC): 88 Gait Training Does the Patient Walk?: Yes Distance: 150' Walk 10 feet (QC): 4 Walk 50 ft with 2 Turns(QC): 4 Walk 150 ft (QC): 4 Walking 10ft/uneven surface-QC: 88 Gait Persons Needed: 1 Gait Assistive Device: FWW Wheelchair Training Does the Pt Use a Wheelchair?: Yes Wheel 50 ft with 2 turns (QC): 5 Wheel 150 ft (QC): 5 Type of Wheelchair: Manual Stair Training 1 Step (curb) (QC): 88 4 Steps (QC): 88 12 Steps (QC): 88 Balance Picking up an Object (QC): 88 ADL-Treatment Eating (QC): 5 (Assist opening lemonade packet, pouring into container, and filling cup with tea. Pt then able to take a drink independently.) Oral Hygiene (QC): 5 (Set up sitting edge of bed) Shower/Bathe Self (QC): 4 (Pt able to reach all areas for sponge bath, CGA for standing to wash buttocks) Upper Body Dressing (QC): 3 (Sergei, Pt able to thread arms through shirt, needing assisatnce with threading overhead due to opening of shirt was small. Pt able to adjust down trunk with assistance for adjusting down back) Lower Body Dressing (QC): 4 (CGA, pt able to thread pants and perform pants hike. 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 Anemia s/p trach now DC Steroid maintenance Plan: IRF protocol Increase ADL independence Ambulate O2 monitoring 02/25/20: PEG tube when able to DC will DC Monitor BP and HR Monitor O2 02/26/20: Supportive care Monitor closely 02/27/20: Monitor closely BP stable Pastoral care visit 02/28/20: Insomnia treatment Monitor closely Pain management 02/29/20: Monitor insomnia Therapy Wean O2 03/01/20: Monitor O2 during exertion Insomnia treatment Remeron also helps depression 03/02/20: Monitor insomnia Continue treatment Declines pain meds for scoliosis 03/03/20: Improved ambulation Improved dyspnea Overall dramatic improvement (1) Myopathy (2) History of tracheostomy (3) Frailty (4) Cough (5) Anemia (6) COVID-19 REGIS MAGALLON DO Mar 03, 2020 10:53
--- NOTE | 2020-03-03 12:22 | Physical Therapy Daily Note ---
PT Daily Note-Current Subjective Pt laying Supine in bed upon arrival. Pt agrees to PT. Pain Location: No Pain Reported Mental Status Patient Orientation: Person, Place, Time, Situation Attachments: PEG Tube Transfers SCALE: Activities may be completed with or without assistive devices. 9-Phmxvaumlf-mjhchtb completes the activity by him/herself with no assistance from a helper. 5-Set-up or Clean-up Assistance-helper sets up or cleans up; patient completes activity. [place] assists only prior to or following the activity. 4-Supervision or Touching Assistance-helper provides verbal cues and/or touching/steadying and/or contact guard assistance as patient completes activity. Assistance may be provided throughout the activity or intermittently. 3-Partial/Moderate Assistance-helper does LESS THAN HALF the effort. [place] lifts, holds or supports trunk or limbs, but provides less than half the effort. 2-Substantial/Maximal Assistance-helper does MORE THAN HALF the effort. [place] lifts or holds trunk or limbs and provides more than half the effort. 8-Jtoahkfju-kbloib does ALL the effort. Patient does none of the effort to complete the activity. Or, the assistance of 2 or more helpers is required for the patient to complete the activity. If activity was not attempted, code reason: 7-Patient Refused. 9-Not Applicable-not attempted and the patient did not perform the activity before the current illness, exacerbation or injury. 10-Not Attempted due to Environmental Limitations-(lack of equipment, weather restraints, etc.). 88-Not Attempted due to Medical Conditions or Safety Concerns. Roll Left & Right (QC): 5 Sit to Lying (QC): 5 Lying to Sitting/Side of Bed(Q: 5 Sit to Stand (QC): 5 Weight Bearing Right Lower Extremity: Right Full Weight Bearing Left Lower Extremity: Left Full Weight Bearing Gait Training Does the Patient Walk?: Yes Distance: 150' x2 Walk 10 feet (QC): 5 Walk 50 ft with 2 Turns(QC): 5 Walk 150 ft (QC): 5 Gait Persons Needed: 1 Gait Assistive Device: FWW WC to follow for fatigue Exercises Standing: Hamstring curls, Marching, Mini squats Standing Reps: 15 NuStep Minutes: 10 NuStep Workload: 6 Treatments TF from bed to EOB to standing then amb. in hallway. After short RB, pt uses NuStep for 15m at WL 6. Pt completes a few Standing EX at //bars before walking back to room to rest. Pt TF to Supine in bed with all needs met, call light in hand and awaiting lunch. Assessment Current Status: Good Progress Pt continues to gain strength and activity tolerance daily. PT Short Term Goals Short Term Goals Time Frame: Mar 09, 2020 Roll Left & Right: 6 Sit to lyin Lying to sitting on side of be: 6 Sit to stand: 6 Chair/kix-jm-xeczp transfer: 6 PT Senior Living Goals Director Hematology Goals PT Director Hematology Goals Time Frame: Mar 16, 2020 Roll Left & Right (QC): 6 Sit to Lying (QC): 6 Lying-Sitting on Side/Bed(QC): 6 Sit to Stand (QC): 6 Chair/Xaw-jp-Rrhdu Xfer(QC): 6 Toilet Transfer (QC): 6 Car Transfer (QC): 5 Does the Patient Walk: No and Walking Goal IS indicated Walk 10 feet (QC): 6 Walk 50ft with 2 Turns (QC): 6 Walk 150 ft (QC): 6 Walking 10ft on Uneven Surface: 6 1 Step (curb) (QC): 6 4 Steps (QC): 5 12 Steps (QC): 5 Picking up an Object (QC): 6 Does the Pt use WC or Scooter?: No Wheel 50 feet with 2 turns (QC: 9 Type: N/A Wheel 150 feet: 9 Type: N/A PT Plan Problem List Problem List: Activity Tolerance, Functional Strength Treatment/Plan Treatment Plan: Continue Plan of Care Treatment Plan: Bed Mobility, Education, Functional Activity Day, Functional Strength, Group Therapy, Gait, Safety, Therapeutic Exercise, Transfers Treatment Duration: Mar 16, 2020 Frequency: Modified Program (IRF) Estimated Hrs Per Day: Other Patient and/or Family Agrees t: Yes Safety Risks/Education Patient Education: Correct Positioning, Safety Issues Teaching Recipient: Patient Teaching Methods: Discussion Response to Teaching: Verbalize Understanding Time/GCodes Time In: 1100 Time Out: 1200 Total Billed Treatment Time: 60 Total Billed Treatment 1, GT x2 (25m) & EX x2 (35m) ALLISON CASTELLANOS BUSINESS SYSTEM MANAGER Mar 03, 2020 12:22
--- NOTE | 2020-03-03 14:09 | Occupational Ther Daily Note ---
OT Current Status-Daily Note Subjective Pt sat on EOB, agreeable to OT tx. Mental Status/Objective Patient Orientation: Person, Place, Time, Situation ADL-Treatment Therapy Code Descriptions/Definitions Functional [place] Measure: 0=Not Assessed/NA 4=Minimal Assistance 1=Total Assistance 5=Supervision or Setup 2=Maximal Assistance 6=Modified [place] 3=Moderate Assistance 7=Complete IndependenceSCALE: Activities may be completed with or without assistive devices. 8-Fuozfjnddh-gttphrm completes the activity by him/herself with no assistance from a helper. 5-Set-up or Clean-up Assistance-helper sets up or cleans up; patient completes activity. [place] assists only prior to or following the activity. 4-Supervision or Touching Assistance-helper provides verbal cues and/or touching/steadying and/or contact guard assistance as patient completes activity. Assistance may be provided throughout the activity or intermittently. 3-Partial/Moderate Assistance-helper does LESS THAN HALF the effort. [place] lifts, holds or supports trunk or limbs, but provides less than half the effort. 2-Substantial/Maximal Assistance-helper does MORE THAN HALF the effort. [place] lifts or holds trunk or limbs and provides more than half the effort. 5-Sahwmpthk-llsdch does ALL the effort. Patient does none of the effort to complete the activity. Or, the assistance of 2 or more helpers is required for the patient to complete the activity. If activity was not attempted, code reason: 7-Patient Refused. 9-Not Applicable-not attempted and the patient did not perform the activity before the current illness, exacerbation or injury. 10-Not Attempted due to Environmental Limitations-(lack of equipment, weather restraints, etc.). 88-Not Attempted due to Medical Conditions or Safety Concerns. Other Treatment Pt seated EOB upon OT arrival. Pt participated in BUE exercises of x15 reps per exercise with a medium resistance theraband. The exercises consisted of shoulder flexion, elbow extension(triceps), elbow flexion(biceps), horizontal abduction/adduction. pt needed no rest break in between. Pt proceeded in an clothes pin activity to work on hand strength, activity tolerance, fine motor coordination, and functional reaching. Pt was left sitting EOB, call light in reach and all needs met. Education OT Patient Education: Energy conservation, Exercise program, Modified ADL techniques, Progress toward Goal/Update tx plan, Purpose of tx/functional activities Teaching Recipient: Patient Teaching Methods: Demonstration Response to Teaching: Verbalize Understanding OT Short Term Goals Short Term Goals Time Frame: Mar 09, 2020 Eatin Oral hygiene: 5 Toileting hygiene: 4 Shower/bathe self: 4 Upper body dressin Lower body dressin Putting on/taking off footwear: 4 OT Skilled Nursing Goals Merchandising Coordinator Goals Time Frame: Mar 23, 2020 Eating (QC): 6 Oral Hygiene (QC): 6 Toileting Hygiene (QC): 6 Shower/Bathe Self (QC): 6 Upper Body Dressing (QC): 6 Lower Body Dressing (QC): 6 On/Off Footwear (QC): 6 Additional Goals: 1-Demonstrate ADL Tasks, 2-Verbalize Understanding, 3- ImproveStrength/Day 1=Demonstrate adherence to instructed precautions during ADL tasks. 2=Patient will verbalize/demonstrate understanding of assistive devices/modifications for ADL. 3=Patient will improve strength/tolerance for activity to enable patient to perform ADL's. OT Education/Plan Problem List/Assessment Assessment: Decreased Activ Tolerance, Decreased UE Strength, Impaired Funct Balance, Impaired I ADL's, Impaired Self-Care Skills, Restricted Funct UE ROM Discharge Recommendations Plan/Recommendations: Continue POC Treatment Plan/Plan of Care Patient would benefit from OT for education, treatment and training to promote independence in ADL's, mobility, safety and/or upper extremity function for ADL's. Plan of Care: ADL Retraining, Caregiver Training, Concurrent Therapy, Functional Mobility, Group Exercise/Act as Ind, UE Funct Exercise/Act, UE Neuromus Re-Ed/Coord Treatment Duration: Mar 09, 2020 Frequency: Modified Program (IRF) Estimated Hrs Per Day: 1 hour per day Agreement: Yes Rehab Potential: Good Time/GCodes Start Time: 13:30 Stop Time: 14:00 Total Time Billed (hr/min): 30 Billed Treatment Time 1, EX (15'), FA (15') FLOYD SPAIN OT Mar 03, 2020 14:09
--- NOTE | 2020-03-03 15:29 | Physical Therapy Daily Note ---
PT Daily Note-Current Subjective Pt laying Supine in bed upon arrival. Pt agrees to PT. Pain Location: No Pain Reported Mental Status Patient Orientation: Person, Place, Time, Situation Transfers SCALE: Activities may be completed with or without assistive devices. 7-Fcgifrdjuz-lwfyssl completes the activity by him/herself with no assistance from a helper. 5-Set-up or Clean-up Assistance-helper sets up or cleans up; patient completes activity. [place] assists only prior to or following the activity. 4-Supervision or Touching Assistance-helper provides verbal cues and/or touching/steadying and/or contact guard assistance as patient completes activity. Assistance may be provided throughout the activity or intermittently. 3-Partial/Moderate Assistance-helper does LESS THAN HALF the effort. [place] lifts, holds or supports trunk or limbs, but provides less than half the effort. 2-Substantial/Maximal Assistance-helper does MORE THAN HALF the effort. [place] lifts or holds trunk or limbs and provides more than half the effort. 1-Rmealzmxm-obvuws does ALL the effort. Patient does none of the effort to complete the activity. Or, the assistance of 2 or more helpers is required for the patient to complete the activity. If activity was not attempted, code reason: 7-Patient Refused. 9-Not Applicable-not attempted and the patient did not perform the activity be fore the current illness, exacerbation or injury. 10-Not Attempted due to Environmental Limitations-(lack of equipment, weather restraints, etc.). 88-Not Attempted due to Medical Conditions or Safety Concerns. Roll Left & Right (QC): 5 Weight Bearing Right Lower Extremity: Right Full Weight Bearing Left Lower Extremity: Left Full Weight Bearing Exercises Supine Ex: Bridging, Ankle pumps, Quad Set, Glut sets, Heel Slides, Straight leg raise, Hip abd/add Supine Reps: 20 Treatments Pt completes Supine EX to aide in continued strength gain for improved standing balance. All needs met, call light in hand as pt lays Supine in bed. Assessment Current Status: Good Progress Pt continues to push self until fatigued to continue progress. PT Short Term Goals Short Term Goals Time Frame: Mar 09, 2020 Roll Left & Right: 6 Sit to lyin Lying to sitting on side of be: 6 Sit to stand: 6 Chair/smc-oc-wyosf transfer: 6 PT Sanitary Engineer Goals Mcc Goals PT Mcc Goals Time Frame: Mar 16, 2020 Roll Left & Right (QC): 6 Sit to Lying (QC): 6 Lying-Sitting on Side/Bed(QC): 6 Sit to Stand (QC): 6 Chair/Lbf-cu-Flafr Xfer(QC): 6 Toilet Transfer (QC): 6 Car Transfer (QC): 5 Does the Patient Walk: No and Walking Goal IS indicated Walk 10 feet (QC): 6 Walk 50ft with 2 Turns (QC): 6 Walk 150 ft (QC): 6 Walking 10ft on Uneven Surface: 6 1 Step (curb) (QC): 6 4 Steps (QC): 5 12 Steps (QC): 5 Picking up an Object (QC): 6 Does the Pt use WC or Scooter?: No Wheel 50 feet with 2 turns (QC: 9 Type: N/A Wheel 150 feet: 9 Type: N/A PT Plan Problem List Problem List: Activity Tolerance, Functional Strength Treatment/Plan Treatment Plan: Continue Plan of Care Treatment Plan: Bed Mobility, Education, Functional Activity Day, Functional Strength, Group Therapy, Gait, Safety, Therapeutic Exercise, Transfers Treatment Duration: Mar 16, 2020 Frequency: Modified Program (IRF) Estimated Hrs Per Day: Other Patient and/or Family Agrees t: Yes Safety Risks/Education Patient Education: Correct Positioning, Safety Issues Teaching Recipient: Patient Teaching Methods: Discussion Response to Teaching: Verbalize Understanding Time/GCodes Time In: 1405 Time Out: 1435 Total Billed Treatment Time: 30 Total Billed Treatment 1, EX x2 (30m) ALLISON CASTELLANOS PTA Mar 03, 2020 15:29
--- NOTE | 2020-03-03 15:41 | NUR ---
"RD ASSESSMENT PMHx: pneumonia; COVID-19 PT INTERACTION: Pt was awake and pleasant during nutrition follow-up. Pt states he has been eating well since last assessment. Note avg PO intake 92% x4d, per chart review. Pt states no issues with n/v/c/d since last assessment. Note last BM was 03/02, and pt currently on bowel regimen of colace BID, senna BID, and miralax BID, per chart review. Est. kcal needs: 6344-6276 kcal | 20-25 kcal/kg Est. Pro needs: 89-107 g Pro | 1.0-1.2 g Pro/kg PES STATEMENT: Given current appetite and PO intake, no nutrition diagnosis at this time (NO-1.1). INTERVENTION: Continue with current diet order of Regular diet. Will continue to follow and reassess as pt needs, intake, and status change. Caitlyn LANIER, MS RD LD [phone] cell"
[2020-03-03 16:31] VITALS: BP 118/80
[2020-03-03] MEDS: MELATONIN 3 MG TABLET PO PRN (21:05)
[2020-03-03] MEDS: MIRTAZAPINE 15 MG (REMERON) TAB PO SCH (21:05)
[2020-03-04 05:45] VITALS: BP 131/70
[2020-03-04] MEDS: FAMOTIDINE 20 MG (PEPCID) TABLET PO SCH (09:17)
[2020-03-04] MEDS: ENOXAPARIN 40 MG/0.4 ML (LOVENOX) SYR SQ SCH (09:17)
[2020-03-04] MEDS: predniSONE 5 MG TAB PO SCH (09:17)
[2020-03-04] MEDS: meTOprolol TARTRATE 50 MG (LOPRESSOR) TAB PO SCH ×2 (09:17→21:02)
[2020-03-04] MEDS: polyethylene glycoL POWDER 17 GM (MIRALAX) PACK PO SCH ×2 (09:21→21:05)
[2020-03-04] MEDS: DOCUSATE SODIUM 100 MG (COLACE) CAP PO SCH ×2 (09:21→21:05)
[2020-03-04] MEDS: SENNA W/DOCUSATE (SENOKOT S) TABLET PO SCH ×2 (09:21→21:05)
--- NOTE | 2020-03-04 10:26 | Occupational Ther Daily Note ---
OT Current Status-Daily Note Subjective Pt laying in bed, agreeable to OT tx. Mental Status/Objective Patient Orientation: Person, Place, Time, Situation ADL-Treatment Therapy Code Descriptions/Definitions Functional [place] Measure: 0=Not Assessed/NA 4=Minimal Assistance 1=Total Assistance 5=Supervision or Setup 2=Maximal Assistance 6=Modified [place] 3=Moderate Assistance 7=Complete IndependenceSCALE: Activities may be completed with or without assistive devices. 0-Sdrxaztttg-nobiazi completes the activity by him/herself with no assistance from a helper. 5-Set-up or Clean-up Assistance-helper sets up or cleans up; patient completes activity. [place] assists only prior to or following the activity. 4-Supervision or Touching Assistance-helper provides verbal cues and/or touching/steadying and/or contact guard assistance as patient completes activity. Assistance may be provided throughout the activity or intermittently. 3-Partial/Moderate Assistance-helper does LESS THAN HALF the effort. [place] lifts, holds or supports trunk or limbs, but provides less than half the effort. 2-Substantial/Maximal Assistance-helper does MORE THAN HALF the effort. [place] lifts or holds trunk or limbs and provides more than half the effort. 9-Mefgpxnyv-jajxat does ALL the effort. Patient does none of the effort to complete the activity. Or, the assistance of 2 or more helpers is required for the patient to complete the activity. If activity was not attempted, code reason: 7-Patient Refused. 9-Not Applicable-not attempted and the patient did not perform the activity before the current illness, exacerbation or injury. 10-Not Attempted due to Environmental Limitations-(lack of equipment, weather restraints, etc.). 88-Not Attempted due to Medical Conditions or Safety Concerns. Oral Hygiene (QC): 7 Shower/Bathe Self (QC): 4 (Pt able to wash/dry all parts seated on SC, supervision in stand at [facility].) Upper Body Dressing (QC): 5 (set up) Lower Body Dressing (QC): 3 (Sergei, pt able to doff Independently. Pt able to don R legs and perform pants hike while standing. Assistance to thread L leg) On/Off Footwear: 3 (pt able to doff socks and don R foot. Assistance needed for L leg) Other Treatment Pt laying in bed at beginning of tx. Pt transferred from EOB then to standing with FWW. Pt ambulated from bed to shower at SBA, FWW. Pt sat on shower bench and doffed all clothes. Pt began and finished shower at supervision. Pt donned socks with assistance with L foot and donned pants with need assistance to thread L leg through. Pt donned shirt and stood to perform pants hike. throughout dressing, pt needed frequent rest breaks. Pt transferred from shower bench to bed using FWW and ambulated at SBA. Pt sat EOB, then transferred supine with call light in reach and all needs met. Education OT Patient Education: Correct positioning, Energy conservation, Modified ADL techniques, Progress toward Goal/Update tx plan, Purpose of tx/functional activities Teaching Recipient: Patient Teaching Methods: Discussion Response to Teaching: Verbalize Understanding OT Short Term Goals Short Term Goals Time Frame: Mar 09, 2020 Eatin Oral hygiene: 5 Toileting hygiene: 4 Shower/bathe self: 4 Upper body dressin Lower body dressin Putting on/taking off footwear: 4 OT Nursing Home Goals Nursing Home Goals Time Frame: Mar 23, 2020 Eating (QC): 6 Oral Hygiene (QC): 6 Toileting Hygiene (QC): 6 Shower/Bathe Self (QC): 6 Upper Body Dressing (QC): 6 Lower Body Dressing (QC): 6 On/Off Footwear (QC): 6 Additional Goals: 1-Demonstrate ADL Tasks, 2-Verbalize Understanding, 3- ImproveStrength/Day 1=Demonstrate adherence to instructed precautions during ADL tasks. 2=Patient will verbalize/demonstrate understanding of assistive devices/modifications for ADL. 3=Patient will improve strength/tolerance for activity to enable patient to perform ADL's. OT Education/Plan Problem List/Assessment Assessment: Decreased Activ Tolerance, Decreased UE Strength, Impaired Funct Balance, Impaired I ADL's, Impaired Self-Care Skills, Restricted Funct UE ROM Discharge Recommendations Plan/Recommendations: Continue POC Treatment Plan/Plan of Care Patient would benefit from OT for education, treatment and training to promote independence in ADL's, mobility, safety and/or upper extremity function for ADL's. Plan of Care: ADL Retraining, Caregiver Training, Concurrent Therapy, Functional Mobility, Group Exercise/Act as Ind, UE Funct Exercise/Act, UE Neuromus Re-Ed/Coord Treatment Duration: Mar 09, 2020 Frequency: Modified Program (IRF) Estimated Hrs Per Day: 1 hour per day Agreement: Yes Rehab Potential: Good Time/GCodes Start Time: 09:00 Stop Time: 10:00 Total Time Billed (hr/min): 60 Billed Treatment Time 1, ADL 4 FLOYD SPAIN OT Mar 04, 2020 10:26
--- NOTE | 2020-03-04 10:31 | PM&R Progress Note ---
Subjective HPI/CC On Admission Date Seen by Provider: Mar 04, 2020 Time Seen by Provider: 10:30 Subjective/Events-last exam 03/04/20: Much improved status Monitor O2 Monitor pain Walking well 03/03/20: Bowels moved today Urinating pretty well Denies any significant new concerns Gaining strength 03/02/20: Bowels are moving Doing very well Dramatic improvement walking Overall no significant issues 03/01/20: Pt doing pretty well Slept well Denies any significant new issues Participating in therapy 02/29/20: Pt slept really well Doing well No pain Getting stronger Monitoring closely 02/28/20: Did not sleep well so willing to try Remeron 15mg and Melatonin Motivated Scoliosis noted Ankle weights provided to help strengthening 02/27/20: Pastoral care visited him and that was helpful given 3 immediate family members have in the past 1 month Trach and PEG dressing changes Aleven on heels Gaining strength 02/26/20: Pastoral care notified Family members 3 of them have within 2 months Tremors noted Heels sore PEG 01/26 placed 02/25/20: Wants PEG tube removed History of placement 01/27/20 No issues Up in chair today Tachycardia noted and on BB NO pain Review of Systems General: Fatigue, Malaise Pulmonary: Dyspnea Objective Exam Vital Signs Vital Signs Date Time Temp Pulse Resp B/P (MAP) Pulse Ox O2 Delivery O2 Flow Rate FiO2 03/05/20 05:07 37.4 95 18 139/69 (92) 92 Room Air Capillary Refill : General Appearance: No Apparent Distress, WD/WN, Anxious, Thin HEENT: PERRL/EOMI, Normal ENT Inspection, Pharynx Normal Neck: Full Range of Motion, Normal Inspection, Non Tender, Supple, Carotid Bruit Respiratory: Chest Non Tender, Lungs Clear, No Accessory Muscle Use, No Respiratory Distress, Decreased Breath Sounds Cardiovascular: Regular Rate, Rhythm, No Edema, No Gallop, No JVD, No Murmur, Normal Peripheral Pulses Gastrointestinal: Normal Bowel Sounds, No Organomegaly, No Pulsatile Mass, Non Tender, Soft Back: Normal Inspection, No CVA Tenderness, No Vertebral Tenderness Extremity: Normal Capillary Refill, Normal Inspection, Normal Range of Motion, Non Tender, No Calf Tenderness, No Pedal Edema Neurologic/Psychiatric: Alert, Oriented x3, No Motor/Sensory Deficits, Abnormal Gait, Depressed Affect, Motor Weakness (generalized all extremities) Skin: Normal Color, Warm/Dry Lymphatic: No Adenopathy Results/Procedures Lab Patient resulted labs reviewed. FIM Transfers Therapy Code Descriptions/Definitions Functional [place] Measure: 0=Not Assessed/NA 4=Minimal Assistance 1=Total Assistance 5=Supervision or Setup 2=Maximal Assistance 6=Modified [place] 3=Moderate Assistance 7=Complete IndependenceSCALE: Activities may be completed with or without assistive devices. 6-Gfflfnrops-ksboctc completes the activity by him/herself with no assistance from a helper. 5-Set-up or Clean-up Assistance-helper sets up or cleans up; patient completes activity. [place] assists only prior to or following the activity. 4-Supervision or Touching Assistance-helper provides verbal cues and/or touching/steadying and/or contact guard assistance as patient completes activity. Assistance may be provided throughout the activity or intermittently. 3-Partial/Moderate Assistance-helper does LESS THAN HALF the effort. [place] lifts, holds or supports trunk or limbs, but provides less than half the effort. 2-Substantial/Maximal Assistance-helper does MORE THAN HALF the effort. [place] lifts or holds trunk or limbs and provides more than half the effort. 0-Xfyavwihv-uirzxn does ALL the effort. Patient does none of the effort to complete the activity. Or, the assistance of 2 or more helpers is required for the patient to complete the activity. If activity was not attempted, code reason: 7-Patient Refused. 9-Not Applicable-not attempted and the patient did not perform the activity before the current illness, exacerbation or injury. 10-Not Attempted due to Environmental Limitations-(lack of equipment, weather restraints, etc.). 88-Not Attempted due to Medical Conditions or Safety Concerns. Roll Left to Right (QC): 5 Sit to Lying (QC): 5 Sit to Stand (QC): 5 Chair/Fxo-ky-Tukxn Xfer(QC): 4 Car Transfer (QC): 88 Gait Training Does the Patient Walk?: Yes Distance: 150' x2 Walk 10 feet (QC): 5 Walk 50 ft with 2 Turns(QC): 5 Walk 150 ft (QC): 5 Walking 10ft/uneven surface-QC: 88 Gait Persons Needed: 1 Gait Assistive Device: FWW Wheelchair Training Does the Pt Use a Wheelchair?: Yes Wheel 50 ft with 2 turns (QC): 5 Wheel 150 ft (QC): 5 Type of Wheelchair: Manual Stair Training 1 Step (curb) (QC): 88 4 Steps (QC): 88 12 Steps (QC): 88 Balance Picking up an Object (QC): 88 ADL-Treatment Eating (QC): 5 (Assist opening lemonade packet, pouring into container, and filling cup with tea. Pt then able to take a drink independently.) Oral Hygiene (QC): 5 (Set up sitting edge of bed) Shower/Bathe Self (QC): 5 (Supervision) Upper Body Dressing (QC): 5 (Supervision) Lower Body Dressing (QC): 3 (Sergei, pt able to doff Independently. Pt able to don R legs and perform pants hike while standing. Assistance to thread L leg) On/Off Footwear (QC): 3 (pt able to doff socks and don R foot. 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 Anemia s/p trach now DC Steroid maintenance Plan: IRF protocol Increase ADL independence Ambulate O2 monitoring 02/25/20: PEG tube when able to DC will DC Monitor BP and HR Monitor O2 02/26/20: Supportive care Monitor closely 02/27/20: Monitor closely BP stable Pastoral care visit 02/28/20: Insomnia treatment Monitor closely Pain management 02/29/20: Monitor insomnia Therapy Wean O2 03/01/20: Monitor O2 during exertion Insomnia treatment Remeron also helps depression 03/02/20: Monitor insomnia Continue treatment Declines pain meds for scoliosis 03/03/20: Improved ambulation Improved dyspnea Overall dramatic improvement 03/04/20: Monitor O2 Increase ambulation (1) Myopathy (2) History of tracheostomy (3) Frailty (4) Cough (5) Anemia (6) COVID-19 REGIS MAGALLON DO Mar 04, 2020 10:31
--- NOTE | 2020-03-04 13:28 | Physical Therapy Daily Note ---
PT Daily Note-Current Subjective Patient in recliner pre tx, agrees to PT, has 8/10 back pain, needs to have a BM, will use sit to stand machine to transfer to commode. Appearance Patient in bed post tx with nurse call, phone, tray, SCD's on, in room. Mental Status Patient Orientation: Person, Place, Situation back brace Transfers SCALE: Activities may be completed with or without assistive devices. 5-Ddrqajrhqm-gkrimhn completes the activity by him/herself with no assistance from a helper. 5-Set-up or Clean-up Assistance-helper sets up or cleans up; patient completes activity. [place] assists only prior to or following the activity. 4-Supervision or Touching Assistance-helper provides verbal cues and/or touching/steadying and/or contact guard assistance as patient completes activity. Assistance may be provided throughout the activity or intermittently. 3-Partial/Moderate Assistance-helper does LESS THAN HALF the effort. [place] lifts, holds or supports trunk or limbs, but provides less than half the effort. 2-Substantial/Maximal Assistance-helper does MORE THAN HALF the effort. [place] lifts or holds trunk or limbs and provides more than half the effort. 0-Qkqbgqztj-bzyfgq does ALL the effort. Patient does none of the effort to complete the activity. Or, the assistance of 2 or more helpers is required for the patient to complete the activity. If activity was not attempted, code reason: 7-Patient Refused. 9-Not Applicable-not attempted and the patient did not perform the activity before the current illness, exacerbation or injury. 10-Not Attempted due to Environmental Limitations-(lack of equipment, weather restraints, etc.). 88-Not Attempted due to Medical Conditions or Safety Concerns. Sit to Lying (QC): 1 Sit to Stand (QC): 1 Weight Bearing Right Lower Extremity: Right Full Weight Bearing Left Lower Extremity: Left Full Weight Bearing Exercises Supine Ex: Ankle pumps, Quad Set, Glut sets, Heel Slides, Short Arc Quads, Straight leg raise (AAROM), Hip abd/add Supine Reps: 20 Treatments bed mobility and transfers, LE exercise, toileting Assessment Current Status: Poor Progress poor motivation, no change in mobility PT Short Term Goals Short Term Goals Time Frame: Mar 09, 2020 Roll Left & Right: 6 Sit to lyin Lying to sitting on side of be: 6 Sit to stand: 6 Chair/tba-th-jbwuo transfer: 6 PT Fpc Goals Fpc Goals PT Link Trainer Mechanic Goals Time Frame: Mar 16, 2020 Roll Left & Right (QC): 6 Sit to Lying (QC): 6 Lying-Sitting on Side/Bed(QC): 6 Sit to Stand (QC): 6 Chair/Ogv-uh-Scycf Xfer(QC): 6 Toilet Transfer (QC): 6 Car Transfer (QC): 5 Does the Patient Walk: No and Walking Goal IS indicated Walk 10 feet (QC): 6 Walk 50ft with 2 Turns (QC): 6 Walk 150 ft (QC): 6 Walking 10ft on Uneven Surface: 6 1 Step (curb) (QC): 6 4 Steps (QC): 5 12 Steps (QC): 5 Picking up an Object (QC): 6 Does the Pt use WC or Scooter?: No Wheel 50 feet with 2 turns (QC: 9 Type: N/A Wheel 150 feet: 9 Type: N/A PT Plan Problem List Problem List: Activity Tolerance, Functional Strength, Safety, Balance, Gait, Transfer, Bed Mobility, ROM Treatment/Plan Treatment Plan: Continue Plan of Care Treatment Plan: Bed Mobility, Education, Functional Activity Day, Functional Strength, Group Therapy, Gait, Safety, Therapeutic Exercise, Transfers Treatment Duration: Mar 16, 2020 Frequency: Modified Program (IRF) Estimated Hrs Per Day: Other Patient and/or Family Agrees t: Yes Safety Risks/Education Patient Education: Transfer Techniques, Correct Positioning, Safety Issues Teaching Recipient: Patient Teaching Methods: Demonstration, Discussion Response to Teaching: Reinforcement Needed Time/GCodes Time In: 1300 Time Out: 1330 Total Billed Treatment Time: 30 Total Billed Treatment 1 visit FA 15' EX 15' AYSHA BLACKBURN PT Mar 04, 2020 13:27
--- NOTE | 2020-03-04 14:41 | Occupational Ther Daily Note ---
OT Current Status-Daily Note Subjective Pt describes that he wants to stay in room because he was worn out from PT this morning. With minimal encouragement, agreed to go to therapy gym for exercise. Mental Status/Objective Patient Orientation: Person, Place, Time, Situation ADL-Treatment Therapy Code Descriptions/Definitions Functional [place] Measure: 0=Not Assessed/NA 4=Minimal Assistance 1=Total Assistance 5=Supervision or Setup 2=Maximal Assistance 6=Modified [place] 3=Moderate Assistance 7=Complete IndependenceSCALE: Activities may be completed with or without assistive devices. 9-Verryketpm-cbfrhhx completes the activity by him/herself with no assistance from a helper. 5-Set-up or Clean-up Assistance-helper sets up or cleans up; patient completes activity. [place] assists only prior to or following the activity. 4-Supervision or Touching Assistance-helper provides verbal cues and/or touching/steadying and/or contact guard assistance as patient completes activity. Assistance may be provided throughout the activity or intermittently. 3-Partial/Moderate Assistance-helper does LESS THAN HALF the effort. [place] lifts, holds or supports trunk or limbs, but provides less than half the effort. 2-Substantial/Maximal Assistance-helper does MORE THAN HALF the effort. [place] lifts or holds trunk or limbs and provides more than half the effort. 3-Owipthhvp-ennscr does ALL the effort. Patient does none of the effort to complete the activity. Or, the assistance of 2 or more helpers is required for the patient to complete the activity. If activity was not attempted, code reason: 7-Patient Refused. 9-Not Applicable-not attempted and the patient did not perform the activity before the current illness, exacerbation or injury. 10-Not Attempted due to Environmental Limitations-(lack of equipment, weather restraints, etc.). 88-Not Attempted due to Medical Conditions or Safety Concerns. Oral Hygiene (QC): 5 (Set up) Other Treatment PT/OT cotreat due to skill of 2 clinicians required which a workplace rehabilitation officer could not perform in order to coordinate UE/LEs with tasks, and due to pt's limitations in standing balance, activity tolerance, mobility, and strength. OT focused on UE placement, UE exercises, and cues for sequencing/safety, PT focused on ambulation, transfers, LE placement, and dynamic standing balance. Pt began session laying in bed, then transferred to EOB sitting. Pt participated in oral care at set up. Pt stood with FWW and ambulated with FWW to therapy gym. Pt participated in medium resistance theraband exercises of the following while standing at parallel bars; shoulder flexion, elbow flexion, elbow extension, external rotation, scaption and horizontal abduction. Pt took a rest break and then stood again and participated in another standing activity to work on hand strengthening and activity tolerance. Pt placed/removed graded clothespins (1-5 lbs). Pt took a rest break and then stood and ambulated back to room with FWW. pt was left in bed with call light in reach and all needs met. Education OT Patient Education: Energy conservation, Exercise program, Modified ADL techniques, Progress toward Goal/Update tx plan, Purpose of tx/functional activities, Safety issues, Transfer techniques Teaching Recipient: Patient Teaching Methods: Discussion Response to Teaching: Verbalize Understanding OT Short Term Goals Short Term Goals Time Frame: Mar 09, 2020 Eatin Oral hygiene: 5 Toileting hygiene: 4 Shower/bathe self: 4 Upper body dressin Lower body dressin Putting on/taking off footwear: 4 OT [place] Worker Goals Shelter Goals Time Frame: Mar 23, 2020 Eating (QC): 6 Oral Hygiene (QC): 6 Toileting Hygiene (QC): 6 Shower/Bathe Self (QC): 6 Upper Body Dressing (QC): 6 Lower Body Dressing (QC): 6 On/Off Footwear (QC): 6 Additional Goals: 1-Demonstrate ADL Tasks, 2-Verbalize Understanding, 3- ImproveStrength/Day 1=Demonstrate adherence to instructed precautions during ADL tasks. 2=Patient will verbalize/demonstrate understanding of assistive devices/modifications for ADL. 3=Patient will improve strength/tolerance for activity to enable patient to perform ADL's. OT Education/Plan Problem List/Assessment Assessment: Decreased Activ Tolerance, Decreased UE Strength, Impaired Funct Balance, Impaired I ADL's, Impaired Self-Care Skills, Restricted Funct UE ROM Discharge Recommendations Plan/Recommendations: Continue POC Treatment Plan/Plan of Care Patient would benefit from OT for education, treatment and training to promote independence in ADL's, mobility, safety and/or upper extremity function for ADL's. Plan of Care: ADL Retraining, Caregiver Training, Concurrent Therapy, Functional Mobility, Group Exercise/Act as Ind, UE Funct Exercise/Act, UE Neuromus Re-Ed/Coord Treatment Duration: Mar 09, 2020 Frequency: Modified Program (IRF) Estimated Hrs Per Day: 1 hour per day Agreement: Yes Rehab Potential: Good Time/GCodes Start Time: 13:30 Stop Time: 14:00 Total Time Billed (hr/min): 15 Billed Treatment Time 1, FA (15'), EX (15') FLOYD SPAIN OT Mar 04, 2020 14:41
--- NOTE | 2020-03-04 14:47 | Physical Therapy Daily Note ---
PT Daily Note-Current Subjective Patient in bed pre tx, agrees to PT, has 6/10 pain in back. Appearance Patient in recliner post tx with nurse call, phone, tray, all needs met. Mental Status Patient Orientation: Normal For Age Transfers SCALE: Activities may be completed with or without assistive devices. 3-Jdpthsqpdc-xjbrdbj completes the activity by him/herself with no assistance from a helper. 5-Set-up or Clean-up Assistance-helper sets up or cleans up; patient completes activity. [place] assists only prior to or following the activity. 4-Supervision or Touching Assistance-helper provides verbal cues and/or touching/steadying and/or contact guard assistance as patient completes activity. Assistance may be provided throughout the activity or intermittently. 3-Partial/Moderate Assistance-helper does LESS THAN HALF the effort. [place] lifts, holds or supports trunk or limbs, but provides less than half the effort. 2-Substantial/Maximal Assistance-helper does MORE THAN HALF the effort. [place] lifts or holds trunk or limbs and provides more than half the effort. 2-Ncjszgrwb-jgnjpv does ALL the effort. Patient does none of the effort to complete the activity. Or, the assistance of 2 or more helpers is required for the patient to complete the activity. If activity was not attempted, code reason: 7-Patient Refused. 9-Not Applicable-not attempted and the patient did not perform the activity before the current illness, exacerbation or injury. 10-Not Attempted due to Environmental Limitations-(lack of equipment, weather restraints, etc.). 88-Not Attempted due to Medical Conditions or Safety Concerns. Roll Left & Right (QC): 6 Lying to Sitting/Side of Bed(Q: 6 Sit to Stand (QC): 4 Chair/Ixn-lo-Hmipa Xfer(QC): 4 Weight Bearing Right Lower Extremity: Right Full Weight Bearing Left Lower Extremity: Left Full Weight Bearing Gait Training Distance: 120'x2 Walk 10 feet (QC): 4 Walk 50 ft with 2 Turns(QC): 4 Gait Persons Needed: 1 Gait Assistive Device: FWW CGA, narrow FARSHAD, SOB during ambulation Exercises Standing: Heel/toe raises, Mini squats Standing Reps: 15 NuStep Minutes: 15 NuStep Workload: 5 Treatments bed mobility and transfers, ambulation, LE strengthening Assessment Current Status: Fair Progress improving endurance but still needs frequent rest breaks and gets SOB with activity PT Short Term Goals Short Term Goals Time Frame: Mar 09, 2020 Roll Left & Right: 6 Sit to lyin Lying to sitting on side of be: 6 Sit to stand: 6 Chair/hgd-yq-ycdxp transfer: 6 PT Husker Operator Goals Husker Operator Goals PT Shelter Goals Time Frame: Mar 16, 2020 Roll Left & Right (QC): 6 Sit to Lying (QC): 6 Lying-Sitting on Side/Bed(QC): 6 Sit to Stand (QC): 6 Chair/Die-fj-Ouuyf Xfer(QC): 6 Toilet Transfer (QC): 6 Car Transfer (QC): 5 Does the Patient Walk: No and Walking Goal IS indicated Walk 10 feet (QC): 6 Walk 50ft with 2 Turns (QC): 6 Walk 150 ft (QC): 6 Walking 10ft on Uneven Surface: 6 1 Step (curb) (QC): 6 4 Steps (QC): 5 12 Steps (QC): 5 Picking up an Object (QC): 6 Does the Pt use WC or Scooter?: No Wheel 50 feet with 2 turns (QC: 9 Type: N/A Wheel 150 feet: 9 Type: N/A PT Plan Problem List Problem List: Activity Tolerance, Functional Strength, Safety, Balance, Gait, Transfer, Bed Mobility Treatment/Plan Treatment Plan: Continue Plan of Care Treatment Plan: Bed Mobility, Education, Functional Activity Day, Functional Strength, Group Therapy, Gait, Safety, Therapeutic Exercise, Transfers Treatment Duration: Mar 16, 2020 Frequency: Modified Program (IRF) Estimated Hrs Per Day: Other Patient and/or Family Agrees t: Yes Safety Risks/Education Patient Education: Gait Training, Transfer Techniques, Correct Positioning, Safety Issues Teaching Recipient: Patient Teaching Methods: Demonstration, Discussion Response to Teaching: Reinforcement Needed Time/GCodes Time In: 1100 Time Out: 1200 Total Billed Treatment Time: 60 Total Billed Treatment 1 visit EX 30' FA 30' AYSHA BLACKBURN PT Mar 04, 2020 14:47
--- NOTE | 2020-03-04 14:57 | Physical Therapy Daily Note ---
PT Daily Note-Current Subjective Patient sitting EOB pre tx, agrees to PT, has no complaints of pain, will be co- treating with OT to work on more advanced standing activity and endurance Appearance Patient in bed post tx with nurse call, phone, tray, all needs met. Mental Status Patient Orientation: Person, Place, Situation Transfers SCALE: Activities may be completed with or without assistive devices. 7-Wyqnajwzab-mxqmavs completes the activity by him/herself with no assistance from a helper. 5-Set-up or Clean-up Assistance-helper sets up or cleans up; patient completes activity. [place] assists only prior to or following the activity. 4-Supervision or Touching Assistance-helper provides verbal cues and/or touching/steadying and/or contact guard assistance as patient completes activity. Assistance may be provided throughout the activity or intermittently. 3-Partial/Moderate Assistance-helper does LESS THAN HALF the effort. [place] lifts, holds or supports trunk or limbs, but provides less than half the effort. 2-Substantial/Maximal Assistance-helper does MORE THAN HALF the effort. [place] lifts or holds trunk or limbs and provides more than half the effort. 9-Uxnxbhuuf-ukozkx does ALL the effort. Patient does none of the effort to complete the activity. Or, the assistance of 2 or more helpers is required for the patient to complete the activity. If activity was not attempted, code reason: 7-Patient Refused. 9-Not Applicable-not attempted and the patient did not perform the activity before the current illness, exacerbation or injury. 10-Not Attempted due to Environmental Limitations-(lack of equipment, weather restraints, etc.). 88-Not Attempted due to Medical Conditions or Safety Concerns. Roll Left & Right (QC): 6 Sit to Lying (QC): 6 Sit to Stand (QC): 4 Chair/Cgz-kn-Xiagz Xfer(QC): 4 Weight Bearing Right Lower Extremity: Right Full Weight Bearing Left Lower Extremity: Left Full Weight Bearing Gait Training Distance: 120'x2 Walk 10 feet (QC): 4 Walk 50 ft with 2 Turns(QC): 4 Gait Assistive Device: FWW slow but steady ambulation, SOB, narrow FARSHAD Exercises standing at the side of parallel bars x2 working on UE strengthening activities Treatments PT worked on bed mobility and transfers, ambulation, standing and endurance, OT worked on UE positioning and safety during activity, UE strengthening Assessment Current Status: Fair Progress improving endurance PT Short Term Goals Short Term Goals Time Frame: Mar 09, 2020 Roll Left & Right: 6 Sit to lyin Lying to sitting on side of be: 6 Sit to stand: 6 Chair/dxm-id-gqlyu transfer: 6 PT Senior Care Goals Packaging Line Attendant Goals PT Packaging Line Attendant Goals Time Frame: Mar 16, 2020 Roll Left & Right (QC): 6 Sit to Lying (QC): 6 Lying-Sitting on Side/Bed(QC): 6 Sit to Stand (QC): 6 Chair/Vup-hf-Hgpvc Xfer(QC): 6 Toilet Transfer (QC): 6 Car Transfer (QC): 5 Does the Patient Walk: No and Walking Goal IS indicated Walk 10 feet (QC): 6 Walk 50ft with 2 Turns (QC): 6 Walk 150 ft (QC): 6 Walking 10ft on Uneven Surface: 6 1 Step (curb) (QC): 6 4 Steps (QC): 5 12 Steps (QC): 5 Picking up an Object (QC): 6 Does the Pt use WC or Scooter?: No Wheel 50 feet with 2 turns (QC: 9 Type: N/A Wheel 150 feet: 9 Type: N/A PT Plan Problem List Problem List: Activity Tolerance, Functional Strength, Safety, Balance, Gait, Transfer Treatment/Plan Treatment Plan: Continue Plan of Care Treatment Plan: Bed Mobility, Education, Functional Activity Day, Functional Strength, Group Therapy, Gait, Safety, Therapeutic Exercise, Transfers Treatment Duration: Mar 16, 2020 Frequency: Modified Program (IRF) Estimated Hrs Per Day: Other Patient and/or Family Agrees t: Yes Safety Risks/Education Patient Education: Gait Training, Transfer Techniques, Correct Positioning, Safety Issues Teaching Recipient: Patient Teaching Methods: Demonstration, Discussion Response to Teaching: Reinforcement Needed Time/GCodes Time In: 1330 Time Out: 1400 Total Billed Treatment Time: 30 Total Billed Treatment FA 30' AYSHA BLACKBURN PT Mar 04, 2020 14:57
[2020-03-04 16:22] VITALS: BP 116/77
[2020-03-04] MEDS: MIRTAZAPINE 15 MG (REMERON) TAB PO SCH (21:02)
[2020-03-05 05:07] VITALS: BP 139/69
--- NOTE | 2020-03-05 06:01 | PM&R Progress Note ---
Subjective HPI/CC On Admission Date Seen by Provider: Mar 05, 2020 Time Seen by Provider: 13:30 Subjective/Events-last exam 03/05/20: Patient is doing well Ambulating well Talked about COVID a lot today and his hospital course prior to coming here 03/04/20: Much improved status Monitor O2 Monitor pain Walking well 03/03/20: Bowels moved today Urinating pretty well Denies any significant new concerns Gaining strength 03/02/20: Bowels are moving Doing very well Dramatic improvement walking Overall no significant issues 03/01/20: Pt doing pretty well Slept well Denies any significant new issues Participating in therapy 02/29/20: Pt slept really well Doing well No pain Getting stronger Monitoring closely 02/28/20: Did not sleep well so willing to try Remeron 15mg and Melatonin Motivated Scoliosis noted Ankle weights provided to help strengthening 02/27/20: Pastoral care visited him and that was helpful given 3 immediate family members have in the past 1 month Trach and PEG dressing changes Aleven on heels Gaining strength 02/26/20: Pastoral care notified Family members 3 of them have within 2 months Tremors noted Heels sore PEG 01/26 placed 02/25/20: Wants PEG tube removed History of placement 01/27/20 No issues Up in chair today Tachycardia noted and on BB NO pain Review of Systems Pulmonary: Dyspnea Neurological: Weakness Objective Exam Vital Signs Vital Signs Date Time Temp Pulse Resp B/P (MAP) Pulse Ox O2 Delivery O2 Flow Rate FiO2 03/06/20 06:42 36.4 88 18 129/79 (96) 96 Nasal Cannula 1.00 Capillary Refill : General Appearance: No Apparent Distress, WD/WN, Anxious, Thin HEENT: PERRL/EOMI, Normal ENT Inspection, Pharynx Normal Neck: Full Range of Motion, Normal Inspection, Non Tender, Supple, Carotid Bruit Respiratory: Chest Non Tender, Lungs Clear, No Accessory Muscle Use, No Respiratory Distress, Decreased Breath Sounds Cardiovascular: Regular Rate, Rhythm, No Edema, No Gallop, No JVD, No Murmur, Normal Peripheral Pulses Gastrointestinal: Normal Bowel Sounds, No Organomegaly, No Pulsatile Mass, Non Tender, Soft Back: Normal Inspection, No CVA Tenderness, No Vertebral Tenderness Extremity: Normal Capillary Refill, Normal Inspection, Normal Range of Motion, Non Tender, No Calf Tenderness, No Pedal Edema Neurologic/Psychiatric: Alert, Oriented x3, No Motor/Sensory Deficits, Abnormal Gait, Depressed Affect, Motor Weakness (generalized all extremities) Skin: Normal Color, Warm/Dry Lymphatic: No Adenopathy Results/Procedures Lab Patient resulted labs reviewed. [facility] Transfers Therapy Code Descriptions/Definitions Functional [place] Measure: 0=Not Assessed/NA 4=Minimal Assistance 1=Total Assistance 5=Supervision or Setup 2=Maximal Assistance 6=Modified [place] 3=Moderate Assistance 7=Complete IndependenceSCALE: Activities may be completed with or without assistive devices. 0-Vjliduimac-sawxeji completes the activity by him/herself with no assistance from a helper. 5-Set-up or Clean-up Assistance-helper sets up or cleans up; patient completes activity. [place] assists only prior to or following the activity. 4-Supervision or Touching Assistance-helper provides verbal cues and/or touching/steadying and/or contact guard assistance as patient completes activity. Assistance may be provided throughout the activity or intermittently. 3-Partial/Moderate Assistance-helper does LESS THAN HALF the effort. [place] lifts, holds or supports trunk or limbs, but provides less than half the effort. 2-Substantial/Maximal Assistance-helper does MORE THAN HALF the effort. [place] lifts or holds trunk or limbs and provides more than half the effort. 0-Soxthvums-areoty does ALL the effort. Patient does none of the effort to complete the activity. Or, the assistance of 2 or more helpers is required for the patient to complete the activity. If activity was not attempted, code reason: 7-Patient Refused. 9-Not Applicable-not attempted and the patient did not perform the activity before the current illness, exacerbation or injury. 10-Not Attempted due to Environmental Limitations-(lack of equipment, weather restraints, etc.). 88-Not Attempted due to Medical Conditions or Safety Concerns. Roll Left to Right (QC): 6 Sit to Lying (QC): 6 Sit to Stand (QC): 4 Chair/Bto-yi-Gynpb Xfer(QC): 4 Car Transfer (QC): 88 Gait Training Does the Patient Walk?: Yes Distance: 120'x2 Walk 10 feet (QC): 4 Walk 50 ft with 2 Turns(QC): 4 Walk 150 ft (QC): 5 Walking 10ft/uneven surface-QC: 88 Gait Persons Needed: 1 Gait Assistive Device: FWW Wheelchair Training Does the Pt Use a Wheelchair?: Yes Wheel 50 ft with 2 turns (QC): 5 Wheel 150 ft (QC): 5 Type of Wheelchair: Manual Stair Training 1 Step (curb) (QC): 88 4 Steps (QC): 88 12 Steps (QC): 88 Balance Picking up an Object (QC): 88 ADL-Treatment Eating (QC): 5 (Assist opening lemonade packet, pouring into container, and filling cup with tea. Pt then able to take a drink independently.) Oral Hygiene (QC): 5 (Set up) Shower/Bathe Self (QC): 4 (Pt able to wash/dry all parts seated on SC, supervision in stand at [facility].) Upper Body Dressing (QC): 5 (set up) Lower Body Dressing (QC): 3 (Sergei, pt able to doff Independently. Pt able to don R legs and perform pants hike while standing. Assistance to thread L leg) On/Off Footwear (QC): 3 (pt able to doff socks and don R foot. 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 Anemia s/p trach now DC Steroids tapered Scoliosis Plan: IRF protocol Increase ADL independence Ambulate O2 monitoring 02/25/20: PEG tube when able to DC will DC Monitor BP and HR Monitor O2 02/26/20: Supportive care Monitor closely 02/27/20: Monitor closely BP stable Pastoral care visit 02/28/20: Insomnia treatment Monitor closely Pain management 02/29/20: Monitor insomnia Therapy Wean O2 03/01/20: Monitor O2 during exertion Insomnia treatment Remeron also helps depression 03/02/20: Monitor insomnia Continue treatment Declines pain meds for scoliosis 03/03/20: Improved ambulation Improved dyspnea Overall dramatic improvement 03/04/20: Monitor O2 Increase ambulation 03/05/20: Ambulate O2 (1) Myopathy (2) History of tracheostomy (3) Frailty (4) Cough (5) Anemia (6) COVID-19 REGIS MAGALLON DO Mar 05, 2020 06:01
[2020-03-05] MEDS: ENOXAPARIN 40 MG/0.4 ML (LOVENOX) SYR SQ SCH (08:27)
[2020-03-05] MEDS: meTOprolol TARTRATE 50 MG (LOPRESSOR) TAB PO SCH ×2 (08:28→21:11)
[2020-03-05] MEDS: predniSONE 5 MG TAB PO SCH (08:28)
[2020-03-05] MEDS: FAMOTIDINE 20 MG (PEPCID) TABLET PO SCH (08:28)
[2020-03-05] MEDS: SENNA W/DOCUSATE (SENOKOT S) TABLET PO SCH ×2 (08:36→21:14)
[2020-03-05] MEDS: polyethylene glycoL POWDER 17 GM (MIRALAX) PACK PO SCH ×2 (08:36→21:14)
[2020-03-05] MEDS: DOCUSATE SODIUM 100 MG (COLACE) CAP PO SCH ×2 (08:36→21:14)
--- NOTE | 2020-03-05 11:48 | Physical Therapy Daily Note ---
PT Daily Note-Current Subjective Agrees to PT this date. Reports he feels a little down today, mentions his mother, sister and brother. He declined need for counseling services. Transfers SCALE: Activities may be completed with or without assistive devices. 1-Hbvmxgjoqg-mxorrel completes the activity by him/herself with no assistance from a helper. 5-Set-up or Clean-up Assistance-helper sets up or cleans up; patient completes activity. [place] assists only prior to or following the activity. 4-Supervision or Touching Assistance-helper provides verbal cues and/or touching/steadying and/or contact guard assistance as patient completes activity. Assistance may be provided throughout the activity or intermittently. 3-Partial/Moderate Assistance-helper does LESS THAN HALF the effort. [place] lifts, holds or supports trunk or limbs, but provides less than half the effort. 2-Substantial/Maximal Assistance-helper does MORE THAN HALF the effort. [place] lifts or holds trunk or limbs and provides more than half the effort. 3-Rjbmacxba-mvatql does ALL the effort. Patient does none of the effort to complete the activity. Or, the assistance of 2 or more helpers is required for the patient to complete the activity. If activity was not attempted, code reason: 7-Patient Refused. 9-Not Applicable-not attempted and the patient did not perform the activity before the current illness, exacerbation or injury. 10-Not Attempted due to Environmental Limitations-(lack of equipment, weather restraints, etc.). 88-Not Attempted due to Medical Conditions or Safety Concerns. Sit to Lying (QC): 5 Lying to Sitting/Side of Bed(Q: 5 Sit to Stand (QC): 4 Chair/Zfl-dl-Qtbna Xfer(QC): 4 Weight Bearing Right Lower Extremity: Right Full Weight Bearing Left Lower Extremity: Left Full Weight Bearing Gait Training Walk 150 ft (QC): 3 (CGA for safety) Gait Assistive Device: FWW 150 ft x 2 with FWW with CGA; decreased velocity, but safe and steady. Exercises NuStep Minutes: 15 NuStep Workload: 5 (Fct strength and activity tolerance progression to improve transfers and gait for increased level of indep. ) Assessment Current Status: Good Progress Transfers and gait are improving. Strength progressing with increased [place] to functional activity levels. PT Short Term Goals Short Term Goals Time Frame: Mar 09, 2020 Roll Left & Right: 6 Sit to lyin Lying to sitting on side of be: 6 Sit to stand: 6 Chair/fcv-bm-mhmaq transfer: 6 PT Shelter Goals Shelter Goals PT Director Pharmaceutical Goals Time Frame: Mar 16, 2020 Roll Left & Right (QC): 6 Sit to Lying (QC): 6 Lying-Sitting on Side/Bed(QC): 6 Sit to Stand (QC): 6 Chair/Qoj-pd-Pkzft Xfer(QC): 6 Toilet Transfer (QC): 6 Car Transfer (QC): 5 Does the Patient Walk: No and Walking Goal IS indicated Walk 10 feet (QC): 6 Walk 50ft with 2 Turns (QC): 6 Walk 150 ft (QC): 6 Walking 10ft on Uneven Surface: 6 1 Step (curb) (QC): 6 4 Steps (QC): 5 12 Steps (QC): 5 Picking up an Object (QC): 6 Does the Pt use WC or Scooter?: No Wheel 50 feet with 2 turns (QC: 9 Type: N/A Wheel 150 feet: 9 Type: N/A PT Plan Problem List Problem List: Activity Tolerance, Functional Strength, Safety Treatment/Plan Treatment Plan: Continue Plan of Care Treatment Plan: Bed Mobility, Education, Functional Activity Day, Functional Strength, Group Therapy, Gait, Safety, Therapeutic Exercise, Transfers Treatment Duration: Mar 16, 2020 Frequency: Modified Program (IRF) Estimated Hrs Per Day: Other Patient and/or Family Agrees t: Yes Safety Risks/Education Patient Education: Gait Training Teaching Recipient: Patient Teaching Methods: Discussion Response to Teaching: Return Demonstration Time/GCodes Time In: 910 Time Out: 940 Total Billed Treatment Time: 30 Total Billed Treatment visit EX 15 Gt 15 MILES MEZA PT Mar 05, 2020 11:48
[2020-03-05] MEDS: guaiFENesin/CODEINE (ROBITUSSIN AC) 10ML UDC PO PRN (16:03)
[2020-03-05 17:46] VITALS: BP 110/66
--- NOTE | 2020-03-05 17:56 | NUR ---
Noted oxygen saturations to be 86-90% at time of VS being taken. Patient assisted to reposition and Incentive Spirometry encouraged. Oxygen Saturations continued to be 86-90%. Oxygen applied at 1 L. Oxygen Saturations increased to 95%
[2020-03-05] MEDS: MIRTAZAPINE 15 MG (REMERON) TAB PO SCH (21:11)
[2020-03-06 06:42] VITALS: BP 129/79
[2020-03-06] MEDS: meTOprolol TARTRATE 50 MG (LOPRESSOR) TAB PO SCH ×2 (08:52→21:05)
[2020-03-06] MEDS: FAMOTIDINE 20 MG (PEPCID) TABLET PO SCH (08:52)
[2020-03-06] MEDS: predniSONE 5 MG TAB PO SCH (08:52)
[2020-03-06] MEDS: ENOXAPARIN 40 MG/0.4 ML (LOVENOX) SYR SQ SCH (08:52)
[2020-03-06] MEDS: polyethylene glycoL POWDER 17 GM (MIRALAX) PACK PO SCH ×2 (08:57→21:05)
[2020-03-06] MEDS: SENNA W/DOCUSATE (SENOKOT S) TABLET PO SCH ×2 (08:57→21:04)
[2020-03-06] MEDS: DOCUSATE SODIUM 100 MG (COLACE) CAP PO SCH ×2 (08:57→21:05)
--- NOTE | 2020-03-06 11:44 | PM&R Progress Note ---
Subjective HPI/CC On Admission Date Seen by Provider: Mar 06, 2020 Time Seen by Provider: 11:30 Subjective/Events-last exam 03/06/20: [place] like he has a "cold" Noted O2 requirements now 1L/min CXR revealed COVID lungs Difficult to say whether he has bacterial PNA superimposed Labs checked Increase steroids Added bronchitis abx 03/05/20: Patient is doing well Ambulating well Talked about COVID a lot today and his hospital course prior to coming here 03/04/20: Much improved status Monitor O2 Monitor pain Walking well 03/03/20: Bowels moved today Urinating pretty well Denies any significant new concerns Gaining strength 03/02/20: Bowels are moving Doing very well Dramatic improvement walking Overall no significant issues 03/01/20: Pt doing pretty well Slept well Denies any significant new issues Participating in therapy 02/29/20: Pt slept really well Doing well No pain Getting stronger Monitoring closely 02/28/20: Did not sleep well so willing to try Remeron 15mg and Melatonin Motivated Scoliosis noted Ankle weights provided to help strengthening 02/27/20: Pastoral care visited him and that was helpful given 3 immediate family members have in the past 1 month Trach and PEG dressing changes Aleven on heels Gaining strength 02/26/20: Pastoral care notified Family members 3 of them have within 2 months Tremors noted Heels sore PEG 01/26 placed 02/25/20: Wants PEG tube removed History of placement 01/27/20 No issues Up in chair today Tachycardia noted and on BB NO pain Review of Systems General: Fatigue Pulmonary: Dyspnea, Cough Focused Exam Lactate Level 03/06/20 15:47: Lactic Acid Level 2.00 Objective Exam Vital Signs Vital Signs Date Time Temp Pulse Resp B/P (MAP) Pulse Ox O2 Delivery O2 Flow Rate FiO2 03/06/20 18:18 90 Room Air 03/06/20 18:01 36.8 97 16 117/75 (89) 1.00 Capillary Refill : General Appearance: No Apparent Distress, WD/WN, Anxious, Thin HEENT: PERRL/EOMI, Normal ENT Inspection, Pharynx Normal Neck: Full Range of Motion, Normal Inspection, Non Tender, Supple, Carotid Bruit Respiratory: Chest Non Tender, Lungs Clear, No Accessory Muscle Use, No Respiratory Distress, Decreased Breath Sounds Cardiovascular: Regular Rate, Rhythm, No Edema, No Gallop, No JVD, No Murmur, Normal Peripheral Pulses Gastrointestinal: Normal Bowel Sounds, No Organomegaly, No Pulsatile Mass, Non Tender, Soft Back: Normal Inspection, No CVA Tenderness, No Vertebral Tenderness Extremity: Normal Capillary Refill, Normal Inspection, Normal Range of Motion, Non Tender, No Calf Tenderness, No Pedal Edema Neurologic/Psychiatric: Alert, Oriented x3, No Motor/Sensory Deficits, Abnormal Gait, Depressed Affect, Motor Weakness (generalized all extremities) Skin: Normal Color, Warm/Dry Lymphatic: No Adenopathy Results/Procedures Lab Laboratory Tests 03/06/20 15:47 Patient resulted labs reviewed. FIM Transfers Therapy Code Descriptions/Definitions Functional [place] Measure: 0=Not Assessed/NA 4=Minimal Assistance 1=Total Assistance 5=Supervision or Setup 2=Maximal Assistance 6=Modified [place] 3=Moderate Assistance 7=Complete IndependenceSCALE: Activities may be completed with or without assistive devices. 9-Wznoxlncux-cskklnm completes the activity by him/herself with no assistance from a helper. 5-Set-up or Clean-up Assistance-helper sets up or cleans up; patient completes activity. [place] assists only prior to or following the activity. 4-Supervision or Touching Assistance-helper provides verbal cues and/or touching/steadying and/or contact guard assistance as patient completes activity. Assistance may be provided throughout the activity or intermittently. 3-Partial/Moderate Assistance-helper does LESS THAN HALF the effort. [place] lifts, holds or supports trunk or limbs, but provides less than half the effort. 2-Substantial/Maximal Assistance-helper does MORE THAN HALF the effort. [place] lifts or holds trunk or limbs and provides more than half the effort. 7-Zglfwjvny-kjjcei does ALL the effort. Patient does none of the effort to complete the activity. Or, the assistance of 2 or more helpers is required for the patient to complete the activity. If activity was not attempted, code reason: 7-Patient Refused. 9-Not Applicable-not attempted and the patient did not perform the activity before the current illness, exacerbation or injury. 10-Not Attempted due to Environmental Limitations-(lack of equipment, weather restraints, etc.). 88-Not Attempted due to Medical Conditions or Safety Concerns. Roll Left to Right (QC): 6 Sit to Lying (QC): 5 Sit to Stand (QC): 4 Chair/Ufj-sv-Clyke Xfer(QC): 4 Car Transfer (QC): 88 Gait Training Does the Patient Walk?: Yes Distance: 120'x2 Walk 10 feet (QC): 4 Walk 50 ft with 2 Turns(QC): 4 Walk 150 ft (QC): 3 (CGA for safety) Walking 10ft/uneven surface-QC: 88 Gait Persons Needed: 1 Gait Assistive Device: FWW Wheelchair Training Does the Pt Use a Wheelchair?: Yes Wheel 50 ft with 2 turns (QC): 5 Wheel 150 ft (QC): 5 Type of Wheelchair: Manual Stair Training 1 Step (curb) (QC): 88 4 Steps (QC): 88 12 Steps (QC): 88 Balance Picking up an Object (QC): 88 ADL-Treatment Eating (QC): 5 (Assist opening lemonade packet, pouring into container, and filling cup with tea. Pt then able to take a drink independently.) Oral Hygiene (QC): 5 (Set up) Shower/Bathe Self (QC): 4 (Pt able to wash/dry all parts seated on CT, supervision in stand at [facility].) Upper Body Dressing (QC): 5 (set up) Lower Body Dressing (QC): 3 (Sergei, pt able to doff Independently. Pt able to don R legs and perform pants hike while standing. Assistance to thread L leg) On/Off Footwear (QC): 3 (pt able to doff socks and don R foot. 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 Anemia s/p trach now DC Steroids tapered Scoliosis Plan: IRF protocol Increase ADL independence Ambulate O2 monitoring 02/25/20: PEG tube when able to DC will DC Monitor BP and HR Monitor O2 02/26/20: Supportive care Monitor closely 02/27/20: Monitor closely BP stable Pastoral care visit 02/28/20: Insomnia treatment Monitor closely Pain management 02/29/20: Monitor insomnia Therapy Wean O2 03/01/20: Monitor O2 during exertion Insomnia treatment Remeron also helps depression 03/02/20: Monitor insomnia Continue treatment Declines pain meds for scoliosis 03/03/20: Improved ambulation Improved dyspnea Overall dramatic improvement 03/04/20: Monitor O2 Increase ambulation 03/05/20: Ambulate O2 03/06/20: Increase steroid dose Abx Monitor O2 Labs (1) Myopathy (2) History of tracheostomy (3) Frailty (4) Cough (5) Anemia (6) COVID-19 REGIS MAGALLON DO Mar 06, 2020 11:44
[2020-03-06] MEDS ORDERED: methylPREDNISolone 40 MG/ML (Solu-MEDROL) VIAL IM NR (12:00)
[2020-03-06 13:20] VITALS: BP 122/79
--- NOTE | 2020-03-06 13:26 | Diagnostic Imaging Report ---
INDICATION: Dyspnea. PA and lateral views were obtained FINDINGS: There is right convexity thoracic scoliosis. There is mild cardiomegaly. Patchy bilateral pulmonary infiltrates. No pleural effusion or pneumothorax. Mediastinum is unremarkable. IMPRESSION: Patchy bibasilar infiltrates suspect for pneumonia, possibly COVID. Recommend clinical correlation. Some underlying central pulmonary venous congestion cannot be excluded. Right convexity thoracic scoliosis. Dictated by: Dictated on workstation # [id number]
[2020-03-06] MEDS ORDERED: CEFDINIR 300 MG (OMNICEF) CAP PO NR (15:30)
[2020-03-06 15:54] LABS: BASOPHILS # (AUTO) 0.1 10^3/uL (0.0-0.1); BASOPHILS % (AUTO) 1 % (0-10); EOSINOPHILS # (AUTO) 0.3 10^3/uL (0.0-0.3); EOSINOPHILS % (AUTO) 3 % (0-10); HEMATOCRIT 37 % (40-54); HEMOGLOBIN 11.6 g/dL (13.3-17.7); LYMPHOCYTES # (AUTO) 1.8 10^3/uL (1.0-4.0); LYMPHOCYTES % (AUTO) 17 % (12-44); MEAN CORPUSCULAR HEMOGLOBIN 30 pg (25-34); MEAN CORPUSCULAR HGB CONC 32 g/dL (32-36); MEAN CORPUSCULAR VOLUME 96 fL (80-99); MEAN PLATELET VOLUME 10.3 fL (9.0-12.2); MONOCYTES # (AUTO) 0.3 10^3/uL (0.0-1.0); MONOCYTES % (AUTO) 3 % (0-12); NEUTROPHILS % (AUTO) 76 % (42-75); PLATELET COUNT 214 10^3/uL (130-400); WHITE BLOOD COUNT 10.4 10^3/uL (4.3-11.0)
[2020-03-06 16:14] LABS: ALANINE AMINOTRANSFERASE 39 U/L (0-55); ALBUMIN 3.5 GM/DL (3.2-4.5); ALKALINE PHOSPHATASE 89 U/L (40-136); BILIRUBIN,TOTAL 0.3 MG/DL (0.1-1.0); BUN/CREATININE RATIO 8; CALCIUM 8.7 MG/DL (8.5-10.1); CARBON DIOXIDE 22 MMOL/L (21-32); CHLORIDE 103 MMOL/L (98-107); CREATININE SERUM 1.05 MG/DL (0.60-1.30); GFR ESTIMATED > 60; GLUCOSE 101 MG/DL (70-105); POTASSIUM 4.2 MMOL/L (3.6-5.0); SODIUM 138 MMOL/L (135-145); TOTAL PROTEIN 6.7 GM/DL (6.4-8.2)
[2020-03-06 18:01] VITALS: BP 117/75
[2020-03-06] MEDS: ADVAIR HFA 115/21 MCG INHALER 8 GM IH SCH (18:18)
[2020-03-06] MEDS: CEFDINIR 300 MG (OMNICEF) CAP PO SCH (21:05)
[2020-03-06] MEDS: MIRTAZAPINE 15 MG (REMERON) TAB PO SCH (21:05)
[2020-03-07 06:00] VITALS: BP 122/79
[2020-03-07] MEDS: predniSONE 20 MG TAB PO SCH (06:08)
--- NOTE | 2020-03-07 08:39 | PM&R Progress Note ---
Subjective HPI/CC On Admission Date Seen by Provider: Mar 07, 2020 Time Seen by Provider: 08:30 Subjective/Events-last exam 03/07/20: Pt still having a lot of SOB Requiring oxygen CT scan shows Covid lungs Consulting Dr. Riddhi SHIRLEY ordered Steroids will continue 03/06/20: [place] like he has a "cold" Noted O2 requirements now 1L/min CXR revealed COVID lungs Difficult to say whether he has bacterial PNA superimposed Labs checked Increase steroids Added bronchitis abx 03/05/20: Patient is doing well Ambulating well Talked about COVID a lot today and his hospital course prior to coming here 03/04/20: Much improved status Monitor O2 Monitor pain Walking well 03/03/20: Bowels moved today Urinating pretty well Denies any significant new concerns Gaining strength 03/02/20: Bowels are moving Doing very well Dramatic improvement walking Overall no significant issues 03/01/20: Pt doing pretty well Slept well Denies any significant new issues Participating in therapy 02/29/20: Pt slept really well Doing well No pain Getting stronger Monitoring closely 02/28/20: Did not sleep well so willing to try Remeron 15mg and Melatonin Motivated Scoliosis noted Ankle weights provided to help strengthening 02/27/20: Pastoral care visited him and that was helpful given 3 immediate family members have in the past 1 month Trach and PEG dressing changes Aleven on heels Gaining strength 02/26/20: Pastoral care notified Family members 3 of them have within 2 months Tremors noted Heels sore PEG 01/26 placed 02/25/20: Wants PEG tube removed History of placement 01/27/20 No issues Up in chair today Tachycardia noted and on BB NO pain Review of Systems General: Fatigue Pulmonary: Dyspnea, Cough Focused Exam Lactate Level 03/06/20 15:47: Lactic Acid Level 2.00 Objective Exam Vital Signs Vital Signs Date Time Temp Pulse Resp B/P (MAP) Pulse Ox O2 Delivery O2 Flow Rate FiO2 03/07/20 18:40 95 Nasal Cannula 1.00 03/07/20 18:29 36.3 92 20 137/81 (99) Capillary Refill : General Appearance: No Apparent Distress, WD/WN, Anxious, Thin HEENT: PERRL/EOMI, Normal ENT Inspection, Pharynx Normal Neck: Full Range of Motion, Normal Inspection, Non Tender, Supple, Carotid Bruit Respiratory: Chest Non Tender, Lungs Clear, No Accessory Muscle Use, No Respiratory Distress, Decreased Breath Sounds Cardiovascular: Regular Rate, Rhythm, No Edema, No Gallop, No JVD, No Murmur, Normal Peripheral Pulses Gastrointestinal: Normal Bowel Sounds, No Organomegaly, No Pulsatile Mass, Non Tender, Soft Back: Normal Inspection, No CVA Tenderness, No Vertebral Tenderness Extremity: Normal Capillary Refill, Normal Inspection, Normal Range of Motion, Non Tender, No Calf Tenderness, No Pedal Edema Neurologic/Psychiatric: Alert, Oriented x3, No Motor/Sensory Deficits, Abnormal Gait, Depressed Affect, Motor Weakness (generalized all extremities) Skin: Normal Color, Warm/Dry Lymphatic: No Adenopathy Results/Procedures Lab Laboratory Tests 03/07/20 09:40 Patient resulted labs reviewed. FIM Transfers Therapy Code Descriptions/Definitions Functional [place] Measure: 0=Not Assessed/NA 4=Minimal Assistance 1=Total Assistance 5=Supervision or Setup 2=Maximal Assistance 6=Modified [place] 3=Moderate Assistance 7=Complete IndependenceSCALE: Activities may be completed with or without assistive devices. 4-Ybeahoplrd-tjdknbe completes the activity by him/herself with no assistance from a helper. 5-Set-up or Clean-up Assistance-helper sets up or cleans up; patient completes activity. [place] assists only prior to or following the activity. 4-Supervision or Touching Assistance-helper provides verbal cues and/or touching/steadying and/or contact guard assistance as patient completes activity. Assistance may be provided throughout the activity or intermittently. 3-Partial/Moderate Assistance-helper does LESS THAN HALF the effort. [place] lifts, holds or supports trunk or limbs, but provides less than half the effort. 2-Substantial/Maximal Assistance-helper does MORE THAN HALF the effort. [place] lifts or holds trunk or limbs and provides more than half the effort. 4-Acwvgszwy-tgysez does ALL the effort. Patient does none of the effort to complete the activity. Or, the assistance of 2 or more helpers is required for the patient to complete the activity. If activity was not attempted, code reason: 7-Patient Refused. 9-Not Applicable-not attempted and the patient did not perform the activity before the current illness, exacerbation or injury. 10-Not Attempted due to Environmental Limitations-(lack of equipment, weather restraints, etc.). 88-Not Attempted due to Medical Conditions or Safety Concerns. Roll Left to Right (QC): 6 Sit to Lying (QC): 5 Sit to Stand (QC): 4 Chair/Aqg-mr-Ilyeu Xfer(QC): 4 Car Transfer (QC): 88 Gait Training Does the Patient Walk?: Yes Distance: 120'x2 Walk 10 feet (QC): 4 Walk 50 ft with 2 Turns(QC): 4 Walk 150 ft (QC): 3 (CGA for safety) Walking 10ft/uneven surface-QC: 88 Gait Persons Needed: 1 Gait Assistive Device: FWW Wheelchair Training Does the Pt Use a Wheelchair?: Yes Wheel 50 ft with 2 turns (QC): 5 Wheel 150 ft (QC): 5 Type of Wheelchair: Manual Stair Training 1 Step (curb) (QC): 88 4 Steps (QC): 88 12 Steps (QC): 88 Balance Picking up an Object (QC): 88 ADL-Treatment Eating (QC): 5 (Assist opening lemonade packet, pouring into container, and filling cup with tea. Pt then able to take a drink independently.) Oral Hygiene (QC): 5 (Set up) Shower/Bathe Self (QC): 4 (Pt able to wash/dry all parts seated on PA, supervision in stand at [facility] Upper Body Dressing (QC): 5 (set up) Lower Body Dressing (QC): 3 (Sergei, pt able to doff Independently. Pt able to don R legs and perform pants hike while standing. Assistance to thread L leg) On/Off Footwear (QC): 3 (pt able to doff socks and don R foot. 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 Anemia s/p trach now DC Steroids tapered Scoliosis Plan: IRF protocol Increase ADL independence Ambulate O2 monitoring 02/25/20: PEG tube when able to DC will DC Monitor BP and HR Monitor O2 02/26/20: Supportive care Monitor closely 02/27/20: Monitor closely BP stable Pastoral care visit 02/28/20: Insomnia treatment Monitor closely Pain management 02/29/20: Monitor insomnia Therapy Wean O2 03/01/20: Monitor O2 during exertion Insomnia treatment Remeron also helps depression 03/02/20: Monitor insomnia Continue treatment Declines pain meds for scoliosis 03/03/20: Improved ambulation Improved dyspnea Overall dramatic improvement 03/04/20: Monitor O2 Increase ambulation 03/05/20: Ambulate O2 03/06/20: Increase steroid dose Abx Monitor O2 Labs 03/07/20: CT chest Abx Steroids Consult Dr Hannon (1) Myopathy (2) History of tracheostomy (3) Frailty (4) Cough (5) Anemia (6) COVID-19 REGIS MAGALLON DO Mar 07, 2020 08:38
[2020-03-07] MEDS: meTOprolol TARTRATE 50 MG (LOPRESSOR) TAB PO SCH ×2 (08:53→20:05)
[2020-03-07] MEDS: ENOXAPARIN 40 MG/0.4 ML (LOVENOX) SYR SQ SCH (08:53)
[2020-03-07] MEDS: CEFDINIR 300 MG (OMNICEF) CAP PO SCH ×2 (08:53→20:05)
[2020-03-07] MEDS: FAMOTIDINE 20 MG (PEPCID) TABLET PO SCH (08:53)
[2020-03-07] MEDS ORDERED: HOLD METFORMIN - RECEIVED CONTRAST 20 ML VIAL IV SCH (09:15)
[2020-03-07] MEDS ORDERED: IOHEXOL 350 MG/ML 100 ML (OMNIPAQUE 350) VIAL IV ONE (09:15)
[2020-03-07] MEDS ORDERED: CATHETER FLUSH 10 ML SYR IV PRN (09:15)
[2020-03-07] MEDS ORDERED: NS 100 ML (IVPB) BAG IV ONE (09:15)
[2020-03-07 09:50] LABS: BASOPHILS % (AUTO) 0 % (0-10); EOSINOPHILS % (AUTO) 0 % (0-10); HEMATOCRIT 39 % (40-54); HEMOGLOBIN 12.3 g/dL (13.3-17.7); LYMPHOCYTES # (AUTO) 1.5 X 10^3 (1.0-4.0); LYMPHOCYTES % (AUTO) 12 % (12-44); MEAN CORPUSCULAR HEMOGLOBIN 30 pg (25-34); MEAN CORPUSCULAR HGB CONC 32 g/dL (32-36); MEAN CORPUSCULAR VOLUME 95 fL (80-99); MEAN PLATELET VOLUME 10.4 fL (9.0-12.2); MONOCYTES # (AUTO) 0.3 X 10^3 (0.0-1.0); MONOCYTES % (AUTO) 3 % (0-12); NEUTROPHILS # (AUTO) 10.3 X 10^3 (1.8-7.8); NEUTROPHILS % (AUTO) 85 % (42-75); PLATELET COUNT 252 10^3/uL (130-400); WHITE BLOOD COUNT 12.2 10^3/uL (4.3-11.0)
[2020-03-07 10:04] LABS: ALANINE AMINOTRANSFERASE 46 U/L (0-55); ALBUMIN 3.9 GM/DL (3.2-4.5); ALKALINE PHOSPHATASE 93 U/L (40-136); BILIRUBIN,TOTAL 0.4 MG/DL (0.1-1.0); BUN/CREATININE RATIO 10; CALCIUM 9.5 MG/DL (8.5-10.1); CARBON DIOXIDE 20 MMOL/L (21-32); CHLORIDE 102 MMOL/L (98-107); CREATININE SERUM 1.01 MG/DL (0.60-1.30); GFR ESTIMATED > 60; GLUCOSE 117 MG/DL (70-105); POTASSIUM 4.2 MMOL/L (3.6-5.0); SODIUM 139 MMOL/L (135-145); TOTAL PROTEIN 7.6 GM/DL (6.4-8.2)
[2020-03-07] MEDS: ADVAIR HFA 115/21 MCG INHALER 8 GM IH SCH ×2 (10:21→21:23)
--- NOTE | 2020-03-07 10:37 | Diagnostic Imaging Report ---
PROCEDURE: CT angiography of the chest with contrast. TECHNIQUE: Multiple contiguous axial images were obtained through the chest after uneventful bolus administration of intravenous contrast. 3D reconstructed CTA MIP acquisitions were also performed. Auto Exposure Controls were utilized during the CT exam to meet ALARA standards for radiation dose reduction. INDICATION: Covid. Dyspnea. FINDINGS: On a technical basis, there is suboptimal opacification of the pulmonary arterial branches. No identifiable central or lobar PE. At and beyond the segmental level, luminal opacification is nondiagnostic. There were no secondary findings to suggest underlying PE. There is no evidence for elevated right heart pressures. No findings of pulmonary hemorrhage or lung infarct. This 5 lobe groundglass pulmonary opacities while nonspecific are often seen in the setting of Covid. No bullous disease, blebs or bronchiectasis. No effusion, pneumothorax or pneumomediastinum. No lung mass or thoracic lymphadenopathy. No acute chest wall pathology. There is a PEG tube in the stomach. The upper abdomen appearing nonacute. IMPRESSION: No identifiable proximal PE. 5 lobe groundglass pulmonary opacities suspicious for viral infectious etiology. Dictated by: Dictated on workstation # [id number]
--- NOTE | 2020-03-07 11:56 | Physical Therapy Daily Note ---
PT Daily Note-Current Subjective Patient in recliner pre tx, agrees to PT, has no complaints of pain, patient states he is looking forward to going home. Appearance Patient in recliner post tx with nurse call, phone, tray, all needs met. Mental Status Patient Orientation: Normal For Age Transfers SCALE: Activities may be completed with or without assistive devices. 0-Fyaxaaatqt-ckzhegy completes the activity by him/herself with no assistance from a helper. 5-Set-up or Clean-up Assistance-helper sets up or cleans up; patient completes activity. [place] assists only prior to or following the activity. 4-Supervision or Touching Assistance-helper provides verbal cues and/or touching/steadying and/or contact guard assistance as patient completes activity. Assistance may be provided throughout the activity or intermittently. 3-Partial/Moderate Assistance-helper does LESS THAN HALF the effort. [place] lifts, holds or supports trunk or limbs, but provides less than half the effort. 2-Substantial/Maximal Assistance-helper does MORE THAN HALF the effort. [place] lifts or holds trunk or limbs and provides more than half the effort. 7-Luyorsarr-pnhmgk does ALL the effort. Patient does none of the effort to complete the activity. Or, the assistance of 2 or more helpers is required for the patient to complete the activity. If activity was not attempted, code reason: 7-Patient Refused. 9-Not Applicable-not attempted and the patient did not perform the activity before the current illness, exacerbation or injury. 10-Not Attempted due to Environmental Limitations-(lack of equipment, weather restraints, etc.). 88-Not Attempted due to Medical Conditions or Safety Concerns. Sit to Stand (QC): 4 Chair/Oyb-ps-Rdbnp Xfer(QC): 4 SBA Weight Bearing Right Lower Extremity: Right Full Weight Bearing Left Lower Extremity: Left Full Weight Bearing Gait Training Distance: 120'x2 Walk 10 feet (QC): 4 Walk 50 ft with 2 Turns(QC): 4 Gait Persons Needed: 1 Gait Assistive Device: FWW SBA with a rolling walker, narrow base of support, very SOB after ambulation. Patient also ambulated back and forth in the parallel bars, without hold in onto the bars, hands hovering above the bars for a total of about 40', no LOB or knee buckling. Exercises NuStep Minutes: 15 NuStep Workload: 5 Treatments transfers, ambulation, LE strengthening Assessment Current Status: Fair Progress patient is making progress with functional mobility and strength but still has very poor endurance and gets very SOB with activity, needs frequent rest breaks PT Short Term Goals Short Term Goals Time Frame: Mar 09, 2020 Roll Left & Right: 6 Sit to lyin Lying to sitting on side of be: 6 Sit to stand: 6 Chair/ojq-el-dcnrh transfer: 6 PT Halfway Goals Liquefaction And Regasification Helper Goals PT Halfway Goals Time Frame: Mar 16, 2020 Roll Left & Right (QC): 6 Sit to Lying (QC): 6 Lying-Sitting on Side/Bed(QC): 6 Sit to Stand (QC): 6 Chair/Zpq-gb-Dwdyp Xfer(QC): 6 Toilet Transfer (QC): 6 Car Transfer (QC): 5 Does the Patient Walk: No and Walking Goal IS indicated Walk 10 feet (QC): 6 Walk 50ft with 2 Turns (QC): 6 Walk 150 ft (QC): 6 Walking 10ft on Uneven Surface: 6 1 Step (curb) (QC): 6 4 Steps (QC): 5 12 Steps (QC): 5 Picking up an Object (QC): 6 Does the Pt use WC or Scooter?: No Wheel 50 feet with 2 turns (QC: 9 Type: N/A Wheel 150 feet: 9 Type: N/A PT Plan Problem List Problem List: Activity Tolerance, Functional Strength, Safety, Balance, Gait, Transfer Treatment/Plan Treatment Plan: Continue Plan of Care Treatment Plan: Bed Mobility, Education, Functional Activity Day, Functional Strength, Group Therapy, Gait, Safety, Therapeutic Exercise, Transfers Treatment Duration: Mar 16, 2020 Frequency: Modified Program (IRF) Estimated Hrs Per Day: Other Patient and/or Family Agrees t: Yes Safety Risks/Education Patient Education: Gait Training, Transfer Techniques, Correct Positioning, Safety Issues Teaching Recipient: Patient Teaching Methods: Demonstration, Discussion Response to Teaching: Reinforcement Needed Time/GCodes Time In: 1100 Time Out: 1200 Total Billed Treatment Time: 60 Total Billed Treatment 1 visit GT 45' EX 15' AYSHA BLACKBURN PT Mar 07, 2020 11:56
[2020-03-07 12:22] LABS: ABG BASE EXCESS -1.3 MMOL/L (-2.5-2.5); ABG OXYGEN SATURATION 93 % (94-100); ABG PCO2 36 MMHG (35-45); ABG PH 7.42 (7.37-7.43); ABG PO2 64 MMHG (79-93); ABG TCO2 23.9 MMOL/L (21.0-31.0)
[2020-03-07 12:24] LABS: ALLENS TEST YES-POS
[2020-03-07 12:25] LABS: INSPIRED O2 RA; PATIENT TEMP 36.4; VENTILATOR NO
--- NOTE | 2020-03-07 12:32 | Occupational Ther Daily Note ---
OT Current Status-Daily Note Subjective Pt AxO, in bed upon entry. Pt agrees to OT tx, states slept poorly. Pt agrees to sponge bath, stating he showered yesterday. Pt denies pain, is SOB intermittently through session. 02 monitored throughout. Mental Status/Objective Patient Orientation: Person, Place, Situation, Normal For Age ADL-Treatment Therapy Code Descriptions/Definitions Functional [place] Measure: 0=Not Assessed/NA 4=Minimal Assistance 1=Total Assistance 5=Supervision or Setup 2=Maximal Assistance 6=Modified [place] 3=Moderate Assistance 7=Complete IndependenceSCALE: Activities may be completed with or without assistive devices. 2-Nmaajccphx-vwhcppv completes the activity by him/herself with no assistance from a helper. 5-Set-up or Clean-up Assistance-helper sets up or cleans up; patient completes activity. [place] assists only prior to or following the activity. 4-Supervision or Touching Assistance-helper provides verbal cues and/or touching/steadying and/or contact guard assistance as patient completes activity. Assistance may be provided throughout the activity or intermittently. 3-Partial/Moderate Assistance-helper does LESS THAN HALF the effort. [place] lifts, holds or supports trunk or limbs, but provides less than half the effort. 2-Substantial/Maximal Assistance-helper does MORE THAN HALF the effort. [place] lifts or holds trunk or limbs and provides more than half the effort. 3-Ehjhrhadd-iebcbv does ALL the effort. Patient does none of the effort to complete the activity. Or, the assistance of 2 or more helpers is required for the patient to complete the activity. If activity was not attempted, code reason: 7-Patient Refused. 9-Not Applicable-not attempted and the patient did not perform the activity before the current illness, exacerbation or injury. 10-Not Attempted due to Environmental Limitations-(lack of equipment, weather restraints, etc.). 88-Not Attempted due to Medical Conditions or Safety Concerns. Eating (QC): 6 Oral Hygiene (QC): 6 (completes with IND with items placed in front of pt.) Bathing Location: L Arm, R Arm, L Upper Leg, R Upper Leg, L Lower Leg (including foot), R Lower Leg (including foot), Chest, Abdomen, Buttocks, Perineal Area Shower/Bathe Self (QC): 4 (SUP during all tasks. Pt completes EOB, breaks for breath. ) Upper Body Dressing (QC): 5 (s/u) Lower Body Dressing (QC): 4 (SUP) On/Off Footwear: 6 (IND EOB) Toileting Hygiene (QC): 4 (SUP in stance for bottom care. ) Toilet Transfer (QC): 7 (denies needs for toileting.) Other Treatment Pt completes bed mob supine to sit with SUP. Completes all bathing/ dressing tasks EOB with SUP. Pt rests EOB post-dressing tasks, 02 monitored after bending tasks with high80's found. Pt's 1L 02 placed on pt. Able to recover after ~2 min. Pt completes ambulation to gym without rest break, pt's 02 high 60's/ low 70's. Pt educated on this, reconnected to 1L 02, recovers within 4 min to low 90's. Pt completes 2 min low resistance arm bike, 02 assessed at 88% post task, 2 min recovery to reach low 90's. Pt educated on rest breaks throughout the home/ gathering breath and knowing limits. Pt states he will only have to ambulate ~1/2 distance from room to gym while at home. Pt educated to complete rest break when ambulating back to room to prepare for this activity and check 02 levels. When ambulating back to room, pt denies break, stating he desires to go all the way. Pt is encouraged to complete break, pt denies. Sits in recliner. Pt's 02 mid 70's end of session, 1 L donned, recovers within 3 min to low 90's. Pt is educated on safety within home and COVID's role with oxygen diffusion. Pt states he knows, is again encouraged to take more rest breaks. All needs met, call light in reach. Pt in recliner end of session with 02 donned. 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 2=Patient will verbalize/demonstrate understanding of assistive devices/modifications for ADL. 3=Patient will improve strength/tolerance for activity to enable patient to perform ADL's. OT Education/Plan Problem List/Assessment Assessment: Decreased Activ Tolerance, Decreased Safety Aware, Decreased UE Strength, Dependent Transfers, Impaired I ADL's, Impaired Self-Care Skills Discharge Recommendations Plan/Recommendations: Continue POC Therapy Discharge Recommendati: Intermittent Supervision, Home & Family, Post Acute OT Treatment Plan/Plan of Care Treatment,Training & Education: Yes Patient would benefit from OT for education, treatment and training to promote independence in ADL's, mobility, safety and/or upper extremity function for ADL's. Plan of Care: ADL Retraining, Caregiver Training, Concurrent Therapy, Functional Mobility, Group Exercise/Act as Ind, UE Funct Exercise/Act, UE Neuromus Re-Ed/Coord Treatment Duration: Mar 09, 2020 Frequency: Modified Program (IRF) Estimated Hrs Per Day: 1 hour per day Agreement: Yes Rehab Potential: Good Time/GCodes Start Time: 08:00 Stop Time: 09:00 Total Time Billed (hr/min): 60 Billed Treatment Time 1, ADL 2 (30), FA (15), EX (15)= 60 MONA CASTRO OTR Mar 07, 2020 12:32
[2020-03-07] MEDS: polyethylene glycoL POWDER 17 GM (MIRALAX) PACK PO SCH ×2 (13:07→20:05)
[2020-03-07] MEDS: SENNA W/DOCUSATE (SENOKOT S) TABLET PO SCH ×2 (13:07→20:06)
[2020-03-07] MEDS: DOCUSATE SODIUM 100 MG (COLACE) CAP PO SCH ×2 (13:07→20:05)
--- NOTE | 2020-03-07 13:09 | NUR ---
Pt didn't want to take stool softeners earlier, asked to take them now
--- NOTE | 2020-03-07 13:10 | Pulmonary Consultation ---
History of Present Illness History of Present Illness Date Seen by Provider: Mar 07, 2020 Date of Admission Allergies and Home Medications Allergies Coded Allergies: No Known Drug Allergies (Unverified , 02/24/20) Home Medications No Active Prescriptions or Reported Meds Past Nritbzg-Sglslf-Altqgd Hx Past Med/Social Hx: Reviewed Nursing Past Med/Soc Hx, Reviewed and Corrections made Patient Social History Alcohol Use: Denies Use Smoking Status: Never a Smoker Have you traveled recently?: No Alcohol Use?: No Past Medical History Musculoskeletal: Yes Scoliosis Sepsis Event Evaluation Height, Weight, BMI Height: '" Weight: lbs. oz. kg; 26.00 BMI Method: Exam Exam Vital Signs Date Time Temp Pulse Resp B/P (MAP) Pulse Ox O2 Delivery O2 Flow Rate FiO2 03/07/20 10:21 95 Room Air 03/07/20 08:36 Room Air 03/07/20 06:00 36.5 94 18 122/79 (93) 93 Nasal Cannula 03/06/20 20:30 90 Room Air 03/06/20 18:18 90 Room Air 03/06/20 18:01 36.8 97 16 117/75 (89) 91 Nasal Cannula 1.00 03/06/20 13:20 90 18 122/79 (93) 90 Room Air I & O0 03/07/20 07:00 Intake Total 1300 ml Output Total 1325 ml Balance -25 ml Height & Weight Height: '" Weight: lbs. oz. kg; 26.00 BMI Method: General Appearance: No Apparent Distress, WD/WN, Anxious, Thin HEENT: PERRL/EOMI, Normal ENT Inspection, Pharynx Normal Neck: Full Range of Motion, Normal Inspection, Non Tender, Supple, Carotid Bruit Respiratory: Chest Non Tender, Lungs Clear, No Accessory Muscle Use, No Respiratory Distress, Decreased Breath Sounds Cardiovascular: Regular Rate, Rhythm, No Edema, No Gallop, No JVD, No Murmur, Normal Peripheral Pulses Extremity: Normal Capillary Refill, Normal Inspection, Normal Range of Motion, Non Tender, No Calf Tenderness, No Pedal Edema Neurologic/Psychiatric: Alert, Oriented x3, No Motor/Sensory Deficits, Abnormal Gait, Depressed Affect, Motor Weakness Skin: Normal Color, Warm/Dry Lymphatic: No Adenopathy Results Lab Laboratory Tests 03/06/20 15:47 03/07/20 09:40 Assessment/Plan Assessment/Plan recovering COVID -continue prednisone -Oxygen -Labs and CXR reviwed PNA -Continue Cefepime Debility SOFIA AUCÑA DO Mar 07, 2020 13:10
--- NOTE | 2020-03-07 13:37 | Occupational Ther Daily Note ---
OT Current Status-Daily Note Subjective Pt seated in recliner at beginning of tx, agreeable to OT tx. Mental Status/Objective Patient Orientation: Person, Place, Time, Situation ADL-Treatment Therapy Code Descriptions/Definitions Functional [place] Measure: 0=Not Assessed/NA 4=Minimal Assistance 1=Total Assistance 5=Supervision or Setup 2=Maximal Assistance 6=Modified [place] 3=Moderate Assistance 7=Complete IndependenceSCALE: Activities may be completed with or without assistive devices. 1-Wigdtrytts-oodetti completes the activity by him/herself with no assistance from a helper. 5-Set-up or Clean-up Assistance-helper sets up or cleans up; patient completes activity. [place] assists only prior to or following the activity. 4-Supervision or Touching Assistance-helper provides verbal cues and/or touching/steadying and/or contact guard assistance as patient completes activity. Assistance may be provided throughout the activity or intermittently. 3-Partial/Moderate Assistance-helper does LESS THAN HALF the effort. [place] lifts, holds or supports trunk or limbs, but provides less than half the effort. 2-Substantial/Maximal Assistance-helper does MORE THAN HALF the effort. [place] lifts or holds trunk or limbs and provides more than half the effort. 2-Yuvsxywev-pmmlyi does ALL the effort. Patient does none of the effort to complete the activity. Or, the assistance of 2 or more helpers is required for the patient to complete the activity. If activity was not attempted, code reason: 7-Patient Refused. 9-Not Applicable-not attempted and the patient did not perform the activity before the current illness, exacerbation or injury. 10-Not Attempted due to Environmental Limitations-(lack of equipment, weather restraints, etc.). 88-Not Attempted due to Medical Conditions or Safety Concerns. Other Treatment Pt began tx in recliner and ambulated to therapy gym with FWW at [facility]. Pt describes the want to get stronger and wanting to lift actual weights. In therapy gym, pt participated in exercises with 2lb at 10x reps each and did exercises 2x through with a rest break after each exercise. Pt did shoulder flexion, elbow flexion/extension, and shoulder adduction. Pt described no pain. Pt ambulated back to room with FWW at [facility]. Pt describes the want to go back home and wanting to push on with therapy. OT mentions that she does not want him to push too hard through tx and end up hurting himself or making himself sore for the next day. Pt is left with 2lb dumbbells in room as he wants. Pt ended tx seated in recliner with call light in reach and all needs met. Education OT Patient Education: Energy conservation, Exercise program, Modified ADL techniques, Progress toward Goal/Update tx plan, Purpose of tx/functional activities, Reviewed precautions, Safety issues Teaching Recipient: Patient Teaching Methods: Demonstration, Discussion Response to Teaching: Verbalize Understanding OT Short Term Goals Short Term Goals Time Frame: Mar 09, 2020 Eatin Oral hygiene: 5 Toileting hygiene: 4 Shower/bathe self: 4 Upper body dressin Lower body dressin Putting on/taking off footwear: 4 OT Correction Goals Correction Goals Time Frame: Mar 23, 2020 Eating (QC): 6 Oral Hygiene (QC): 6 Toileting Hygiene (QC): 6 Shower/Bathe Self (QC): 6 Upper Body Dressing (QC): 6 Lower Body Dressing (QC): 6 On/Off Footwear (QC): 6 Additional Goals: 1-Demonstrate ADL Tasks, 2-Verbalize Understanding, 3- ImproveStrength/Day 1=Demonstrate adherence to instructed precautions during ADL tasks. 2=Patient will verbalize/demonstrate understanding of assistive devices/modifications for ADL. 3=Patient will improve strength/tolerance for activity to enable patient to perform ADL's. OT Education/Plan Problem List/Assessment Assessment: Decreased Activ Tolerance, Decreased UE Strength, Impaired Funct Ba art, Impaired I ADL's, Impaired Self-Care Skills, Restricted Funct UE ROM Discharge Recommendations Plan/Recommendations: Continue POC Treatment Plan/Plan of Care Patient would benefit from OT for education, treatment and training to promote independence in ADL's, mobility, safety and/or upper extremity function for ADL's. Plan of Care: ADL Retraining, Caregiver Training, Concurrent Therapy, Functional Mobility, Group Exercise/Act as Ind, UE Funct Exercise/Act, UE Neuromus Re-Ed/Coord Treatment Duration: Mar 09, 2020 Frequency: Modified Program (IRF) Estimated Hrs Per Day: 1 hour per day Agreement: Yes Rehab Potential: Good Time/GCodes Start Time: 13:00 Stop Time: 13:30 Total Time Billed (hr/min): 30 Billed Treatment Time 1, EX 2 (30) FLOYD SPAIN OT Mar 07, 2020 13:37
--- NOTE | 2020-03-07 14:24 | NUR ---
Per PTVirgil, pt can be up to B/R & in room independently.
--- NOTE | 2020-03-07 14:50 | Physical Therapy Daily Note ---
PT Daily Note-Current Subjective Patient in recliner pre tx, agrees to PT, has no complaints of pain Appearance Patient in recliner post tx with nurse call, phone, tray, all needs met. Discussed with nurse and patient is doing much better with balance and stability and functional mobility, will make him independent in his room now. Mental Status Patient Orientation: Person, Place, Situation Transfers SCALE: Activities may be completed with or without assistive devices. 3-Kfdjojtnjx-bhdwihl completes the activity by him/herself with no assistance from a helper. 5-Set-up or Clean-up Assistance-helper sets up or cleans up; patient completes activity. [place] assists only prior to or following the activity. 4-Supervision or Touching Assistance-helper provides verbal cues and/or touching/steadying and/or contact guard assistance as patient completes activity. Assistance may be provided throughout the activity or intermittently. 3-Partial/Moderate Assistance-helper does LESS THAN HALF the effort. [place] lif ts, holds or supports trunk or limbs, but provides less than half the effort. 2-Substantial/Maximal Assistance-helper does MORE THAN HALF the effort. [place] lifts or holds trunk or limbs and provides more than half the effort. 3-Rlhkttcjj-yypfeg does ALL the effort. Patient does none of the effort to complete the activity. Or, the assistance of 2 or more helpers is required for the patient to complete the activity. If activity was not attempted, code reason: 7-Patient Refused. 9-Not Applicable-not attempted and the patient did not perform the activity before the current illness, exacerbation or injury. 10-Not Attempted due to Environmental Limitations-(lack of equipment, weather restraints, etc.). 88-Not Attempted due to Medical Conditions or Safety Concerns. Sit to Stand (QC): 6 Chair/Awe-zt-Zahlb Xfer(QC): 6 Weight Bearing Right Lower Extremity: Right Full Weight Bearing Left Lower Extremity: Left Full Weight Bearing Gait Training Distance: 120'x2 Walk 10 feet (QC): 6 Walk 50 ft with 2 Turns(QC): 6 Gait Assistive Device: FWW Exercises sit to stand from therapy mat 2 sets of 10 Treatments transfers, ambulation, LE exercise, patient demonstrated that he can ambulate into the restroom and sit on toilet with independence Assessment Current Status: Fair Progress good progress with functional mobility and strength but still gets very SOB with activity and needs frequent rest breaks PT Short Term Goals Short Term Goals Time Frame: Mar 09, 2020 Roll Left & Right: 6 Sit to lyin Lying to sitting on side of be: 6 Sit to stand: 6 Chair/okg-yt-eaklc transfer: 6 PT Primer Press Operator Goals Care Home Goals PT Care Home Goals Time Frame: Mar 16, 2020 Roll Left & Right (QC): 6 Sit to Lying (QC): 6 Lying-Sitting on Side/Bed(QC): 6 Sit to Stand (QC): 6 Chair/Fca-dd-Dkiuq Xfer(QC): 6 Toilet Transfer (QC): 6 Car Transfer (QC): 5 Does the Patient Walk: No and Walking Goal IS indicated Walk 10 feet (QC): 6 Walk 50ft with 2 Turns (QC): 6 Walk 150 ft (QC): 6 Walking 10ft on Uneven Surface: 6 1 Step (curb) (QC): 6 4 Steps (QC): 5 12 Steps (QC): 5 Picking up an Object (QC): 6 Does the Pt use WC or Scooter?: No Wheel 50 feet with 2 turns (QC: 9 Type: N/A Wheel 150 feet: 9 Type: N/A PT Plan Problem List Problem List: Activity Tolerance, Functional Strength, Safety, Balance, Gait, Transfer Treatment/Plan Treatment Plan: Continue Plan of Care Treatment Plan: Bed Mobility, Education, Functional Activity Day, Functional Strength, Group Therapy, Gait, Safety, Therapeutic Exercise, Transfers Treatment Duration: Mar 16, 2020 Frequency: Modified Program (IRF) Estimated Hrs Per Day: Other Patient and/or Family Agrees t: Yes Safety Risks/Education Patient Education: Gait Training, Transfer Techniques, Correct Positioning, Safety Issues Teaching Recipient: Patient Teaching Methods: Demonstration, Discussion Response to Teaching: Reinforcement Needed Time/GCodes Time In: 1415 Time Out: 1445 Total Billed Treatment Time: 30 Total Billed Treatment 1 visit EX 10' GT 20' AYSHA BLACKBURN PT Mar 07, 2020 14:50
[2020-03-07 18:29] VITALS: BP 137/81
[2020-03-07] MEDS: guaiFENesin/CODEINE (ROBITUSSIN AC) 10ML UDC PO PRN (18:39)
[2020-03-07] MEDS: MIRTAZAPINE 15 MG (REMERON) TAB PO SCH (20:05)
[2020-03-08 06:00] VITALS: BP 100/65
[2020-03-08] MEDS: predniSONE 20 MG TAB PO SCH (06:38)
--- NOTE | 2020-03-08 07:03 | Pulmonary Progress Note ---
Subjective Time Seen by a Provider: 07:01 Subjective/Events-last exam No complications noted. Sepsis Event Evaluation Height, Weight, BMI Height: '" Weight: lbs. oz. kg; 26.00 BMI Method: Focused Exam Lactate Level 03/06/20 15:47: Lactic Acid Level 2.00 Exam Exam Vital Signs Date Time Temp Pulse Resp B/P (MAP) Pulse Ox O2 Delivery O2 Flow Rate FiO2 03/08/20 06:00 36.6 83 20 100/65 (77) 99 Nasal Cannula 1.00 03/07/20 21:23 86 Room Air 03/07/20 20:00 92 Room Air 03/07/20 18:40 95 Nasal Cannula 1.00 03/07/20 18:29 36.3 92 20 137/81 (99) 93 Room Air 03/07/20 10:21 95 Room Air 03/07/20 08:36 Room Air I & O 03/08/20 07:00 Intake Total 1550 ml Output Total 1450 ml Balance 100 ml Height & Weight Height: '" Weight: lbs. oz. kg; 26.00 BMI Method: General Appearance: No Apparent Distress, WD/WN, Anxious, Thin HEENT: PERRL/EOMI, Normal ENT Inspection, Pharynx Normal Neck: Full Range of Motion, Normal Inspection, Non Tender, Supple, Carotid Bruit Respiratory: Chest Non Tender, Lungs Clear, No Accessory Muscle Use, No Respiratory Distress, Decreased Breath Sounds Cardiovascular: Regular Rate, Rhythm, No Edema, No Gallop, No JVD, No Murmur, Normal Peripheral Pulses Extremity: Normal Capillary Refill, Normal Inspection, Normal Range of Motion, Non Tender, No Calf Tenderness, No Pedal Edema Neurologic/Psychiatric: Alert, Oriented x3, No Motor/Sensory Deficits, Abnormal Gait, Depressed Affect, Motor Weakness (generalized all extremities) Skin: Normal Color, Warm/Dry Lymphatic: No Adenopathy Results Lab Laboratory Tests 03/06/20 15:47 03/07/20 09:40 Assessment/Plan Assessment/Plan recovering COVID -CT of chest reviewed - No PE does show extensive bilateral infiltrates -Repeat CT of chest as out pt in about 3 mo. -continue prednisone -Oxygen -Labs and CXR reviwed PNA -Continue Cefepime Debility SOFIA ACUÑA DO Mar 08, 2020 07:03
--- NOTE | 2020-03-08 08:32 | PM&R Progress Note ---
Subjective HPI/CC On Admission Date Seen by Provider: Mar 08, 2020 Time Seen by Provider: 11:50 Subjective/Events-last exam 03/08/20: Pt requiring 1 liter of O2 Bowels moved today Completing steroid and antibiotics Dr. Hannon reviewed his imaging scans 03/07/20: Pt still having a lot of SOB Requiring oxygen CT scan shows Covid lungs Consulting Dr. Hannon ABG ordered Steroids will continue 03/06/20: [place] like he has a "cold" Noted O2 requirements now 1L/min CXR revealed COVID lungs Difficult to say whether he has bacterial PNA superimposed Labs checked Increase steroids Added bronchitis abx 03/05/20: Patient is doing well Ambulating well Talked about COVID a lot today and his hospital course prior to coming here 03/04/20: Much improved status Monitor O2 Monitor pain Walking well 03/03/20: Bowels moved today Urinating pretty well Denies any significant new concerns Gaining strength 03/02/20: Bowels are moving Doing very well Dramatic improvement walking Overall no significant issues 03/01/20: Pt doing pretty well Slept well Denies any significant new issues Participating in therapy 02/29/20: Pt slept really well Doing well No pain Getting stronger Monitoring closely 02/28/20: Did not sleep well so willing to try Remeron 15mg and Melatonin Motivated Scoliosis noted Ankle weights provided to help strengthening 02/27/20: Pastoral care visited him and that was helpful given 3 immediate family members have in the past 1 month Trach and PEG dressing changes Aleven on heels Gaining strength 02/26/20: Pastoral care notified Family members 3 of them have within 2 months Tremors noted Heels sore PEG 01/26 placed 02/25/20: Wants PEG tube removed History of placement 01/27/20 No issues Up in chair today Tachycardia noted and on BB NO pain Review of Systems Pulmonary: Dyspnea, Cough Focused Exam Lactate Level 03/06/20 15:47: Lactic Acid Level 2.00 Objective Exam Vital Signs Vital Signs Date Time Temp Pulse Resp B/P (MAP) Pulse Ox O2 Delivery O2 Flow Rate FiO2 03/08/20 20:30 Room Air 03/08/20 18:48 83 03/08/20 18:42 36.4 97 16 139/76 (97) 03/08/20 06:00 1.00 Capillary Refill : General Appearance: No Apparent Distress, WD/WN, Anxious, Thin HEENT: PERRL/EOMI, Normal ENT Inspection, Pharynx Normal Neck: Full Range of Motion, Normal Inspection, Non Tender, Supple, Carotid Bruit Respiratory: Chest Non Tender, Lungs Clear, No Accessory Muscle Use, No Respiratory Distress, Decreased Breath Sounds Cardiovascular: Regular Rate, Rhythm, No Edema, No Gallop, No JVD, No Murmur, Normal Peripheral Pulses Gastrointestinal: Normal Bowel Sounds, No Organomegaly, No Pulsatile Mass, Non Tender, Soft Back: Normal Inspection, No CVA Tenderness, No Vertebral Tenderness Extremity: Normal Capillary Refill, Normal Inspection, Normal Range of Motion, Non Tender, No Calf Tenderness, No Pedal Edema Neurologic/Psychiatric: Alert, Oriented x3, No Motor/Sensory Deficits, Abnormal Gait, Depressed Affect, Motor Weakness (generalized all extremities) Skin: Normal Color, Warm/Dry Lymphatic: No Adenopathy Results/Procedures Lab Patient resulted labs reviewed. FIM Transfers Therapy Code Descriptions/Definitions Functional [place] Measure: 0=Not Assessed/NA 4=Minimal Assistance 1=Total Assistance 5=Supervision or Setup 2=Maximal Assistance 6=Modified [place] 3=Moderate Assistance 7=Complete IndependenceSCALE: Activities may be completed with or without assistive devices. 9-Ylqfsypvzs-qkhzuue completes the activity by him/herself with no assistance from a helper. 5-Set-up or Clean-up Assistance-helper sets up or cleans up; patient completes activity. [place] assists only prior to or following the activity. 4-Supervision or Touching Assistance-helper provides verbal cues and/or touching/steadying and/or contact guard assistance as patient completes activity. Assistance may be provided throughout the activity or intermittently. 3-Partial/Moderate Assistance-helper does LESS THAN HALF the effort. [place] lifts, holds or supports trunk or limbs, but provides less than half the effort. 2-Substantial/Maximal Assistance-helper does MORE THAN HALF the effort. [place] lifts or holds trunk or limbs and provides more than half the effort. 3-Gwuywboao-ajujlb does ALL the effort. Patient does none of the effort to complete the activity. Or, the assistance of 2 or more helpers is required for the patient to complete the activity. If activity was not attempted, code reason: 7-Patient Refused. 9-Not Applicable-not attempted and the patient did not perform the activity before the current illness, exacerbation or injury. 10-Not Attempted due to Environmental Limitations-(lack of equipment, weather restraints, etc.). 88-Not Attempted due to Medical Conditions or Safety Concerns. Roll Left to Right (QC): 6 Sit to Lying (QC): 5 Sit to Stand (QC): 6 Chair/Gsx-ty-Dubqo Xfer(QC): 6 Car Transfer (QC): 88 Gait Training Does the Patient Walk?: Yes Distance: 120'x2 Walk 10 feet (QC): 6 Walk 50 ft with 2 Turns(QC): 6 Walk 150 ft (QC): 3 (CGA for safety) Walking 10ft/uneven surface-QC: 88 Gait Persons Needed: 1 Gait Assistive Device: FWW Wheelchair Training Does the Pt Use a Wheelchair?: Yes Wheel 50 ft with 2 turns (QC): 5 Wheel 150 ft (QC): 5 Type of Wheelchair: Manual Stair Training 1 Step (curb) (QC): 88 4 Steps (QC): 88 12 Steps (QC): 88 Balance Picking up an Object (QC): 88 ADL-Treatment Eating (QC): 6 Oral Hygiene (QC): 6 (completes with IND with items placed in front of pt.) Bathing Location: L Arm, R Arm, L Upper Leg, R Upper Leg, L Lower Leg (including foot), R Lower Leg (including foot), Chest, Abdomen, Buttocks, Perineal Area Shower/Bathe Self (QC): 4 (SUP during all tasks. Pt completes EOB, breaks for breath. ) Upper Body Dressing (QC): 5 (s/u) Lower Body Dressing (QC): 4 (SUP) On/Off Footwear (QC): 6 (IND EOB) Toileting Hygiene (QC): 4 (SUP in stance for bottom care. ) Toilet Transfer (QC): 7 (denies needs for toileting.) Assessment/Plan Assessment and Plan Assess & Plan/Chief Complaint Assessment: 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 Anemia s/p trach now DC Steroids tapered Scoliosis Plan: IRF protocol Increase ADL independence Ambulate O2 monitoring 02/25/20: PEG tube when able to DC will DC Monitor BP and HR Monitor O2 02/26/20: Supportive care Monitor closely 02/27/20: Monitor closely BP stable Pastoral care visit 02/28/20: Insomnia treatment Monitor closely Pain management 02/29/20: Monitor insomnia Therapy Wean O2 03/01/20: Monitor O2 during exertion Insomnia treatment Remeron also helps depression 03/02/20: Monitor insomnia Continue treatment Declines pain meds for scoliosis 03/03/20: Improved ambulation Improved dyspnea Overall dramatic improvement 03/04/20: Monitor O2 Increase ambulation 03/05/20: Ambulate O2 03/06/20: Increase steroid dose Abx Monitor O2 Labs 03/07/20: CT chest Abx Steroids Consult Dr Hannon 03/08/20: URI treatment DC tomorrow Home O2 eval (1) Myopathy (2) History of tracheostomy (3) Frailty (4) Cough (5) Anemia (6) COVID-19 REGIS MAGALLON DO Mar 08, 2020 08:32
--- NOTE | 2020-03-08 09:04 | Occupational Ther Daily Note ---
OT Current Status-Daily Note Subjective Pt started tx laying in bed and agreeable to OT tx. Mental Status/Objective Patient Orientation: Person, Place, Time, Situation ADL-Treatment Therapy Code Descriptions/Definitions Functional [place] Measure: 0=Not Assessed/NA 4=Minimal Assistance 1=Total Assistance 5=Supervision or Setup 2=Maximal Assistance 6=Modified [place] 3=Moderate Assistance 7=Complete IndependenceSCALE: Activities may be completed with or without assistive devices. 2-Wzcxxjcopw-wlqeshw completes the activity by him/herself with no assistance from a helper. 5-Set-up or Clean-up Assistance-helper sets up or cleans up; patient completes activity. [place] assists only prior to or following the activity. 4-Supervision or Touching Assistance-helper provides verbal cues and/or touching/steadying and/or contact guard assistance as patient completes activity. Assistance may be provided throughout the activity or intermittently. 3-Partial/Moderate Assistance-helper does LESS THAN HALF the effort. [place] lifts, holds or supports trunk or limbs, but provides less than half the effort. 2-Substantial/Maximal Assistance-helper does MORE THAN HALF the effort. [place] lifts or holds trunk or limbs and provides more than half the effort. 1-Lmozckipv-epxvea does ALL the effort. Patient does none of the effort to complete the activity. Or, the assistance of 2 or more helpers is required for the patient to complete the activity. If activity was not attempted, code reason: 7-Patient Refused. 9-Not Applicable-not attempted and the patient did not perform the activity b efore the current illness, exacerbation or injury. 10-Not Attempted due to Environmental Limitations-(lack of equipment, weather restraints, etc.). 88-Not Attempted due to Medical Conditions or Safety Concerns. Eating (QC): 6 (per pt report, pt independent with task) Shower/Bathe Self (QC): 5 (Set up for body wash and towels, pt able to wash all body parts Independently) Upper Body Dressing (QC): 6 (Independent, pt able to get clothes from closet and don and doff clothing) Lower Body Dressing (QC): 6 (Pt able to get clothes from closet and don and doff clothing) On/Off Footwear: 6 (Pt able to don and doff footwear) Toileting Hygiene (QC): 6 (pt able to perform clothing management and hygiene independently) Toilet Transfer (QC): 6 (pt able to transfer to toilet with FWW independently) Other Treatment Pt sat EOB to transfer to standing with FWW. Pt first ambulated and got clothes from pt's closet and then ambulated to bathroom. pt transferred to toilet and performed independent hygiene and then ambulated to shower with FWW. Pt showered independently overall, but set up due to covering midline IV and feeding tube at stomach. Pt ambulated from bathroom to recliner with FWW. Post tx, pt in recliner with call light in reach and all needs met. Education OT Patient Education: Energy conservation, Exercise program, Modified ADL techniques, Progress toward Goal/Update tx plan, Purpose of tx/functional activities, Reviewed precautions, Safety issues, Transfer techniques Teaching Recipient: Patient Teaching Methods: Discussion Response to Teaching: Verbalize Understanding OT Short Term Goals Short Term Goals Time Frame: Mar 09, 2020 Eatin Oral hygiene: 5 Toileting hygiene: 4 Shower/bathe self: 4 Upper body dressin Lower body dressin Putting on/taking off footwear: 4 OT Mcc Goals Manager Of Quality Goals Time Frame: Mar 23, 2020 Eating (QC): 6 Oral Hygiene (QC): 6 Toileting Hygiene (QC): 6 Shower/Bathe Self (QC): 6 Upper Body Dressing (QC): 6 Lower Body Dressing (QC): 6 On/Off Footwear (QC): 6 Additional Goals: 1-Demonstrate ADL Tasks, 2-Verbalize Understanding, 3-ImproveStrength/Day 1=Demonstrate adherence to instructed precautions during ADL tasks. 2=Patient will verbalize/demonstrate understanding of assistive devices/modifications for ADL. 3=Patient will improve strength/tolerance for activity to enable patient to perform ADL's. OT Education/Plan Problem List/Assessment Assessment: Decreased Activ Tolerance, Impaired Funct Balance, Restricted Funct UE ROM Discharge Recommendations Plan/Recommendations: Continue POC Treatment Plan/Plan of Care Patient would benefit from OT for education, treatment and training to promote independence in ADL's, mobility, safety and/or upper extremity function for ADL's. Plan of Care: ADL Retraining, Caregiver Training, Concurrent Therapy, Functional Mobility, Group Exercise/Act as Ind, UE Funct Exercise/Act, UE Neuromus Re-Ed/Coord Treatment Duration: Mar 09, 2020 Frequency: Modified Program (IRF) Estimated Hrs Per Day: 1 hour per day Agreement: Yes Rehab Potential: Good Time/GCodes Start Time: 08:00 Stop Time: 09:00 Total Time Billed (hr/min): 60 Billed Treatment Time 1, ADL 4 FLOYD SPAIN OT Mar 08, 2020 09:04
[2020-03-08] MEDS: ADVAIR HFA 115/21 MCG INHALER 8 GM IH SCH ×2 (09:50→18:47)
--- NOTE | 2020-03-08 09:55 | Physical Therapy Daily Note ---
PT Daily Note-Current Subjective Patient in recliner pre tx, agrees to PT, has no complaints of pain. Appearance Patient in bed post tx with nurse call, phone, tray, all needs met. Mental Status Patient Orientation: Normal For Age Attachments: PEG Tube Transfers SCALE: Activities may be completed with or without assistive devices. 0-Farfiapjhb-iqxbwjo completes the activity by him/herself with no assistance from a helper. 5-Set-up or Clean-up Assistance-helper sets up or cleans up; patient completes activity. [place] assists only prior to or following the activity. 4-Supervision or Touching Assistance-helper provides verbal cues and/or touching/steadying and/or contact guard assistance as patient completes activity. Assistance may be provided throughout the activity or intermittently. 3-Partial/Moderate Assistance-helper does LESS THAN HALF the effort. [place] lifts, holds or supports trunk or limbs, but provides less than half the effort. 2-Substantial/Maximal Assistance-helper does MORE THAN HALF the effort. [place] lifts or holds trunk or limbs and provides more than half the effort. 1-Hlfaamjcb-unogwy does ALL the effort. Patient does none of the effort to complete the activity. Or, the assistance of 2 or more helpers is required for the patient to complete the activity. If activity was not attempted, code reason: 7-Patient Refused. 9-Not Applicable-not attempted and the patient did not perform the activity before the current illness, exacerbation or injury. 10-Not Attempted due to Environmental Limitations-(lack of equipment, weather restraints, etc.). 88-Not Attempted due to Medical Conditions or Safety Concerns. Roll Left & Right (QC): 6 Sit to Lying (QC): 6 Lying to Sitting/Side of Bed(Q: 6 Sit to Stand (QC): 6 Chair/Jjk-qo-Gwpyp Xfer(QC): 6 Toilet Transfer (QC): 6 Weight Bearing Right Lower Extremity: Right Full Weight Bearing Left Lower Extremity: Left Full Weight Bearing Gait Training Distance: 120'x4 Walk 10 feet (QC): 6 Walk 50 ft with 2 Turns(QC): 6 Gait Assistive Device: FWW independent, narrow FARSHAD but no unsteadiness or LOB Exercises NuStep Minutes: 15 NuStep Workload: 5 Treatments bed mobility and transfers, ambulation, LE strengthening Assessment Current Status: Fair Progress improving functional mobility but patient still gets very SOB with activity, needs frequent rest breaks PT Short Term Goals Short Term Goals Time Frame: Mar 09, 2020 Roll Left & Right: 6 Sit to lyin Lying to sitting on side of be: 6 Sit to stand: 6 Chair/xbx-lz-buqmn transfer: 6 PT Certified [place] Administrator Goals Nursing Home Goals PT Certified [place] Administrator Goals Time Frame: Mar 16, 2020 Roll Left & Right (QC): 6 Sit to Lying (QC): 6 Lying-Sitting on Side/Bed(QC): 6 Sit to Stand (QC): 6 Chair/Ers-zq-Lsfjq Xfer(QC): 6 Toilet Transfer (QC): 6 Car Transfer (QC): 5 Does the Patient Walk: No and Walking Goal IS indicated Walk 10 feet (QC): 6 Walk 50ft with 2 Turns (QC): 6 Walk 150 ft (QC): 6 Walking 10ft on Uneven Surface: 6 1 Step (curb) (QC): 6 4 Steps (QC): 5 12 Steps (QC): 5 Picking up an Object (QC): 6 Does the Pt use WC or Scooter?: No Wheel 50 feet with 2 turns (QC: 9 Type: N/A Wheel 150 feet: 9 Type: N/A PT Plan Problem List Problem List: Activity Tolerance, Functional Strength, Safety, Balance, Gait, Transfer Treatment/Plan Treatment Plan: Continue Plan of Care Treatment Plan: Bed Mobility, Education, Functional Activity Day, Functional Strength, Group Therapy, Gait, Safety, Therapeutic Exercise, Transfers Treatment Duration: Mar 16, 2020 Frequency: Modified Program (IRF) Estimated Hrs Per Day: Other Patient and/or Family Agrees t: Yes Safety Risks/Education Patient Education: Gait Training, Transfer Techniques, Correct Positioning, Safety Issues Teaching Recipient: Patient Teaching Methods: Demonstration, Discussion Response to Teaching: Reinforcement Needed Time/GCodes Time In: 0900 Time Out: 1000 Total Billed Treatment Time: 60 Total Billed Treatment 1 visit EX 15' GT 45' AYSHA BLACKBURN PT Mar 08, 2020 09:55
[2020-03-08] MEDS: FAMOTIDINE 20 MG (PEPCID) TABLET PO SCH (09:56)
[2020-03-08] MEDS: ENOXAPARIN 40 MG/0.4 ML (LOVENOX) SYR SQ SCH (09:56)
[2020-03-08] MEDS: meTOprolol TARTRATE 50 MG (LOPRESSOR) TAB PO SCH ×2 (09:56→20:15)
[2020-03-08] MEDS: CEFDINIR 300 MG (OMNICEF) CAP PO SCH ×2 (09:56→20:15)
[2020-03-08] MEDS: polyethylene glycoL POWDER 17 GM (MIRALAX) PACK PO SCH ×2 (09:57→20:39)
[2020-03-08] MEDS: DOCUSATE SODIUM 100 MG (COLACE) CAP PO SCH ×2 (09:57→20:39)
[2020-03-08] MEDS: SENNA W/DOCUSATE (SENOKOT S) TABLET PO SCH ×2 (09:57→20:39)
--- NOTE | 2020-03-08 13:42 | NUR ---
CM/SS DISCHARGE PLANNING Patient has requested to discharge home tomorrow. Met with patient and PT/OT therapists this a.m. then discussed with physician. All were in agreement that patient is safe to discharge home with his significant other. OUTPATIENT THERAPY: Patient has requested outpatient therapies at [facility] [place], in his hometown of [place]. Referral initiated, will finalize tomorrow once orders are received. Patient understands that therapy center will contact him directly to set up his schedule. DME: Patient has FWW. OT recommended a shower chair, patient understands this is not an insurance covered item. He indicates he can afford to purchase one if necessary. Patient offered potato picker time of 12 noon tomorrow, Unit RN aware.
--- NOTE | 2020-03-08 14:19 | Occupational Ther Daily Note ---
OT Current Status-Daily Note Subjective Pt agreeable to OT tx and reports no pain. ADL-Treatment Therapy Code Descriptions/Definitions Functional [place] Measure: 0=Not Assessed/NA 4=Minimal Assistance 1=Total Assistance 5=Supervision or Setup 2=Maximal Assistance 6=Modified [place] 3=Moderate Assistance 7=Complete IndependenceSCALE: Activities may be completed with or without assistive devices. 4-Ecpuumyrii-xplmlrc completes the activity by him/herself with no assistance from a helper. 5-Set-up or Clean-up Assistance-helper sets up or cleans up; patient completes activity. [place] assists only prior to or following the activity. 4-Supervision or Touching Assistance-helper provides verbal cues and/or touching/steadying and/or contact guard assistance as patient completes activity. Assistance may be provided throughout the activity or intermittently. 3-Partial/Moderate Assistance-helper does LESS THAN HALF the effort. [place] lifts, holds or supports trunk or limbs, but provides less than half the effort. 2-Substantial/Maximal Assistance-helper does MORE THAN HALF the effort. [place] lifts or holds trunk or limbs and provides more than half the effort. 4-Bojuznuaz-zgeizp does ALL the effort. Patient does none of the effort to complete the activity. Or, the assistance of 2 or more helpers is required for the patient to complete the activity. If activity was not attempted, code reason: 7-Patient Refused. 9-Not Applicable-not attempted and the patient did not perform the activity before the current illness, exacerbation or injury. 10-Not Attempted due to Environmental Limitations-(lack of equipment, weather restraints, etc.). 88-Not Attempted due to Medical Conditions or Safety Concerns. Oral Hygiene (QC): 6 (Independent ) Toilet Transfer (QC): 6 (Independent) Other Treatment Pt began tx using the restroom and once finished transferred self to recliner using FWW, independently. Pt sat in recliner to perform oral hygiene, IND. Pt complete 3lb free weights exercises at 10 reps each of the following, shoulder flexion, shoulder abduction, and elbow flexion/extension. Pt was unable to complete shoulder flexion on L side with 3lb weight, so pt used moderate resistance theraband to complete exercise routine. Pt stated that he was a little too sore from the prior day's session to complete shoulder flexion with 3 lb. Post tx, pt seated in recliner, call light in reach and all needs met. Education OT Patient Education: Exercise program, Modified ADL techniques, Progress toward Goal/Update tx plan, Purpose of tx/functional activities, Reviewed precautions Teaching Recipient: Patient Teaching Methods: Discussion Response to Teaching: Verbalize Understanding OT Short Term Goals Short Term Goals Time Frame: Mar 09, 2020 Eatin Oral hygiene: 5 Toileting hygiene: 4 Shower/bathe self: 4 Upper body dressin Lower body dressin Putting on/taking off footwear: 4 OT Senior Care Goals Senior Care Goals Time Frame: Mar 23, 2020 Eating (QC): 6 Oral Hygiene (QC): 6 Toileting Hygiene (QC): 6 Shower/Bathe Self (QC): 6 Upper Body Dressing (QC): 6 Lower Body Dressing (QC): 6 On/Off Footwear (QC): 6 Additional Goals: 1-Demonstrate ADL Tasks, 2-Verbalize Understanding, 3-ImproveStrength/Day 1=Demonstrate adherence to instructed precautions during ADL tasks. 2=Patient will verbalize/demonstrate understanding of assistive devices/modifications for ADL. 3=Patient will improve strength/tolerance for activity to enable patient to perf orm ADL's. OT Education/Plan Problem List/Assessment Assessment: Decreased Activ Tolerance, Decreased UE Strength, Impaired Funct Balance, Restricted Funct UE ROM Discharge Recommendations Plan/Recommendations: Continue POC Treatment Plan/Plan of Care Patient would benefit from OT for education, treatment and training to promote independence in ADL's, mobility, safety and/or upper extremity function for ADL 's. Plan of Care: ADL Retraining, Caregiver Training, Concurrent Therapy, Functional Mobility, Group Exercise/Act as Ind, UE Funct Exercise/Act, UE Neuromus Re-Ed/Coord Treatment Duration: Mar 09, 2020 Frequency: Modified Program (IRF) Estimated Hrs Per Day: 1 hour per day Agreement: Yes Rehab Potential: Good Time/GCodes Start Time: 13:00 Stop Time: 13:30 Total Time Billed (hr/min): 30 Billed Treatment Time 1, ADL (10), EX (20') FLOYD SPAIN OT Mar 08, 2020 14:19
--- NOTE | 2020-03-08 15:08 | Physical Therapy Daily Note ---
PT Daily Note-Current Subjective Patient in recliner pre tx, agrees to PT, has no complaints of pain. Appearance Patient in bed post tx with nurse call, phone, tray, all needs met. Mental Status Patient Orientation: Normal For Age Transfers SCALE: Activities may be completed with or without assistive devices. 6-Kubeatjyjr-svgfumu completes the activity by him/herself with no assistance from a helper. 5-Set-up or Clean-up Assistance-helper sets up or cleans up; patient completes activity. [place] assists only prior to or following the activity. 4-Supervision or Touching Assistance-helper provides verbal cues and/or touching/steadying and/or contact guard assistance as patient completes activity. Assistance may be provided throughout the activity or intermittently. 3-Partial/Moderate Assistance-helper does LESS THAN HALF the effort. [place] lifts, holds or supports trunk or limbs, but provides less than half the effort. 2-Substantial/Maximal Assistance-helper does MORE THAN HALF the effort. [place] lifts or holds trunk or limbs and provides more than half the effort. 1-Jmmxrcjeo-ugivaz does ALL the effort. Patient does none of the effort to complete the activity. Or, the assistance of 2 or more helpers is required for the patient to complete the activity. If activity was not attempted, code reason: 7-Patient Refused. 9-Not Applicable-not attempted and the patient did not perform the activity before the current illness, exacerbation or injury. 10-Not Attempted due to Environmental Limitations-(lack of equipment, weather restraints, etc.). 88-Not Attempted due to Medical Conditions or Safety Concerns. Roll Left & Right (QC): 6 Sit to Stand (QC): 6 Chair/Wit-ie-Uftkl Xfer(QC): 6 Car Transfer (QC): 6 Weight Bearing Right Lower Extremity: Right Full Weight Bearing Left Lower Extremity: Left Full Weight Bearing Gait Training Distance: 150', 120' Walk 10 feet (QC): 6 Walk 50 ft with 2 Turns(QC): 6 Walk 150 ft (QC): 6 Walking 10ft/uneven surface-QC: 6 Gait Assistive Device: FWW Balance Picking up an Object (QC): 6 Exercises Standing: Heel/toe raises, Mini squats Standing Reps: 15 tandem standing with no arm support, hands hovering over parallel bars, each way for 1 minute Treatments ambulation, transfers, LE exercise Assessment Current Status: Fair Progress improving endurance PT Short Term Goals Short Term Goals Time Frame: Mar 09, 2020 Roll Left & Right: 6 Sit to lyin Lying to sitting on side of be: 6 Sit to stand: 6 Chair/eky-kz-obedy transfer: 6 PT Penitentiary Goals Physical Geographer Goals PT Penitentiary Goals Time Frame: Mar 16, 2020 Roll Left & Right (QC): 6 Sit to Lying (QC): 6 Lying-Sitting on Side/Bed(QC): 6 Sit to Stand (QC): 6 Chair/Ywr-kb-Vxuox Xfer(QC): 6 Toilet Transfer (QC): 6 Car Transfer (QC): 5 Does the Patient Walk: No and Walking Goal IS indicated Walk 10 feet (QC): 6 Walk 50ft with 2 Turns (QC): 6 Walk 150 ft (QC): 6 Walking 10ft on Uneven Surface: 6 1 Step (curb) (QC): 6 4 Steps (QC): 5 12 Steps (QC): 5 Picking up an Object (QC): 6 Does the Pt use WC or Scooter?: No Wheel 50 feet with 2 turns (QC: 9 Type: N/A Wheel 150 feet: 9 Type: N/A PT Plan Problem List Problem List: Activity Tolerance, Functional Strength, Safety, Balance, Gait, Transfer Treatment/Plan Treatment Plan: Continue Plan of Care Treatment Plan: Bed Mobility, Education, Functional Activity Day, Functional Strength, Group Therapy, Gait, Safety, Therapeutic Exercise, Transfers Treatment Duration: Mar 16, 2020 Frequency: Modified Program (IRF) Estimated Hrs Per Day: Other Patient and/or Family Agrees t: Yes Safety Risks/Education Patient Education: Gait Training, Transfer Techniques, Correct Positioning, Safety Issues Teaching Recipient: Patient Teaching Methods: Demonstration, Discussion Response to Teaching: Reinforcement Needed Time/GCodes Time In: 1430 Time Out: 1500 Total Billed Treatment Time: 30 Total Billed Treatment 1 visit GT 15' EX 15' AYSHA BLACKBURN PT Mar 08, 2020 15:07
[2020-03-08 18:42] VITALS: BP 139/76
[2020-03-08] MEDS: MIRTAZAPINE 15 MG (REMERON) TAB PO SCH (20:15)
[2020-03-09 05:59] VITALS: BP 113/65
[2020-03-09] MEDS ORDERED: METO50TA15 PO (06:12)
[2020-03-09] MEDS ORDERED: PRED10TA22 PO (06:12)
[2020-03-09] MEDS ORDERED: CEFD300C3 PO (06:12)
[2020-03-09] MEDS ORDERED: MIRT-47 PO (06:12)
[2020-03-09] MEDS ORDERED: FLUT12AE4 IH (06:12)
--- NOTE | 2020-03-09 06:14 | Discharge Summary ---
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 Anemia s/p trach now DC Steroids tapered Scoliosis Plan: IRF protocol Increase ADL independence Ambulate O2 monitoring 02/25/20: PEG tube when able to DC will DC Monitor BP and HR Monitor O2 02/26/20: Supportive care Monitor closely 02/27/20: Monitor closely BP stable Pastoral care visit 02/28/20: Insomnia treatment Monitor closely Pain management 02/29/20: Monitor insomnia Therapy Wean O2 03/01/20: Monitor O2 during exertion Insomnia treatment Remeron also helps depression 03/02/20: Monitor insomnia Continue treatment Declines pain meds for scoliosis 03/03/20: Improved ambulation Improved dyspnea Overall dramatic improvement 03/04/20: Monitor O2 Increase ambulation 03/05/20: Ambulate O2 03/06/20: Increase steroid dose Abx Monitor O2 Labs 03/07/20: CT chest Abx Steroids Consult Dr Hannon 03/08/20: URI treatment DC tomorrow Home O2 eval (1) Myopathy (2) History of tracheostomy (3) Frailty (4) Cough (5) Anemia (6) COVID-19 Discharge Summary Discharge Physical Examination Allergies: Coded Allergies: No Known Drug Allergies (Unverified , 02/24/20) Vitals & I&Os Vital Signs Date Time Temp Pulse Resp B/P (MAP) Pulse Ox O2 Delivery O2 Flow Rate FiO2 03/09/20 13:16 36.6 99 18 137/87 90 Room Air 03/08/20 06:00 1.00 General Appearance: Alert, Oriented X3, Cooperative Respiratory: Clear to Auscultation Cardiovascular: Regular Rate Neuro: Normal Gait, Normal Speech, Strength at 5/5 X4 Ext Psych/Mental Status: Mental Status NL Hospital Course Was the Problem List Reviewed?: Yes Hospital course: Pt had an uneventful hospital course for two weeks while in rehab due to critical illness myopathy due to Covid-19, overall he did very well, had an episode of bronchitis and exacerbation of lung disease of which resolved with Omnicef and Prednisone. Overall was doing very well, baseline with scoliosis was limited a bit but he was back to his baseline, was much improved, did not require home oxygen evaluation since he does have oxygen at home and overall he was ready for discharge and deemed stable for discharge. PEG tube can be removed mid April. Labs (last 24 hrs) Laboratory Tests 02/25/20 05:45: White Blood Count 9.2, Red Blood Count 3.45L, Hemoglobin 10.3L, Hematocrit 33L, Mean Corpuscular Volume 95, Mean Corpuscular Hemoglobin 30, Mean Corpuscular Hemoglobin Concent 31L, Red Cell Distribution Width 16.9H, Platelet Count 198, Mean Platelet Volume 10.0, Immature Granulocyte % (Auto) 1, Neutrophils (%) (Auto) 59, Lymphocytes (%) (Auto) 26, Monocytes (%) (Auto) 9, Eosinophils (%) (Auto) 5, Basophils (%) (Auto) 1, Neutrophils # (Auto) 5.4, Lymphocytes # (Auto) 2.4, Monocytes # (Auto) 0.8, Eosinophils # (Auto) 0.5H, Basophils # (Auto) 0.1, Immature Granulocyte # (Auto) 0.1, Sodium Level 138, Potassium Level 3.7, Chloride Level 103, Carbon Dioxide Level 25, Anion Gap 10, Blood Urea Nitrogen 13, Creatinine 1.00, Estimat Glomerular Filtration Rate > 60, BUN/Creatinine Ratio 13, Glucose Level 92, Calcium Level 8.5, Corrected Calcium 9.1, Total Bilirubin 0.4, Aspartate Amino Transf (AST/SGOT) 25, Alanine Aminotransferase (ALT/SGPT) 79H, Alkaline Phosphatase 97, Total Protein 6.1L, Albumin 3.2 02/29/20 06:00: White Blood Count 8.6, Red Blood Count 3.54L, Hemoglobin 10.6L, Hematocrit 34L, Mean Corpuscular Volume 96, Mean Corpuscular Hemoglobin 30, Mean Corpuscular Hemoglobin Concent 31L, Red Cell Distribution Width 16.5H, Platelet Count 190, Mean Platelet Volume 9.9, Immature Granulocyte % (Auto) 1, Neutrophils (%) (Auto) 55, Lymphocytes (%) (Auto) 32, Monocytes (%) (Auto) 8, Eosinophils (%) (Auto) 4, Basophils (%) (Auto) 1, Neutrophils # (Auto) 4.7, Lymphocytes # (Auto) 2.7, Monocytes # (Auto) 0.7, Eosinophils # (Auto) 0.3, Basophils # (Auto) 0.1, Immature Granulocyte # (Auto) 0.1, Sodium Level 141, Potassium Level 3.8, Chloride Level 105, Carbon Dioxide Level 28, Anion Gap 8, Blood Urea Nitrogen 9, Creatinine 0.99, Estimat Glomerular Filtration Rate > 60, BUN/Creatinine Ratio 9, Glucose Level 88, Calcium Level 8.6, Corrected Calcium 9.2, Total Bilirubin 0 .4, Aspartate Amino Transf (AST/SGOT) 26, Alanine Aminotransferase (ALT/SGPT) 73H, Alkaline Phosphatase 82, Total Protein 6.1L, Albumin 3.3 03/06/20 15:47: White Blood Count 10.4, Red Blood Count 3.82L, Hemoglobin 11.6L, Hematocrit 37L, Mean Corpuscular Volume 96, Mean Corpuscular Hemoglobin 30, Mean Corpuscular Hemoglobin Concent 32, Red Cell Distribution Width 15.6H, Platelet Count 214, Mean Platelet Volume 10.3, Immature Granulocyte % (Auto) 0, Neutrophils (%) (Auto) 76H, Lymphocytes (%) (Auto) 17, Monocytes (%) (Auto) 3, Eosinophils (%) (Auto) 3, Basophils (%) (Auto) 1, Neutrophils # (Auto) 8.0H, Lymphocytes # (Auto) 1.8, Monocytes # (Auto) 0.3, Eosinophils # (Auto) 0.3, Basophils # (Auto) 0.1, Immature Granulocyte # (Auto) 0.0, Sodium Level 138, Potassium Level 4.2, Chloride Level 103, Carbon Dioxide Level 22, Anion Gap 13, Blood Urea Nitrogen 8, Creatinine 1.05, Estimat Glomerular Filtration Rate > 60, BUN/Creatinine Ratio 8, Glucose Level 101, Calcium Level 8.7, Corrected Calcium 9.1, Total Bilirubin 0.3, Aspartate Amino Transf (AST/SGOT) 17, Alanine Aminotransferase (ALT/SGPT) 39, Alkaline Phosphatase 89, Total Protein 6.7, Albumin 3.5, Lactic Acid Level 2.00, Procalcitonin 0.06 03/07/20 09:40: White Blood Count 12.2H, Red Blood Count 4.11L, Hemoglobin 12.3L, Hematocrit 39L , Mean Corpuscular Volume 95, Mean Corpuscular Hemoglobin 30, Mean Corpuscular Hemoglobin Concent 32, Red Cell Distribution Width 15.4H, Platelet Count 252, Mean Platelet Volume 10.4, Immature Granulocyte % (Auto) 0, Neutrophils (%) (Auto) 85H, Lymphocytes (%) (Auto) 12, Monocytes (%) (Auto) 3, Eosinophils (%) (Auto) 0, Basophils (%) (Auto) 0, Neutrophils # (Auto) 10.3H, Lymphocytes # (Auto) 1.5, Monocytes # (Auto) 0.3, Eosinophils # (Auto) 0.0, Basophils # (Auto) 0.0, Immature Granulocyte # (Auto) 0.0, Sodium Level 139, Potassium Level 4.2, Chloride Level 102, Carbon Dioxide Level 20L, Anion Gap 17H, Blood Urea Nitrogen 10, Creatinine 1.01, Estimat Glomerular Filtration Rate > 60, BUN/Creatinine Ratio 10, Glucose Level 117H, Calcium Level 9.5, Corrected Calcium 9.6, Total Bilirubin 0.4, Aspartate Amino Transf (AST/SGOT) 29, Alanine Aminotransferase (ALT/SGPT) 46, Alkaline Phosphatase 93, Total Protein 7.6, Albumin 3.9 03/07/20 12:13: Blood Gas Puncture Site LR, Blood Gas Patient Temperature 36.4, Arterial Blood pH 7.42, Arterial Blood Partial Pressure CO2 36, Arterial Blood Partial Pressure O2 64L, Arterial Blood HCO3 23, Arterial Blood Total CO2 23.9, Arterial Blood Oxygen Saturation 93L, Arterial Blood Base Excess -1.3, Narayan Test YES-POS, Blood Gas Ventilator Setting NO, Blood Gas Inspired Oxygen RA Pending Labs Laboratory Tests 02/25/20 05:45: White Blood Count 9.2, Red Blood Count 3.45, Hemoglobin 10.3, Hematocrit 33, Mean Corpuscular Volume 95, Mean Corpuscular Hemoglobin 30, Mean Corpuscular Hemoglobin Concent 31, Red Cell Distribution Width 16.9, Platelet Count 198, Mean Platelet Volume 10.0, Immature Granulocyte % (Auto) 1, Neutrophils (%) (Auto) 59, Lymphocytes (%) (Auto) 26, Monocytes (%) (Auto) 9, Eosinophils (%) (Auto) 5, Basophils (%) (Auto) 1, Neutrophils # (Auto) 5.4, Lymphocytes # (Auto) 2.4, Monocytes # (Auto) 0.8, Eosinophils # (Auto) 0.5, Basophils # (Auto) 0.1, Immature Granulocyte # (Auto) 0.1, Sodium Level 138, Potassium Level 3.7, Chloride Level 103, Carbon Dioxide Level 25, Anion Gap 10, Blood Urea Nitrogen 13, Creatinine 1.00, Estimat Glomerular Filtration Rate > 60, BUN/Creatinine Ratio 13, Glucose Level 92, Calcium Level 8.5, Corrected Calcium 9.1, Total Bilirubin 0.4, Aspartate Amino Transf (AST/SGOT) 25, Alanine Aminotransferase (ALT/SGPT) 79, Alkaline Phosphatase 97, Total Protein 6.1, Albumin 3.2 02/29/20 06:00: White Blood Count 8.6, Red Blood Count 3.54, Hemoglobin 10.6, Hematocrit 34, Mean Corpuscular Volume 96, Mean Corpuscular Hemoglobin 30, Mean Corpuscular Hemoglobin Concent 31, Red Cell Distribution Width 16.5, Platelet Count 190, Mean Platelet Volume 9.9, Immature Granulocyte % (Auto) 1, Neutrophils (%) (Auto) 55, Lymphocytes (%) (Auto) 32, Monocytes (%) (Auto) 8, Eosinophils (%) (Auto) 4, Basophils (%) (Auto) 1, Neutrophils # (Auto) 4.7, Lymphocytes # (Auto) 2.7, Monocytes # (Auto) 0.7, Eosinophils # (Auto) 0.3, Basophils # (Auto) 0.1, Immature Granulocyte # (Auto) 0.1, Sodium Level 141, Potassium Level 3.8, Chloride Level 105, Carbon Dioxide Level 28, Anion Gap 8, Blood Urea Nitrogen 9, Creatinine 0.99, Estimat Glomerular Filtration Rate > 60, BUN/Creatinine Ratio 9, Glucose Level 88, Calcium Level 8.6, Corrected Calcium 9.2, Total Bilirubin 0.4, Aspartate Amino Transf (AST/SGOT) 26, Alanine Aminotransferase (ALT/SGPT) 73, Alkaline Phosphatase 82, Total Protein 6.1, Albumin 3.3 03/06/20 15:47: White Blood Count 10.4, Red Blood Count 3.82, Hemoglobin 11.6, Hematocrit 37, Mean Corpuscular Volume 96, Mean Corpuscular Hemoglobin 30, Mean Corpuscular Hemoglobin Concent 32, Red Cell Distribution Width 15.6, Platelet Count 214, Mean Platelet Volume 10.3, Immature Granulocyte % (Auto) 0, Neutrophils (%) (Auto) 76, Lymphocytes (%) (Auto) 17, Monocytes (%) (Auto) 3, Eosinophils (%) (Auto) 3, Basophils (%) (Auto) 1, Neutrophils # (Auto) 8.0, Lymphocytes # (Auto) 1.8, Monocytes # (Auto) 0.3, Eosinophils # (Auto) 0.3, Basophils # (Auto) 0.1, Immature Granulocyte # (Auto) 0.0, Sodium Level 138, Potassium Level 4.2, Chloride Level 103, Carbon Dioxide Level 22, Anion Gap 13, Blood Urea Nitrogen 8, Creatinine 1.05, Estimat Glomerular Filtration Rate > 60, BUN/Creatinine Ratio 8, Glucose Level 101, Calcium Level 8.7, Corrected Calcium 9.1, Total Bilirubin 0.3, Aspartate Amino Transf (AST/SGOT) 17, Alanine Aminotransferase (ALT/SGPT) 39, Alkaline Phosphatase 89, Total Protein 6.7, Albumin 3.5, Lactic Acid Level 2.00, Procalcitonin 0.06 03/07/20 09:40: White Blood Count 12.2, Red Blood Count 4.11, Hemoglobin 12.3, Hematocrit 39, Mean Corpuscular Volume 95, Mean Corpuscular Hemoglobin 30, Mean Corpuscular Hemoglobin Concent 32, Red Cell Distribution Width 15.4, Platelet Count 252, Mean Platelet Volume 10.4, Immature Granulocyte % (Auto) 0, Neutrophils (%) (Auto) 85, Lymphocytes (%) (Auto) 12, Monocytes (%) (Auto) 3, Eosinophils (%) (Auto) 0, Basophils (%) (Auto) 0, Neutrophils # (Auto) 10.3, Lymphocytes # (Auto) 1.5, Monocytes # (Auto) 0.3, Eosinophils # (Auto) 0.0, Basophils # (Auto) 0.0, Immature Granulocyte # (Auto) 0.0, Sodium Level 139, Potassium Level 4.2, Chloride Level 102, Carbon Dioxide Level 20, Anion Gap 17, Blood Urea Nitrogen 10, Creatinine 1.01, Estimat Glomerular Filtration Rate > 60, BUN/Creatinine Ratio 10, Glucose Level 117, Calcium Level 9.5, Corrected Calcium 9.6, Total Bilirubin 0.4, Aspartate Amino Transf (AST/SGOT) 29, Alanine Aminotransferase (ALT/SGPT) 46, Alkaline Phosphatase 93, Total Protein 7.6, Albumin 3.9 03/07/20 12:13: Blood Gas Puncture Site LR, Blood Gas Patient Temperature 36.4, Arterial Blood pH 7.42, Arterial Blood Partial Pressure CO2 36, Arterial Blood Partial Pressure O2 64, Arterial Blood HCO3 23, Arterial Blood Total CO2 23.9, Arterial Blood Oxygen Saturation 93, Arterial Blood Base Excess -1.3, Narayan Test YES-POS, Blood Gas Ventilator Setting NO, Blood Gas Inspired Oxygen RA Discharge Home Medications: Active Scripts Active Prednisone 10 Mg Tab.ds.pk 10 Mg PO DAILY Take 4 tabs(40mg)daily,decrease by 1 tab(10MG) every other day. Advair Hfa 115-21 Mcg Inhaler (Fluticasone/Salmeterol) 12 Gm Hfa.aer.ad 0 Puff IH RTBID Mirtazapine 15 Mg Tab.rapdis 15 Mg PO HS Metoprolol Tartrate 50 Mg Tablet 100 Mg PO BID Cefdinir 300 Mg Capsule 300 Mg PO BID Instructions to patient/family Please see electronic discharge instructions given to patient. Diagnosis/Problems Diagnosis/Problems (1) Myopathy (2) History of tracheostomy (3) Frailty (4) Cough (5) Anemia (6) COVID-19 REGIS MAGALLON DO Mar 09, 2020 06:14
[2020-03-09] MEDS: predniSONE 20 MG TAB PO SCH (06:49)
[2020-03-09 08:00] VITALS: BP 137/87
--- NOTE | 2020-03-09 08:12 | Pulmonary Progress Note ---
Subjective Time Seen by a Provider: 08:11 Subjective/Events-last exam No complications noted. Sepsis Event Evaluation Height, Weight, BMI Height: '" Weight: lbs. oz. kg; 26.00 BMI Method: Focused Exam Lactate Level 03/06/20 15:47: Lactic Acid Level 2.00 Exam Exam Vital Signs Date Time Temp Pulse Resp B/P (MAP) Pulse Ox O2 Delivery O2 Flow Rate FiO2 03/09/20 05:59 36.8 90 18 113/65 (81) 91 Room Air 03/08/20 20:30 Room Air 03/08/20 18:48 83 Room Air 03/08/20 18:42 36.4 97 16 139/76 (97) 94 Room Air 03/08/20 09:00 Room Air I & O 03/09/20 07:00 Intake Total 1100 ml Output Total 1230 ml Balance -130 ml Height & Weight Height: '" Weight: lbs. oz. kg; 26.00 BMI Method: General Appearance: No Apparent Distress, WD/WN, Anxious, Thin HEENT: PERRL/EOMI, Normal ENT Inspection, Pharynx Normal Neck: Full Range of Motion, Normal Inspection, Non Tender, Supple, Carotid Bruit Respiratory: Chest Non Tender, Lungs Clear, No Accessory Muscle Use, No Respiratory Distress, Decreased Breath Sounds Cardiovascular: Regular Rate, Rhythm, No Edema, No Gallop, No JVD, No Murmur, Normal Peripheral Pulses Extremity: Normal Capillary Refill, Normal Inspection, Normal Range of Motion, Non Tender, No Calf Tenderness, No Pedal Edema Neurologic/Psychiatric: Alert, Oriented x3, No Motor/Sensory Deficits, Abnormal Gait, Depressed Affect, Motor Weakness (generalized all extremities) Skin: Normal Color, Warm/Dry Lymphatic: No Adenopathy Results Lab Laboratory Tests 03/07/20 09:40 Assessment/Plan Assessment/Plan recovering COVID -CT of chest reviewed - No PE does show extensive bilateral infiltrates -Repeat CT of chest as out pt in about 3 mo. - prednisone -Oxygen -Labs and CXR reviwed PNA -Cefepime Debility SOFIA ACUÑA DO Mar 09, 2020 08:12
[2020-03-09] MEDS: CEFDINIR 300 MG (OMNICEF) CAP PO SCH (08:36)
[2020-03-09] MEDS: polyethylene glycoL POWDER 17 GM (MIRALAX) PACK PO SCH (08:36)
[2020-03-09] MEDS: FAMOTIDINE 20 MG (PEPCID) TABLET PO SCH (08:36)
[2020-03-09] MEDS: DOCUSATE SODIUM 100 MG (COLACE) CAP PO SCH (08:36)
[2020-03-09] MEDS: SENNA W/DOCUSATE (SENOKOT S) TABLET PO SCH (08:37)
[2020-03-09] MEDS: ENOXAPARIN 40 MG/0.4 ML (LOVENOX) SYR SQ SCH (08:37)
[2020-03-09] MEDS: meTOprolol TARTRATE 50 MG (LOPRESSOR) TAB PO SCH (08:37)
[2020-03-09 13:16] VITALS: BP 137/87
--- NOTE | 2020-03-09 13:46 | NUR ---
CM/SS DISCHARGE Visited with patient this a.m., he is dressed and ready to leave, very excited since he has been hospitalized continuously since 01/04/20. OUTPATIENT THERAPY finalized with [facility]. Patient's Rx was transmitted to [facility] and prior authorization process was required for his Advair. Discussed with pharmacy staff and they forwarded to Dr. Raymond Hannon, Director Of Scientific Research, for processing. Patient confirmed he had all recommended home assistive devices and that he was going to either use a chair from his home or purchase a shower chair for his bathing needs. Roll Filler provided short term disability information to his employer insurer at patient's request and with proper signed authorization to release. Patient has also spoken with appropriate persons both at his employment and his designated sales and marketing representative at [facility]. Roll Filler mailed originals to patient's home address with email confirming they had received the information. Unit RN was aware of all timelines during the discharge process this a.m.
--- NOTE | 2020-03-09 15:48 | Therapy Team Discharge Summary ---
Therapy Discharge Summary Discharge Recommendations Date of Discharge Mar 09, 2020 at 12:00 Physical Therapy Patient came to rehab with critical illness myopathy s/p COVID 19. Upon evaluation patient performed bed mobility with independence, supine <-> sit min/mod assist, sit to stand max assist. Patient has been performing bed mobility and transfer training, balance and endurance training, functional strengthening, stair training, gait training, and education. Patient has made good progress and has met all of his custodial goals except for stairs. Now, patient is independent with bed mobility and transfers, independent with car transfer, ambulates 150' with a rolling walker with independence (including 50' with at least 2 turns of 90 degrees and 10' over an uneven surface), can pickers material handlers and object from the floor with independence. Patient was discharged from this facility and will be discharged from PT at this time. Occupational Therapy Decreased Activ Tolerance, Decreased UE Strength, Impaired Funct Balance, Restricted Funct UE ROM PT Electronic Musical Instrument Repairer Goals Electronic Musical Instrument Repairer Goals PT Electronic Musical Instrument Repairer Goals Time Frame: Mar 16, 2020 Roll Left to Right (QC): 6 Sit to Lying (QC): 6 Lying-Sitting on Side/Bed(QC): 6 Sit to Stand (QC): 6 Chair/Rjl-af-Pqqql Xfer(QC): 6 Car Transfer (QC): 5 Does the Patient Walk: No and Walking Goal IS indicated Walk 10 feet (QC): 6 Walk 10ft-Uneven Surface(QC): 6 Walk 50ft with 2 Turns (QC): 6 Walk 150 ft (QC): 6 Does the Pt use WC or Scooter?: No Wheel 50 feet with 2 turns (QC: 9 1 Step (curb) (QC): 6 4 Steps (QC): 5 12 Steps (QC): 5 Picking up an Object (QC): 6 OT Electronic Musical Instrument Repairer Goals Shelter Goals Time Frame: Mar 23, 2020 Eating (FIM): 6 Eating (QC): 6 Oral Hygiene (QC): 6 Shower/Bathe Self (QC): 6 Upper Body Dressing (QC): 6 Lower Body Dressing (QC): 6 On/Off Footwear (QC): 6 Toileting(FIM): 6 Toileting Hygiene (QC): 6 Toilet/Commode Transfer (QC): 6 Additional Goals: 1-Demonstrate ADL Tasks, 2-Verbalize Understanding, 3- ImproveStrength/Day 1=Demonstrate adherence to instructed precautions during ADL tasks. 2=Patient will verbalize/demonstrate understanding of assistive devices/modifications for ADL. 3=Patient will improve strength/tolerance for activity to enable patient to perform ADL's. AYSHA BLACKBURN PT Mar 09, 2020 15:48
--- NOTE | 2020-03-10 10:24 | Therapy Team Discharge Summary ---
Therapy Discharge Summary Discharge Recommendations Date of Discharge Mar 09, 2020 at 12:00 Occupational Therapy Pt admitted to ARU with critical illness myopathy s/p COVID-19. 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 Upon initial evaluation, pt required SBA with eating and oral care, total assist showering (assist x2), max A upper body dressing, total assist lower body dressing, total assist footwear and max A toileting. OT txs focused on increasing BUE strength and activity tolerance, increasing BUE ROM, and increasing safety and independence with ADLs and functional mobility. Pt made good progress, meeting LTG of independent level with eating, oral care, upper body dressing, lower body dressing, footwear and toileting. Pt did not meet LTG of showering, as he required set up assistance. OT recommends shower chair for pt at discharge. Pt discharged from facility, d/c from OT at this time. Decreased Activ Tolerance, Decreased UE Strength, Impaired Funct Balance, Restricted Funct UE ROM PT Snf Goals Snf Goals PT Lead Sales Consultant Goals Time Frame: Mar 16, 2020 Roll Left to Right (QC): 6 Sit to Lying (QC): 6 Lying-Sitting on Side/Bed(QC): 6 Sit to Stand (QC): 6 Chair/Tit-bp-Xmoem Xfer(QC): 6 Car Transfer (QC): 5 Does the Patient Walk: No and Walking Goal IS indicated Walk 10 feet (QC): 6 Walk 10ft-Uneven Surface(QC): 6 Walk 50ft with 2 Turns (QC): 6 Walk 150 ft (QC): 6 Does the Pt use WC or Scooter?: No Wheel 50 feet with 2 turns (QC: 9 1 Step (curb) (QC): 6 4 Steps (QC): 5 12 Steps (QC): 5 Picking up an Object (QC): 6 OT Lead Sales Consultant Goals Snf Goals Time Frame: Mar 23, 2020 Eating (QC): 6 (met) Oral Hygiene (QC): 6 (met) Shower/Bathe Self (QC): 6 (not met, set up) Upper Body Dressing (QC): 6 (met) Lower Body Dressing (QC): 6 (met) On/Off Footwear (QC): 6 (met) Toileting Hygiene (QC): 6 (met) Toilet/Commode Transfer (QC): 6 (met) Additional Goals: 1-Demonstrate ADL Tasks, 2-Verbalize Understanding, 3- ImproveStrength/Day 1=Demonstrate adherence to instructed precautions during ADL tasks. 2=Patient will verbalize/demonstrate understanding of assistive devices/modifications for ADL. 3=Patient will improve strength/tolerance for activity to enable patient to perform ADL's. FLOYD SPAIN OT Mar 10, 2020 10:24
== END 2020-03-09 12:00 | disposition home or self-care (01) | DRG 91 ==
PROVIDERS: ADMIT Internal Medicine; ATTEND Internal Medicine
DX: G72.81 Critical illness myopathy (principal); J18.9 Pneumonia, unspecified organism; J40 Bronchitis, not specified as acute or chronic; B94.8 Sequelae of other specified infectious and parasitic diseases; M41.9 Scoliosis, unspecified; D64.9 Anemia, unspecified; Z79.52 Long term (current) use of systemic steroids
CPT/HCPCS: 36415; 36600; 71046; 71275; 80053; 82805; 83605; 84145; 85025; 94640; 94664; 94760